=== PATIENT | male | born 1940 | race Caucasian/White ===

== ENCOUNTER 2016-12-14 13:18 | Inpatient (IN) ==
[2016-12-14] MEDS ORDERED: Ipratropium/Albuterol Neb 3 ML ONE (13:30)
[2016-12-14] MEDS ORDERED: Ipratropium/Albuterol Neb 3 ML IH ONE (13:38)
[2016-12-14] MEDS ORDERED: 0.9 % Sodium Chloride 1,000 ML IVC ONE (13:39)
--- NOTE | 2016-12-14 13:48 | Emergency Department Note ---
Disposition Clinical Impression: Hypoxia, Nonspecific ST-T changes, Elevated troponin, REBEKAH (acute kidney injury) CHF exacerbation Qualifiers: Congestive heart failure type: unspecified congestive heart failure type Qualified Code(s): I50.9 - Heart failure, unspecified Anemia Qualifiers: Anemia type: unspecified type Qualified Code(s): D64.9 - Anemia, unspecified UTI (urinary tract infection) Qualifiers: Urinary tract infection type: site unspecified Hematuria presence: without hematuria Qualified Code(s): N39.0 - Urinary tract infection, site not specified Disposition: Admitted As Inpatient Referrals: Molly Cortez CNP [Primary Care Provider] - Forms: ED Satisfaction Letter Time of Disposition: 16:00 SOB HPI - General Chief Complaint: ED Shortness of Breath/Dyspnea Stated Complaint: SOB Time Seen by Provider: 12/14/16 13:38 Source: patient, EMS Mode of arrival: EMS Limitations: no limitations Nursing Notes Reviewed: Yes Vital Signs Reviewed: Yes - History of Present Illness Patient is a 76-year-old male with past medical history pneumonia and receiving Rocephin through midline sinc Nov 24 and PO zithromax 250mg QD, COPD, congestive heart failure on Lasix 40 mg twice a day for CHF, CAD with stents, hypothyroidism, malnutrition, hypertension, hyperlipidemia, peripheral neuropathy, chronic pain syndrome, osteoarthritis. He presents today due to respiratory distress. Patient has [facility] satting upper 70s to low 80s [facility] EMS gave him SoluMedrol [address] Patient is having significant work of breathing, audible rales without using a stethoscope. Patient denies any chest pain, fevers, nausea, vomiting, abdominal pain. He says that this been going on for about a week and then worsening the past few days, prodcutive cough with thick phlegm. - Related Data Home Medications Medication Instructions Recorded Confirmed Albuterol Sulfate [Proair HFA] 90 mcg IH Q4HR PRN 08/20/15 11/14/16 Calcium Carbonate/Vitamin D3 1 each PO DAILY 08/20/15 11/14/16 [Calcium 600 + D Tablet] Cholecalciferol (Vitamin D3) 1,000 unit PO DAILY 08/20/15 11/14/16 [Vitamin D] Dutasteride [Avodart] 0.5 mg PO DAILY 08/20/15 11/14/16 Fenofibrate 48 mg PO DAILY 08/20/15 11/14/16 Gabapentin [Neurontin] 400 mg PO TID 08/20/15 11/14/16 Levothyroxine [Synthroid] 100 mcg PO DAILY 08/20/15 11/14/16 Metoprolol [Lopressor] 50 mg PO BID 08/20/15 11/14/16 Furosemide [Lasix] 80 mg PO DAILY 11/13/16 11/14/16 Guaifenesin [Mucinex] 600 mg PO Q12HR 11/13/16 11/14/16 Ipratropium/Albuterol Sulfate 18 mcg IH QID 11/13/16 11/14/16 [Combivent Respimat Inhal Maben] Sennosides/Docusate Sodium 8.6 mg PO HS 11/13/16 11/14/16 [Senna-Docusate Sodium Tablet] Tamsulosin [Flomax] 0.4 mg PO HS 11/13/16 11/14/16 Previous Rx's Medication Instructions Recorded Oxycodone HCl/Acetaminophen 1 each PO Q4-6H PRN #30 tablet 08/20/15 [Percocet 7.5-325 mg Tablet] Azithromycin [Zithromax] 250 mg IVPB Q24H 30 Days 11/22/16 CefTRIAXone [Rocephin] 1,000 mg IVPB Q12HR 30 Days 11/22/16 Allergies Allergy/AdvReac Type Severity Reaction Status Date / Time No Known Allergies Allergy Verified 11/13/16 20:07 Constitutional: Denies: fever, chills Cardiovascular: Reports: dyspnea on exertion. Denies: chest pain, palpitations Respiratory: Reports: cough, dyspnea, wheezes, sputum production Gastrointestinal: Denies: abdominal pain, nausea, vomiting, diarrhea, constipation Genitourinary: Denies: urgency, dysuria, frequency Musculoskeletal: Denies: back pain, neck pain Integumentary: Denies: rash Neurological: Denies: headache, weakness Psychiatric: Denies: anxiety, depression Past Medical History - Past Medical History Attestation: Yes The following information was validated with the patient. Source: patient Medical history: Reports: cancer, CHF, COPD, hypertension, myocardial infarction , other Surgical history: Reports: cataract, other Psychiatric history: Reports: anxiety - Social History Smoking Status: Current every day smoker Smokeless Tobacco Status: No Alcohol use: Reports: none Drug use: Reports: none Physical Exam - General Limitations: no limitations General appearance: in distress - Head Head exam: atraumatic, normocephalic, normal inspection - Eye Eye exam: Present: normal appearance, PERRL, EOMI - ENT ENT exam: normal exam, normal oropharynx, mucous membranes moist - Neck Neck exam: Present: normal inspection, full ROM, trachea midline - Chest Chest inspection: Present: normal inspection, symmetric chest wall rise - Respiratory Respiratory exam: Present: respiratory distress, accessory muscle use, other ( Patient is an moderate respiratory distress with accessory muscle use, audible rales without the use of a stethoscope. With stethoscope, patient has significant rales in all lung dill and moderate crackles in bilateral lower lobes.) - Cardiovascular Cardiovascular exam: Present: normal rhythm, tachycardia, normal heart sounds - Abdominal Exam Abdominal exam: Present: soft, Non-Tender. Absent: tenderness, distention, guarding, rebound, rigidity - Extremities Exam Extremities exam: Present: full ROM, pedal edema (From thigh to feet bilaterally , pitting). Absent: tenderness - Back Exam Back exam: Present: normal inspection, full ROM. Absent: tenderness - Neurological Exam Neurological exam: Present: alert, oriented X3 - Psychiatric Psychiatric exam: Present: normal affect, normal mood - Skin Skin exam: Present: warm, dry, intact, normal color Course Course Narrative: Patient was having an upper 70s on presentation. He is now in low to mid 90s on nonrebreather. He already received Solu-Medrol by EMS. Duonebs x3 has been ordered. Currently holding off on Lasix due to blood pressure 100/70. Patient is currently being treated for pneumonia and outside facility with Rocephin and Zithromax. Patient was in moderate respiratory distress on presentation, significant Rales in all lung dill, moderate crackles in bilateral lower lobes. Edema from thigh to feet bilaterally, pitting. We will perform full sepsis workup and CHF workup. We will also obtain EKG, chest x-ray , troponin, blood cultures. We will not start fluids at this time due to fear of fluid overload. We will wait for chest x-ray and then reassess. 14:07 According to the patient, he just stopped his Lasix on December 05. RUE midline placed on Nov 29. 14:26 Chest x-ray shows interstitial pulmonary edema and bilateral pleural effusions. Gave patient IV lasix 80mg and will give trial on BIPAP. 15:42 patient is tolerating BiPAP well. Chest x-ray and labs consistent with CHF exacerbation. Troponin mildly elevated at 0.04. There is also nonspecific ST changes on EKG. Likely secondary to CHF. Aspirin given, no chest pain at this time. Labs also show REBEKAH and anemia. Will admit patient for further care. Patient also has UTI but Dr. Patrick believes it may be due to colonization and would like to refrain from antibiotic treatment for now and send for culture. Otherwise, he has accepted for admission. Chest X-Ray 12/14/16 13:39 IMPRESSION: CHF with interstitial pulmonary edema, bilateral pleural effusions and bibasilar atelectasis. Mild progression from the comparison study. D/ / Bunny Jackson MD / Bunny Jackson MD Interpreting Provider: Bunny Jackson MD Vital Signs Temperature 97.8 F 12/14/16 13:22 Pulse Rate 104 12/14/16 13:22 Respiratory Rate 22 12/14/16 13:22 Blood Pressure 100/73 12/14/16 13:22 O2 Sat by Pulse Oximetry 79 L 12/14/16 13:22 Temperature 97.8 F 12/14/16 13:22 Pulse Rate 68 12/14/16 15:08 Respiratory Rate 13 12/14/16 15:08 Blood Pressure 106/62 12/14/16 15:08 O2 Sat by Pulse Oximetry 96 12/14/16 15:08 Oxygen Delivery Oxygen Delivery Bipap Shortness of Breath/Dyspnea - MDM Narrative Medical decision making narrative: patient is tolerating BiPAP well. Chest x-ray, labs, physical exam consistent with CHF exacerbation. Troponin mildly elevated at 0.04. There is also nonspecific ST changes on EKG. Likely secondary to CHF. Aspirin given, no chest pain at this time. Labs also show REBEKAH and anemia. Will admit patient for further care. Patient also has UTI but Dr. Patrick believes it may be due to colonization and would like to refrain from antibiotic treatment for now and send for culture. Otherwise, he has accepted for admission. - Medical Records Medical records reviewed: Yes I reviewed the patient's medical records. - Lab Data Lab results reviewed: Yes I reviewed the patient's lab results. Result diagrams: 12/14/16 14:22 12/14/16 14:22 Lab Results 12/14/16 12/14/16 12/14/16 Range/Units 13:50 14:22 14:22 WBC 6.3 (4.3-11.1) K/mcL RBC 3.88 L (4.19-5.50) M/mcL Hgb 10.8 L (12.9-16.9) g/dL Hct 35.7 L (37.5-50.1) % MCV 92.0 (83.0-100.0) fL MCH 27.8 L (28.0-33.3) pg MCHC 30.3 L (31.6-35.5) g/dL RDW 15.0 H (11.5-14.5) % Plt Count 180 (140-400) K/mcL MPV 11.1 (9.4-12.4) fL Immature Gran % 0.6 (0-4) % Seg Neutrophils % 76.5 % Lymphocytes % 15.4 % Monocytes % 3.8 % Eosinophils % 2.9 % Basophils % 0.8 % Neutrophils # 4.8 (1.6-8.9) K/mcL Lymphocytes # 1.0 (0.6-4.6) K/mcL Monocytes # 0.2 (0.0-1.3) K/mcL Eosinophils # 0.2 (0.0-0.6) K/mcL Basophils # 0.1 (0.0-0.2) K/mcL PT (9.4-12.1) Seconds INR APTT (26.0-36.0) Seconds ABG pH 7.43 (7.32-7.45) pH Units ABG pCO2 52 H (35-45) mmHg ABG pO2 73 L (85-104) mmHg ABG HCO3 34.5 H (21-27) mEQ/L ABG Total CO2 36.1 H (20-26) mEq/L ABG O2 Saturation 95 (95-98) % ABG Base Excess 9.0 H (-2.0 to 3.0) mEq/L Blood Gas Modality MASK Inspired O2 60 % Sodium 141 (136-145) mEq/L Potassium 4.8 H (3.5-4.5) mEq/L Chloride 102 (98-109) mEq/L Carbon Dioxide 31 H (19-29) mEq/L BUN 39 H (8-26) mg/dL Creatinine 2.06 H (0.72-1.25) mg/dL Est GFR ( Amer) 38 L (> 60) Est GFR (Non-Af Amer) 31 L (> 60) BUN/Creatinine Ratio 19 (6-26) Glucose 112 H (70-99) mg/dL Calculated Osmolality 302 H (280-300) Lactic Acid (0.5-2.2) mmol/L Calcium 9.0 (8.6-10.8) mg/dL Phosphorus 5.2 H (2.3-4.7) mg/dL Magnesium 2.3 (1.6-2.6) mg/dL Troponin I (0-0.03) ng/mL B-Natriuretic Peptide (0-100) pg/mL Urine Color (Yellow) Urine Clarity (Clear) Urine pH (5.0-8.0) pH Units Ur Specific [place] (1.010-1.025) Urine Protein (Neg-Trace) mg/dL Urine Glucose (UA) (Normal) mg/dL Urine Ketones (Negative) mg/dL Urine Blood (Negative) Urine Nitrite (Negative) Urine Bilirubin (Negative) Urine Urobilinogen (Normal) mg/dL Ur Leukocyte Esterase (Negative) Urine Microscopic RBC (0-3) per hpf Urine Microscopic WBC (0-3) per hpf Ur Squamous Epith Cells (None-Few) per lpf Urine Bacteria (None-Few) per hpf Hyaline Casts (None-Few) per lpf Urine Yeast (None Seen) per hpf Ur Culture Indicated? (NO) 12/14/16 12/14/16 12/14/16 Range/Units 14:22 14:22 14:22 WBC (4.3-11.1) K/mcL RBC (4.19-5.50) M/mcL Hgb (12.9-16.9) g/dL Hct (37.5-50.1) % MCV (83.0-100.0) fL MCH (28.0-33.3) pg MCHC (31.6-35.5) g/dL RDW (11.5-14.5) % Plt Count (140-400) K/mcL MPV (9.4-12.4) fL Immature Gran % (0-4) % Seg Neutrophils % % Lymphocytes % % Monocytes % % Eosinophils % % Basophils % % Neutrophils # (1.6-8.9) K/mcL Lymphocytes # (0.6-4.6) K/mcL Monocytes # (0.0-1.3) K/mcL Eosinophils # (0.0-0.6) K/mcL Basophils # (0.0-0.2) K/mcL PT 11.0 (9.4-12.1) Seconds INR 1.0 APTT 29.0 (26.0-36.0) Seconds ABG pH (7.32-7.45) pH Units ABG pCO2 (35-45) mmHg ABG pO2 (85-104) mmHg ABG HCO3 (21-27) mEQ/L ABG Total CO2 (20-26) mEq/L ABG O2 Saturation (95-98) % ABG Base Excess (-2.0 to 3.0) mEq/L Blood Gas Modality Inspired O2 % Sodium (136-145) mEq/L Potassium (3.5-4.5) mEq/L Chloride (98-109) mEq/L Carbon Dioxide (19-29) mEq/L BUN (8-26) mg/dL Creatinine (0.72-1.25) mg/dL Est GFR ( Amer) (> 60) Est GFR (Non-Af Amer) (> 60) BUN/Creatinine Ratio (6-26) Glucose (70-99) mg/dL Calculated Osmolality (280-300) Lactic Acid (0.5-2.2) mmol/L Calcium (8.6-10.8) mg/dL Phosphorus (2.3-4.7) mg/dL Magnesium (1.6-2.6) mg/dL Troponin I 0.04 H* (0-0.03) ng/mL B-Natriuretic Peptide 397 H (0-100) pg/mL Urine Color (Yellow) Urine Clarity (Clear) Urine pH (5.0-8.0) pH Units Ur Specific [place] (1.010-1.025) Urine Protein (Neg-Trace) mg/dL Urine Glucose (UA) (Normal) mg/dL Urine Ketones (Negative) mg/dL Urine Blood (Negative) Urine Nitrite (Negative) Urine Bilirubin (Negative) Urine Urobilinogen (Normal) mg/dL Ur Leukocyte Esterase (Negative) Urine Microscopic RBC (0-3) per hpf Urine Microscopic WBC (0-3) per hpf Ur Squamous Epith Cells (None-Few) per lpf Urine Bacteria (None-Few) per hpf Hyaline Casts (None-Few) per lpf Urine Yeast (None Seen) per hpf Ur Culture Indicated? (NO) 12/14/16 12/14/16 Range/Units 14:22 14:43 WBC (4.3-11.1) K/mcL RBC (4.19-5.50) M/mcL Hgb (12.9-16.9) g/dL Hct (37.5-50.1) % MCV (83.0-100.0) fL MCH (28.0-33.3) pg MCHC (31.6-35.5) g/dL RDW (11.5-14.5) % Plt Count (140-400) K/mcL MPV (9.4-12.4) fL Immature Gran % (0-4) % Seg Neutrophils % % Lymphocytes % % Monocytes % % Eosinophils % % Basophils % % Neutrophils # (1.6-8.9) K/mcL Lymphocytes # (0.6-4.6) K/mcL Monocytes # (0.0-1.3) K/mcL Eosinophils # (0.0-0.6) K/mcL Basophils # (0.0-0.2) K/mcL PT (9.4-12.1) Seconds INR APTT (26.0-36.0) Seconds ABG pH (7.32-7.45) pH Units ABG pCO2 (35-45) mmHg ABG pO2 (85-104) mmHg ABG HCO3 (21-27) mEQ/L ABG Total CO2 (20-26) mEq/L ABG O2 Saturation (95-98) % ABG Base Excess (-2.0 to 3.0) mEq/L Blood Gas Modality Inspired O2 % Sodium (136-145) mEq/L Potassium (3.5-4.5) mEq/L Chloride (98-109) mEq/L Carbon Dioxide (19-29) mEq/L BUN (8-26) mg/dL Creatinine (0.72-1.25) mg/dL Est GFR ( Amer) (> 60) Est GFR (Non-Af Amer) (> 60) BUN/Creatinine Ratio (6-26) Glucose (70-99) mg/dL Calculated Osmolality (280-300) Lactic Acid 0.9 (0.5-2.2) mmol/L Calcium (8.6-10.8) mg/dL Phosphorus (2.3-4.7) mg/dL Magnesium (1.6-2.6) mg/dL Troponin I (0-0.03) ng/mL B-Natriuretic Peptide (0-100) pg/mL Urine Color Yellow (Yellow) Urine Clarity Cloudy A (Clear) Urine pH 6.5 (5.0-8.0) pH Units Ur Specific [place] 1.012 (1.010-1.025) Urine Protein 100 H (Neg-Trace) mg/dL Urine Glucose (UA) Normal (Normal) mg/dL Urine Ketones Negative (Negative) mg/dL Urine Blood Moderate H (Negative) Urine Nitrite Negative (Negative) Urine Bilirubin Negative (Negative) Urine Urobilinogen Normal (Normal) mg/dL Ur Leukocyte Esterase Small H (Negative) Urine Microscopic RBC 30-50 H (0-3) per hpf Urine Microscopic WBC 50-100 H (0-3) per hpf Ur Squamous Epith Cells Many H (None-Few) per lpf Urine Bacteria Few (None-Few) per hpf Hyaline Casts Few (None-Few) per lpf Urine Yeast Few H (None Seen) per hpf Ur Culture Indicated? YES A (NO) - Radiology Data Radiology results reviewed: Yes I reviewed the patient's radiology results. Chest X-Ray 12/14/16 13:39 IMPRESSION: CHF with interstitial pulmonary edema, bilateral pleural effusions and bibasilar atelectasis. Mild progression from the comparison study. D/ / Bunny Jackson MD / Bunny Jackson MD Interpreting Provider: Bunny Jackson MD - EKG Data EKG attestation: Yes I reviewed and interpreted this EKG. EKG results narrative: EKG #1. 12/14/2016 at 13:48. Normal sinus rhythm. Rate 64. QTC 398. QRS 101. Normal axis. T-wave inversion in aVR, V1, V2, V3. Also mild ST depression in V2 and V3. T waves in lead V3 and ST depression in V2 and V3 are new compared to previous EKG on 11/24/2016 EKG #2. RIGHT SIDED EKG. 12/14/2016 at 13:58. Normal sinus rhythm. Rate 68. QTC 404. QRS 94. Normal Wol[place] No acute ST elevation seen. Critical Care Time Critical Care Time: Yes Total Critical Care Time: 35 Attestation: Critical care performed: Time is exclusive of separately billable procedures. Time includes: direct patient care, patient reassessment, coordination of patient care, interpretation of data (laboratory data, radiology data, and respiratory data), review of patient's medical records, medical consultation and documentation of patient care. Procedures included in critical care time: Procedures excluded from critical care time: . Faustino - Faustino Situation: Demographics, MOA Background: Presenting Complaint, Relevant PMH, Meds, & Allergies Assessment: Vital Signs, Course and respsone to treatment, Exam Concerns, Patient/Family Expectation, Pertinant Lab Results, Outstanding Labs Recommendation: Barrier(s) to disposition, Recommendation based on pending studies, treatments, or consults SMatilde Report Given to: Dr. Darnell Harmon Repor Time: 16:00 Attestation Statement - Attestation Attestation: I examined this patient and my medical decision-making was reviewed with the FLIGHT ENGINEER INSPECTOR/PA/Advanced Practice Nurse/Resident Physician. I agree with the documented findings, disposition and treatment plan as described except to the extent set forth below. Patient emergency department with shortness of breath. [facility] Came in for shortness of breath and hypoxia. History of CHF. Increased swelling in his legs. On exam he is to get visibly dyspneic. Lungs with rales. Rhonchi. Patient has an indwelling [place] with a soft abdomen. Plan. Patient is a CHF exacerbation. He also has a UTI. Starting IV antibiotics. Tolerating BiPAP at this time. Admitting to medicine.
[2016-12-14 14:00] LABS: ABG HCO3 34.5 mEQ/L (21-27); ABG Oxygen Saturation 95 % (95-98); ABG PCO2 52 mmHg (35-45); ABG PH 7.43 pH Units (7.32-7.45); ABG PO2 73 mmHg (85-104); ABG TCO2 36.1 mEq/L (20-26)
[2016-12-14 14:01] LABS: Blood Gas FiO2 60 %
[2016-12-14] MEDS ORDERED: Aspirin 325 MG TABLET PO ONE (14:04)
[2016-12-14] MEDS ORDERED: Furosemide 40 MG/4 ML VIAL IVP ONE (14:18)
[2016-12-14 14:34] LABS: Basophils # 0.1 K/mcL (0.0-0.2); Basophils % 0.8 %; Eosinophils # 0.2 K/mcL (0.0-0.6); Eosinophils % 2.9 %; Hematocrit 35.7 % (37.5-50.1); Hemoglobin 10.8 g/dL (12.9-16.9); Immature Granulocytes % 0.6 % (0-4); Lymphocytes % 15.4 %; Mean Corpuscular HGB Conc 30.3 g/dL (31.6-35.5); Mean Corpuscular Hemoglobin 27.8 pg (28.0-33.3); Mean Platelet Volume 11.1 fL (9.4-12.4); Monocytes # 0.2 K/mcL (0.0-1.3); Monocytes % 3.8 %; Neutrophils # 4.8 K/mcL (1.6-8.9); Platelet Count 180 K/mcL (140-400); Red Blood Count 3.88 M/mcL (4.19-5.50); Segmented Neutrophils % 76.5 %
[2016-12-14 14:44] LABS: Magnesium 2.3 mg/dL (1.6-2.6); Phosphorous 5.2 mg/dL (2.3-4.7); Potassium 4.8 mEq/L (3.5-4.5)
[2016-12-14 14:50] LABS: Bilirubin,Urine Negative (Negative); Blood,Urine Moderate (Negative); Clarity,Urine Cloudy (Clear); Color,Urine Yellow (Yellow); Glucose,Urine (UA) Normal (Normal); Ketones,Urine Negative (Negative); Leukocyte Esterase,Urine Small (Negative); Nitrite,Urine Negative (Negative); PH,Urine 6.5 pH Units (5.0-8.0); Protein,Urine 100 mg/dL (Neg-Trace); Specific Gravity,Urine 1.012 (1.010-1.025); Urobilinogen,Urine Normal (Normal)
[2016-12-14 14:52] LABS: Hyaline Casts,Urine Few per lpf (None-Few); RBC,Urine 30-50 per hpf (0-3); Squamous Epithelial Cell,Urine Many per lpf (None-Few); WBC,Urine 50-100 per hpf (0-3)
[2016-12-14 15:05] LABS: Bacteria,Urine Few per hpf (None-Few); Yeast,Urine Few per hpf (None Seen)
[2016-12-14] MEDS ORDERED: Naloxone 0.4 MG/ML INJ IVP PRN (17:56)
[2016-12-14] MEDS ORDERED: Ipratropium/Albuterol Neb 3 ML IH PRN (17:58)
[2016-12-14] MEDS ORDERED: *HR* HYDROcodone/Acet 5/325 mg TABLET PO PRN (17:58)
--- NOTE | 2016-12-14 18:38 | Internal Med History&Physical ---
Date of Encounter: 12/15/16 Time of Encounter: 18:30 Assessment and Plan (1) Acute on chronic diastolic (congestive) heart failure Current visit: Yes Status: Acute Patient with history of Congestive heart failure. He is presenting with shortness of breath, BLE edema. CXR shows CHF with interstitial pulmonary edema , bilateral pleural effusions and bibasilar atelectasis. Last echo 11/13/2016 showed mild diastolic dysfunction, EF 60-65%. He is taking 80mg of lasix PO BID at home. He was given 80mg lasix IVP in ED and placed on Bipap. Continue Bipap, maintain O2 saturations > 92% 60mg lasix IVP BID. Will plan consult to cardiology. (2) REBEKAH (acute kidney injury) Current visit: Yes Status: Acute Creatinine 2.06 up from previous of 1.12. Likely cardio-renal with acute exacerbation of CHF, however last echo showed EF of 60-65%. will get UA with reflex to culture and micro. Hold off on fluids now due to CHF exacerbation. Anticipate kidney function will worsen with lasix needed for CHF exacerbation. Avoid NSAIDS, ACEs/ARBS Consult to nephrology (3) Acute and chronic respiratory failure with hypoxia Current visit: No Status: Acute Patient with shortness of breath, satting in the 70s on presentation and 79% on 5L NC on my evaluation. ABG shows pCO2 of 52 and PO2 of 73, O2 saturation of 95 %. On bipap, saturation improves to 90s. Continue Bipap. titrate to maintain O2 saturation > 92%. Duoneb treatments QIDR albuterol nebulizer Q2 PRN (4) Chronic indwelling Atkinson catheter Current visit: No Status: Chronic (5) Hypertension Current visit: No Status: Chronic Qualifiers: Hypertension type: essential hypertension Qualified Code(s): I10 - Essential (primary) hypertension (6) DVT prophylaxis Current visit: Yes Status: Acute Up to chair BID anti-embolic stockings Heparin 5,000u SQ BID Internal Medicine - H&P: HPI Chief complaint: shortness of breath Admitted From: Emergency Dept Plans for Post Hospital Care: Transfer [facility] History of present illness: Mr. Bustos is a 76 year old male with HTN, hyperlipidemia, CAD, Congestive heart failure, and chronic pain, who was brought to the ED today by EMS with worsening shortness of breath. He was reportedly satting in the upper 70s to 80s at the care home earlier today. Patient denies any chest pain, fevers, nausea, vomiting, abdominal pain. He says that this been going on for about a week and then worsening the past few days. He reports a productive cough with thick sputum. Patient denies any chest pain, fevers, nausea, vomiting, abdominal pain. Evaluation in the ED was significant for elevated BNP of 397, up from previous of 51, REBEKAH with Creatinine of 2.06, up from previous of 1.12, CXR which showed interstitial pulmonary edema and bilateral pleural effusions. He was given duoneb treatments, 80mg of lasix IVP and put on bipap with improvement of saturations to low 90s. On exam, patient is satting 79% on 5L NC , initially refusing bipap. I explained purpose of bipap was not only to give him oxygen, but to also help push the fluid from his lungs, and he agreed to wear the bipap mask. Once bipap on, patient was satting 100%. Patient seemed a bit confused, likely due to hypoxia, but was able to answer most questions appropriately. His BLE had +3 edema. Past Med Surg Social Fam HX - Past Medical History Medical history: cancer, CHF, COPD, hypertension, myocardial infarction, other Psychiatric history: anxiety - Past Surgical History Surgical History: cataract, other - Social History Smoking Status: Current every day smoker Smokeless Tobacco Status: No Alcohol use: none Drug use: none - Family History Mother Living Status: Father Living Status: Internal Medicine - H&P: Meds Albuterol Sulfate [Proair HFA] 2 puff IH Q4HR PRN 08/20/15 [History] Calcium Carbonate/Vitamin D3 [Calcium 600 + D Tablet] 1 each PO DAILY 08/20/15 [ History] Cholecalciferol (Vitamin D3) [Vitamin D] 1,000 unit PO DAILY 08/20/15 [History] Dutasteride [Avodart] 0.5 mg PO DAILY 08/20/15 [History] Fenofibrate 48 mg PO DAILY 08/20/15 [History] Gabapentin [Neurontin] 400 mg PO TID 08/20/15 [History] Levothyroxine [Synthroid] 100 mcg PO DAILY 08/20/15 [History] Furosemide [Lasix] 80 mg PO DAILY 11/13/16 [History] Guaifenesin [Mucinex] 600 mg PO Q12HR PRN 11/13/16 [History] Ipratropium/Albuterol Sulfate [Combivent Respimat Inhal [place]] 1 - 2 puff IH QID 11/13/16 [History] Sennosides/Docusate Sodium [Senna-Docusate Sodium Tablet] 8.6 mg PO HS 11/13/16 [History] Tamsulosin [Flomax] 0.4 mg PO HS 11/13/16 [History] HYDROcodone/Acet 5/325 mg [[place] 5-325 mg] 1 tab PO Q8H PRN 12/14/16 [History] Ipratropium/Albuterol Neb [Duoneb] 3 ml IH Q6H PRN 12/14/16 [History] Metoprolol [Lopressor] 25 mg PO BID 12/14/16 [History] Mometasone/Formoterol [Dulera 200 Mcg/5 Mcg Inhaler] 2 puff IH BID 12/14/16 [ History] Allergies No Known Allergies Allergy (Verified 11/13/16 20:07) All Systems PM: A 10-system review of systems was performed and is negative for pertinent findings except as documented above in the HPI. - Constitutional Constitutional: no chills, no fever(s), no night sweats - EENT Eyes: no change in vision, no discharge, no pain, no photophobia Ears: no ear discharge, no ear pain, no tinnitus Nose, mouth and throat: no dysphagia, no nasal discharge, no neck pain, no sore throat - Cardiovascular Cardiovascular ROS IM: dyspnea, dyspnea on exertion, edema, no chest pain, no diaphoresis, no lightheadedness, no palpitations, no syncope - Respiratory Respiratory: cough, dyspnea, dyspnea on exertion, wheezing, excessive phlegm production - Gastrointestinal Gastrointestinal: no abdominal pain, no diarrhea, no hematemesis, no hematochezia, no melena, no nausea, no vomiting - Musculoskeletal Musculoskeletal ROS IM: no numbness, no tingling - Integumentary Integumentary IM: no rash, no unusual bruising - Neurological Neurological ROS: no confusion, no convulsions, no focal weakness, no numbness, no tingling, no tremor(s) - Hematologic/Lymphatic Hematologic/Lymphatic: no easy bruising - Constitutional Vitals: Temp Pulse Resp BP Pulse Ox 97.8 F 85 20 126/66 79 L 12/14/16 13:22 12/14/16 17:18 12/14/16 17:18 12/14/16 17:18 12/14/16 17:18 General appearance: Present: A&O X 3, answers questions appropriately - Head Head exam: Present: atraumatic, normocephalic - Eye Eye exam: Present: PERRL, conjuntiva pink, sclera anicteric Pupils: Present: PERRL - Neck Neck exam general surgery: Present: supple, trachea midline. Absent: lymphadenopathy - Respiratory Respiratory exam: Present: prolonged expiratory phase, rales, rhonchi, wheezes. Absent: accessory muscle use - Cardiovascular Cardiovascular exam: Present: RRR, +S1, +S2. Absent: diastolic murmur, gallop, rubs, systolic murmur - GI/Abdominal GI/Abdominal exam: Present: normal bowel sounds, soft, no peritoneal signs. Absent: distended, tenderness - Extremities Exam Extremities exam: Present: pedal edema (BLE +3 edema), warm, radial pulses palpable and symetrical. Absent: calf tenderness, cyanotic - Neurological Exam Neurological exam: Present: CN II-XII intact, oriented X3, no focal deficits. Absent: facial droop, speech deficit - Skin Skin exam: Present: dry, intact Internal Med - H&P Results - Labs CBC & Chem 7: 12/14/16 14:22 12/14/16 14:22 Labs: All Lab Results (24 Hours) 12/14/16 12/14/16 12/14/16 Range/Units 13:50 14:22 14:22 WBC 6.3 (4.3-11.1) K/mcL RBC 3.88 L (4.19-5.50) M/mcL Hgb 10.8 L (12.9-16.9) g/dL Hct 35.7 L (37.5-50.1) % MCV 92.0 (83.0-100.0) fL MCH 27.8 L (28.0-33.3) pg MCHC 30.3 L (31.6-35.5) g/dL RDW 15.0 H (11.5-14.5) % Plt Count 180 (140-400) K/mcL MPV 11.1 (9.4-12.4) fL Immature Gran % 0.6 (0-4) % Seg Neutrophils % 76.5 % Lymphocytes % 15.4 % Monocytes % 3.8 % Eosinophils % 2.9 % Basophils % 0.8 % Neutrophils # 4.8 (1.6-8.9) K/mcL Lymphocytes # 1.0 (0.6-4.6) K/mcL Monocytes # 0.2 (0.0-1.3) K/mcL Eosinophils # 0.2 (0.0-0.6) K/mcL Basophils # 0.1 (0.0-0.2) K/mcL PT (9.4-12.1) Seconds INR APTT (26.0-36.0) Seconds ABG pH 7.43 (7.32-7.45) pH Units ABG pCO2 52 H (35-45) mmHg ABG pO2 73 L (85-104) mmHg ABG HCO3 34.5 H (21-27) mEQ/L ABG Total CO2 36.1 H (20-26) mEq/L ABG O2 Saturation 95 (95-98) % ABG Base Excess 9.0 H (-2.0 to 3.0) mEq/L Blood Gas Modality MASK Inspired O2 60 % Sodium 141 (136-145) mEq/L Potassium 4.8 H (3.5-4.5) mEq/L Chloride 102 (98-109) mEq/L Carbon Dioxide 31 H (19-29) mEq/L BUN 39 H (8-26) mg/dL Creatinine 2.06 H (0.72-1.25) mg/dL Est GFR ( Amer) 38 L (> 60) Est GFR (Non-Af Amer) 31 L (> 60) BUN/Creatinine Ratio 19 (6-26) Glucose 112 H (70-99) mg/dL Calculated Osmolality 302 H (280-300) Lactic Acid (0.5-2.2) mmol/L Calcium 9.0 (8.6-10.8) mg/dL Phosphorus 5.2 H (2.3-4.7) mg/dL Magnesium 2.3 (1.6-2.6) mg/dL Troponin I (0-0.03) ng/mL B-Natriuretic Peptide (0-100) pg/mL Urine Color (Yellow) Urine Clarity (Clear) Urine pH (5.0-8.0) pH Units Ur Specific [place] (1.010-1.025) Urine Protein (Neg-Trace) mg/dL Urine Glucose (UA) (Normal) mg/dL Urine Ketones (Negative) mg/dL Urine Blood (Negative) Urine Nitrite (Negative) Urine Bilirubin (Negative) Urine Urobilinogen (Normal) mg/dL Ur Leukocyte Esterase (Negative) Urine Microscopic RBC (0-3) per hpf Urine Microscopic WBC (0-3) per hpf Ur Squamous Epith Cells (None-Few) per lpf Urine Bacteria (None-Few) per hpf Hyaline Casts (None-Few) per lpf Urine Yeast (None Seen) per hpf Ur Culture Indicated? (NO) 12/14/16 12/14/16 12/14/16 Range/Units 14:22 14:22 14:22 WBC (4.3-11.1) K/mcL RBC (4.19-5.50) M/mcL Hgb (12.9-16.9) g/dL Hct (37.5-50.1) % MCV (83.0-100.0) fL MCH (28.0-33.3) pg MCHC (31.6-35.5) g/dL RDW (11.5-14.5) % Plt Count (140-400) K/mcL MPV (9.4-12.4) fL Immature Gran % (0-4) % Seg Neutrophils % % Lymphocytes % % Monocytes % % Eosinophils % % Basophils % % Neutrophils # (1.6-8.9) K/mcL Lymphocytes # (0.6-4.6) K/mcL Monocytes # (0.0-1.3) K/mcL Eosinophils # (0.0-0.6) K/mcL Basophils # (0.0-0.2) K/mcL PT 11.0 (9.4-12.1) Seconds INR 1.0 APTT 29.0 (26.0-36.0) Seconds ABG pH (7.32-7.45) pH Units ABG pCO2 (35-45) mmHg ABG pO2 (85-104) mmHg ABG HCO3 (21-27) mEQ/L ABG Total CO2 (20-26) mEq/L ABG O2 Saturation (95-98) % ABG Base Excess (-2.0 to 3.0) mEq/L Blood Gas Modality Inspired O2 % Sodium (136-145) mEq/L Potassium (3.5-4.5) mEq/L Chloride (98-109) mEq/L Carbon Dioxide (19-29) mEq/L BUN (8-26) mg/dL Creatinine (0.72-1.25) mg/dL Est GFR ( Amer) (> 60) Est GFR (Non-Af Amer) (> 60) BUN/Creatinine Ratio (6-26) Glucose (70-99) mg/dL Calculated Osmolality (280-300) Lactic Acid (0.5-2.2) mmol/L Calcium (8.6-10.8) mg/dL Phosphorus (2.3-4.7) mg/dL Magnesium (1.6-2.6) mg/dL Troponin I 0.04 H* (0-0.03) ng/mL B-Natriuretic Peptide 397 H (0-100) pg/mL Urine Color (Yellow) Urine Clarity (Clear) Urine pH (5.0-8.0) pH Units Ur Specific [place] (1.010-1.025) Urine Protein (Neg-Trace) mg/dL Urine Glucose (UA) (Normal) mg/dL Urine Ketones (Negative) mg/dL Urine Blood (Negative) Urine Nitrite (Negative) Urine Bilirubin (Negative) Urine Urobilinogen (Normal) mg/dL Ur Leukocyte Esterase (Negative) Urine Microscopic RBC (0-3) per hpf Urine Microscopic WBC (0-3) per hpf Ur Squamous Epith Cells (None-Few) per lpf Urine Bacteria (None-Few) per hpf Hyaline Casts (None-Few) per lpf Urine Yeast (None Seen) per hpf Ur Culture Indicated? (NO) 12/14/16 12/14/16 12/14/16 Range/Units 14:22 14:43 15:59 WBC (4.3-11.1) K/mcL RBC (4.19-5.50) M/mcL Hgb (12.9-16.9) g/dL Hct (37.5-50.1) % MCV (83.0-100.0) fL MCH (28.0-33.3) pg MCHC (31.6-35.5) g/dL RDW (11.5-14.5) % Plt Count (140-400) K/mcL MPV (9.4-12.4) fL Immature Gran % (0-4) % Seg Neutrophils % % Lymphocytes % % Monocytes % % Eosinophils % % Basophils % % Neutrophils # (1.6-8.9) K/mcL Lymphocytes # (0.6-4.6) K/mcL Monocytes # (0.0-1.3) K/mcL Eosinophils # (0.0-0.6) K/mcL Basophils # (0.0-0.2) K/mcL PT (9.4-12.1) Seconds INR APTT (26.0-36.0) Seconds ABG pH (7.32-7.45) pH Units ABG pCO2 (35-45) mmHg ABG pO2 (85-104) mmHg ABG HCO3 (21-27) mEQ/L ABG Total CO2 (20-26) mEq/L ABG O2 Saturation (95-98) % ABG Base Excess (-2.0 to 3.0) mEq/L Blood Gas Modality Inspired O2 % Sodium (136-145) mEq/L Potassium (3.5-4.5) mEq/L Chloride (98-109) mEq/L Carbon Dioxide (19-29) mEq/L BUN (8-26) mg/dL Creatinine (0.72-1.25) mg/dL Est GFR ( Amer) (> 60) Est GFR (Non-Af Amer) (> 60) BUN/Creatinine Ratio (6-26) Glucose (70-99) mg/dL Calculated Osmolality (280-300) Lactic Acid 0.9 1.2 (0.5-2.2) mmol/L Calcium (8.6-10.8) mg/dL Phosphorus (2.3-4.7) mg/dL Magnesium (1.6-2.6) mg/dL Troponin I (0-0.03) ng/mL B-Natriuretic Peptide (0-100) pg/mL Urine Color Yellow (Yellow) Urine Clarity Cloudy A (Clear) Urine pH 6.5 (5.0-8.0) pH Units Ur Specific [place] 1.012 (1.010-1.025) Urine Protein 100 H (Neg-Trace) mg/dL Urine Glucose (UA) Normal (Normal) mg/dL Urine Ketones Negative (Negative) mg/dL Urine Blood Moderate H (Negative) Urine Nitrite Negative (Negative) Urine Bilirubin Negative (Negative) Urine Urobilinogen Normal (Normal) mg/dL Ur Leukocyte Esterase Small H (Negative) Urine Microscopic RBC 30-50 H (0-3) per hpf Urine Microscopic WBC 50-100 H (0-3) per hpf Ur Squamous Epith Cells Many H (None-Few) per lpf Urine Bacteria Few (None-Few) per hpf Hyaline Casts Few (None-Few) per lpf Urine Yeast Few H (None Seen) per hpf Ur Culture Indicated? YES A (NO) - VTE Documentation of Mechanical Device: Graduated compression elastic hosiery
[2016-12-14] MEDS ORDERED: Ipratropium/Albuterol Neb 3 ML IH SCH (19:15)
--- NOTE | 2016-12-14 19:55 | Electrocardiograph Report ---
[facility] Date: 2016-12-14 Pat Name: Pastor Bustos Department: [id number] Room: 2NE23 Gender: M Hand Rigger: : [id number] Requested By: Jacob Martínez Order Number: [id number] Reading MD: Barry Kimball DO Measurements Intervals [place] Rate: 64 P: 40 SD: 197 QRS: 28 QRSD: 101 T: 33 QT: 388 QTc: 398 Interpretive Statements SINUS RHYTHM ST DEVIATION AND MODERATE T-WAVE ABNORMALITY, CONSIDER ANTERIOR ISCHEMIA [-0.1+ mV T WAVE IN V3/V4] Electronically Signed On 12-14-2016 19:52:56 EST by Barry Kimball DO
[2016-12-14] MEDS ORDERED: Furosemide 40 MG/4 ML VIAL IVP SCH (21:00)
[2016-12-14] MEDS ORDERED: Furosemide 100 MG/10 ML VIAL IVP SCH ×2 (21:00)
[2016-12-14] MEDS: Gabapentin 400 MG CAPSULE PO SCH (21:18)
[2016-12-14] MEDS ORDERED: *HR* LORazepam 2 MG/ML VIAL IVP PRN (21:33)
[2016-12-14] MEDS ORDERED: *HR* LORazepam 2 MG/ML VIAL ONE (21:49)
[2016-12-14] MEDS: Ipratropium/Albuterol Neb 3 ML IH SCH (22:36)
[2016-12-14] MEDS: Budesonide/Formoterol 80/4.5 MDI IH SCH (22:37)
[2016-12-15 04:00] LABS: Basophils % 0.2 %; Hematocrit 31.6 % (37.5-50.1); Hemoglobin 9.7 g/dL (12.9-16.9); Immature Granulocytes % 0.6 % (0-4); Lymphocytes % 21.4 %; Mean Corpuscular HGB Conc 30.7 g/dL (31.6-35.5); Mean Corpuscular Hemoglobin 27.7 pg (28.0-33.3); Mean Corpuscular Volume 90.3 fL (83.0-100.0); Mean Platelet Volume 10.9 fL (9.4-12.4); Monocytes # 0.2 K/mcL (0.0-1.3); Monocytes % 4.7 %; Neutrophils # 3.4 K/mcL (1.6-8.9); Platelet Count 173 K/mcL (140-400); Red Cell Distribution Width 14.7 % (11.5-14.5); Segmented Neutrophils % 73.1 %
[2016-12-15] MEDS: Ipratropium/Albuterol Neb 3 ML IH SCH ×4 (04:11→21:32)
[2016-12-15 04:24] LABS: Calcium 8.8 mg/dL (8.6-10.8); Potassium 5.2 mEq/L (3.5-4.5)
[2016-12-15 04:55] LABS: ABG Base Excess 11.1 mEq/L (-2.0 to 3.0); ABG HCO3 36.7 mEQ/L (21-27); ABG Oxygen Saturation 94 % (95-98); ABG PCO2 54 mmHg (35-45); ABG PH 7.44 pH Units (7.32-7.45); ABG PO2 68 mmHg (85-104); ABG TCO2 38.4 mEq/L (20-26)
[2016-12-15 04:56] LABS: Blood Gas FiO2 60 %; Blood Gas PEEP 6 cm H2O; Blood Gas Respiration Rate 12
[2016-12-15] MEDS: *HR* Heparin 5,000 UNIT/ML VIAL SQ SCH ×2 (05:46→21:22)
--- NOTE | 2016-12-15 08:32 | Nephrology Consult Note ---
Date of Encounter: 12/15/16 Time of Encounter: 08:30 Assessment and Plan (1) REBEKAH (acute kidney injury) Current Visit: Yes Status: Acute Patient has acute kidney injury in association with metabolic alkalosis. I suspect the patient is volume depleted related to the Lasix. I also suspect that the majority of his respiratory complaints are related to COPD. He also has a recent CT scan suggestive of a possible lung mass. My recommendation would be to hold his Lasix. I think he would benefit from another CT scan since it has been a month since his previous one. I also believe he would benefit from aggressive treatment of a COPD exacerbation and possible pulmonary consultation. (2) Abnormal CT scan, chest Current Visit: No Status: Acute (3) Acute exacerbation of chronic obstructive pulmonary disease (COPD) Current Visit: No Status: Acute History of Present Illness - History of Present Illness This is a 76-year-old male who was admitted from the correction with worsening shortness of breath. Patient says he noted over the past several days worsening exertional dyspnea. Apparently was hypoxic at the correction. He subsequently was admitted to the hospital. He is been diagnosed with worsening congestive heart failure. Patient was noted to have acute kidney injury with a creatinine of 2.0. Previous creatinine was 1.12. Chest x-ray suggested congestive heart failure. Patient was admitted in November. He was seen by pulmonary at that time. CT scan showed a possible left upper lobe mass. Patient was recommended to have a repeat CT scan and possible bronchoscopy. Patient has a long history of smoking. He has been smoking since he was 12 years old. Other than the elevated creatinine the patient presented with metabolic alkalosis likely related to chronic Lasix administration. Past Med Surg Social Fam HX - Past Medical History Medical history: cancer, CHF, COPD, hypertension, myocardial infarction, other Psychiatric history: anxiety - Past Surgical History Surgical History: cataract, other - Social History Smoking Status: Current every day smoker Smokeless Tobacco Status: No Alcohol use: none Drug use: none - Family History Mother Living Status: Father Living Status: Medications and Allergies Albuterol Sulfate [Proair HFA] 2 puff IH Q4HR PRN 08/20/15 [History] Calcium Carbonate/Vitamin D3 [Calcium 600 + D Tablet] 1 each PO DAILY 08/20/15 [ History] Cholecalciferol (Vitamin D3) [Vitamin D] 1,000 unit PO DAILY 08/20/15 [History] Dutasteride [Avodart] 0.5 mg PO DAILY 08/20/15 [History] Fenofibrate 48 mg PO DAILY 08/20/15 [History] Gabapentin [Neurontin] 400 mg PO TID 08/20/15 [History] Levothyroxine [Synthroid] 100 mcg PO DAILY 08/20/15 [History] Furosemide [Lasix] 80 mg PO DAILY 11/13/16 [History] Guaifenesin [Mucinex] 600 mg PO Q12HR PRN 11/13/16 [History] Ipratropium/Albuterol Sulfate [Combivent Respimat Inhal [place]] 1 - 2 puff IH QID 11/13/16 [History] Sennosides/Docusate Sodium [Senna-Docusate Sodium Tablet] 8.6 mg PO HS 11/13/16 [History] Tamsulosin [Flomax] 0.4 mg PO HS 11/13/16 [History] HYDROcodone/Acet 5/325 mg [[place] 5-325 mg] 1 tab PO Q8H PRN 12/14/16 [History] Ipratropium/Albuterol Neb [Duoneb] 3 ml IH Q6H PRN 12/14/16 [History] Metoprolol [Lopressor] 25 mg PO BID 12/14/16 [History] Mometasone/Formoterol [Dulera 200 Mcg/5 Mcg Inhaler] 2 puff IH BID 12/14/16 [ History] Allergies No Known Allergies Allergy (Verified 11/13/16 20:07) Review of Systems Constitutional: as per HPI, weakness Eyes: bilateral: blurred vision (patient denies), diplopia (patient denies) Nose, mouth and throat: no dizziness, no headache(s) Cardiovascular: as per HPI, dyspnea, dyspnea on exertion, edema Respiratory: as per HPI, dyspnea, dyspnea on exertion Gastrointestinal: no abdominal pain, no change in bowel habits Musculoskeletal: no muscle weakness, no numbness Integumentary: no hirsutism, no striae Neurological: weakness Psychiatric: no depression, no difficulty concentrating Endocrine: as per HPI Hematologic/Lymphatic: no easy bruising, no lymphadenopathy Exam - Vital Signs Vital signs: Initial Vital Signs Temp Pulse Resp BP Pulse Ox 97.8 F 104 22 100/73 79 L 12/14/16 13:22 12/14/16 13:22 12/14/16 13:22 12/14/16 13:22 12/14/16 13:22 Vital Signs - Last 8 Hours Temp Pulse Resp BP Pulse Ox 12/15/16 06:54 97.5 F L 55 15 110/67 99 12/15/16 04:24 98.9 F 65 12 111/65 98 12/15/16 04:11 9 100 Intake and Output 12/14/16 12/15/16 12/15/16 23:59 07:59 15:59 Intake Total 120 / 120 Output Total 1700 / 1700 Balance -1580 / -1580 Intake: Oral 120 / 120 Output: Catheter 1700 / 1700 Other: Weight 91.2 kg 89.3 kg Patient Weight 12/15/16 23:59 Weight 89.3 kg - General Appearance Exam: Patient is sitting up in the chair eating breakfast. He is alert and oriented. He is in no acute distress. Neck is supple. Lungs bilateral rhonchi and expiratory wheezing. Heart regular rate and rhythm with a 2/6 soft ejection murmur. Abdomen is benign. Lower extremities show trace lower extremity swelling. Compression stockings are in place. A Atkinson catheter is in place draining nii colored urine. Results - Lab Results 12/15/16 03:27 12/15/16 03:27 Most recent lab results ABG pH 7.44 pH Units (7.32-7.45) 12/15/16 04:43 ABG pCO2 54 mmHg (35-45) H 12/15/16 04:43 ABG pO2 68 mmHg (85-104) L 12/15/16 04:43 ABG HCO3 36.7 mEQ/L (21-27) H 12/15/16 04:43 ABG O2 Saturation 94 % (95-98) L 12/15/16 04:43 Calcium 8.8 mg/dL (8.6-10.8) 12/15/16 03:27 Phosphorus 5.2 mg/dL (2.3-4.7) H 12/14/16 14:22 Magnesium 2.3 mg/dL (1.6-2.6) 12/14/16 14:22 Consult Discharge Plan - Plan Referrals: Molly Cortez, RIAZ [Primary Care Provider] -
[2016-12-15] MEDS: Gabapentin 400 MG CAPSULE PO SCH ×3 (09:08→21:22)
--- NOTE | 2016-12-15 10:29 | Internal Med Progress Note ---
<Barry Leavitt - Last Filed: 12/15/16 11:28> Date of Encounter: 12/15/16 Time of Encounter: 08:30 - Assessment and plan (1) Acute on chronic congestive heart failure Current Visit: Yes Status: Acute Assessment and plan: Mr. Menjivar has a history of CAD and CHF. His last echocardiogram (11/14/2016) demonstrated EF 60%, Mild diastolic dysfunction. His CXR demonstrates pulmonary edema and bilateral pleural effusions. He presented with acute worsening of respiratory status but this may be mixed with COPD exacerbation. He also presents with bilateral LE edema 1+ pitting. BNP 397, He is taking Lasix at home but has been held since he was admitted with REBEKAH. Plan: - Hold lasix per nephrology - Continue 2L fluid restrictions - Monitor volume status - Cardiac diet - Daily standing weights and strict I&O monitoring Qualifiers: Congestive heart failure type: systolic Qualified Code(s): I50.23 - Acute on chronic systolic (congestive) heart failure (2) REBEKAH (acute kidney injury) Current Visit: Yes Status: Acute Assessment and plan: Mr. Menjivar presents with creatinine 2.12 and now 2.00. Baseline around 1.12 with GFR >60. He was on Lasix 80mg daily at the shelter. He received 80mg IV once. He has been seen by Dr Saleem and Lasix was discontinued at this time do to volume depletion. He is planned for a renal US today. Plan: - Continue to avoid nephrotoxic medications and renally dose antibiotics. - Nephrology is following. (3) Decompensated COPD with exacerbation (chronic obstructive pulmonary disease) Current Visit: No Status: Acute Assessment and plan: Diffuse wheezing, increased shortness of breath with sputum production. Diminished inspiratory and expiratory breath sounds. Recent hospitalization one month ago with COPD exacerbation, newly diagnosed lung mass and bilateral pleural effusions. PCO2 54, PaO2 68 in the setting of acute respiratory failure and metabolic alkalosis. Plan: - Continue to wean oxygen as tolerated. - Continue scheduled Duoneb - Continue Symbacort - Continue Albuterol inhaler - Start Prednisone 40mg PO daily - Start Levaquin 750 Q48hrs (4) Lung mass Current Visit: No Status: Acute Assessment and plan: Recent diagnosed Left upper lobe mass one month ago measuring 3.4cm with adenopathy. Pulmonology was involved with his last visit and recommended follow up CT of the chest 4-6 weeks for reevaluation and possible broncoscopy with ultrasound guided biopsy. He had a thorocentesis performed at that time with the fluid demonstrating reactive mesothelial cells and inflammatory cells. Pleural fluid cultures were negative for acid fast and anaerobes. Lights criteria: Plan: (5) Pleural effusion Current Visit: No Status: Acute Assessment and plan: Bilateral Pleural effusions appreciated on CXR, compared to last CXR demonstrates re-accumulation since thorocentesis. (6) Hyperkalemia Current Visit: Yes Status: Acute Assessment and plan: Potassium 5.2 in the setting of REBEKAH. Likely elevation secondary to poor renal output. Plan: - Lasix has been held, current medications reviewed. - Continue to monitor potassium with am labs. (7) DVT prophylaxis Current Visit: Yes Status: Acute Assessment and plan: subcutaneous Heparin 5000 units Q12hrs. - Subjective Interval history: Mr. Bustos has been seen and evaluated at patient bedside. He is sitting up in the chair with 7L nasal cannula oxygen. He said he did not like the BiPAP and it was uncomfortable. He feels his breathing is better compared to admission yesterday but says this all started when the oxygen at the shelter was not working. He denies any trouble with his kidneys and said he is urinating fine. He feels the fluid restrictions at the shelter were to much and they would remove his fluids. He denies any chest pain, palpitations, abdominal pain. He does feel like he has increased difficulty breathing compared to his baseline. His baseline oxygen is 3-4 Liters. - Constitutional Vitals: Temp Pulse Resp BP Pulse Ox 97.5 F L 55 15 110/67 99 12/15/16 06:54 12/15/16 06:54 12/15/16 06:54 12/15/16 06:54 12/15/16 06:54 General appearance: Present: A&O X 3, answers questions appropriately - Head Head exam: Present: atraumatic, normocephalic - Eye Eye exam: Present: PERRL, conjuntiva pink, sclera anicteric Pupils: Present: PERRL - Neck Neck exam general surgery: Present: supple, trachea midline. Absent: lymphadenopathy - Respiratory Additional comments: Diminished bronchial and vesicular breath sounds with diffuse inspiratory and expiratory wheezing. Chest symmetric correlating with respiratory effort. - Cardiovascular Cardiovascular exam: Present: RRR, +S1, +S2. Absent: diastolic murmur, gallop, rubs, systolic murmur - GI/Abdominal GI/Abdominal exam: Present: normal bowel sounds, soft, no peritoneal signs. Absent: distended, tenderness - Extremities Exam Additional comments: Bilateral 1+ pitting edema, patient has pankaj stocking on. moving all 4 extremities spontaneously. - Back Exam Back exam: Present: normal inspection - Neurological Exam Neurological exam: Present: alert, no focal deficits. Absent: facial droop, speech deficit - Psychiatric Psychiatric exam: Present: normal affect, normal mood Internal Medicine: Result - Labs CBC & Chem 7: 12/15/16 03:27 12/15/16 03:27 Labs: Short CBC 12/15/16 Range/Units 03:27 WBC 4.7 (4.3-11.1) K/mcL Hgb 9.7 L (12.9-16.9) g/dL Hct 31.6 L (37.5-50.1) % Plt Count 173 (140-400) K/mcL Neutrophils # 3.4 (1.6-8.9) K/mcL BMP 12/15/16 03:27 Sodium 143 Potassium 5.2 H Chloride 102 Carbon Dioxide 30 H BUN 41 H Creatinine 2.00 H Glucose 151 H Calcium 8.8 Cardiac Enzymes 12/14/16 Range/Units 20:30 Troponin I 0.03 (0-0.03) ng/mL - ABG Interpretation ABG results: ABG ABG pH 7.44 pH Units (7.32-7.45) 12/15/16 04:43 ABG pCO2 54 mmHg (35-45) H 12/15/16 04:43 ABG pO2 68 mmHg (85-104) L 12/15/16 04:43 ABG O2 Saturation 94 % (95-98) L 12/15/16 04:43 PT/INR, D-dimer PT 11.0 Seconds (9.4-12.1) 12/14/16 14:22 - VTE Documentation of Mechanical Device: Graduated compression elastic hosiery Consult Discharge Plan - Plan Referrals: Molly Cortez, HEAVY EQUIPMENT OPERATOR APPRENTICE [Primary Care Provider] - <Wily Henning P - Last Filed: 12/15/16 14:02> Date of Encounter: 12/15/16 - Constitutional Vitals: Temp Pulse Resp BP Pulse Ox 97.5 F L 72 22 96/72 98 12/15/16 11:37 12/15/16 11:37 12/15/16 11:37 12/15/16 11:37 12/15/16 11:37 Internal Medicine: Result - Labs CBC & Chem 7: 12/15/16 03:27 12/15/16 03:27 Labs: Short CBC 12/15/16 Range/Units 03:27 WBC 4.7 (4.3-11.1) K/mcL Hgb 9.7 L (12.9-16.9) g/dL Hct 31.6 L (37.5-50.1) % Plt Count 173 (140-400) K/mcL Neutrophils # 3.4 (1.6-8.9) K/mcL BMP 12/15/16 03:27 Sodium 143 Potassium 5.2 H Chloride 102 Carbon Dioxide 30 H BUN 41 H Creatinine 2.00 H Glucose 151 H Calcium 8.8 Cardiac Enzymes 12/14/16 Range/Units 20:30 Troponin I 0.03 (0-0.03) ng/mL - ABG Interpretation ABG results: ABG ABG pH 7.44 pH Units (7.32-7.45) 12/15/16 04:43 ABG pCO2 54 mmHg (35-45) H 12/15/16 04:43 ABG pO2 68 mmHg (85-104) L 12/15/16 04:43 ABG O2 Saturation 94 % (95-98) L 12/15/16 04:43 PT/INR, D-dimer PT 11.0 Seconds (9.4-12.1) 12/14/16 14:22 - Impressions Impressions Retroperitoneum Ultrasound 12/15/16 10:00 IMPRESSION: Areas of renal parenchymal thinning are noted bilaterally. Findings are compatible with medical renal disease. No hydronephrosis. D/ /15/2016 11:11:49 Javier Mclean MD / annika Interpreting Provider: Javier Mclean MD - Attending Attestation I examined this patient and my medical decision-making was reviewed with the TENNIS PLAYER/PA/Advanced Practice Nurse/Resident Physician. I agree with the documented findings, disposition and treatment plan as described except to the extent set forth below. complex mutiple issues. clinically dry will start on IVF possible CT chest tomorrow with IR consult Hypoalbumenic and that may be etiology for pleural effusion/leg oedema
--- NOTE | 2016-12-15 10:36 | Cardiology Consult Note ---
Date of Encounter: 12/15/16 Time of Encounter: 10:35 Assessment and Plan (1) Acute on chronic diastolic (congestive) heart failure Current Visit: Yes Status: Acute - patient appears fluid overloaded but this appears to be a multifactorial and not necessarily diastolic heart failure - bilateral +3 pitting edema, bilateral wheezing/rales - CXR reveals with interstitial pulmonary edema, bilateral pleural effusions and bibasilar atelectasis - normally takes 80mg lasix at home - TONE 11/14/16 - EF 60-65%, normal systolic function, mild diastolic dysfunction, normal RV, no valvular dysfunction, estimated RVSP 32 mmHg without pulm hypertension - UOP 2L, would recommend continued IV diuresis however per nephrology consultation should hold lasix - refer to nephrology recommendations regarding fluid status - if not improving may consider echocardiogram - strict I&Os and salt restriction (2) Coronary artery disease Current Visit: Yes Status: Acute - reports CAD s/p 3 stents placed at [place] >10 years - patient reports he occasionally takes his baby aspirin - reports no recent stress test or heart catheterization - consider outpatient ischemic evaluation in the future - denies any chest pain, palpitations, lightheadedness Qualifiers: Coronary Disease-Associated Artery/Lesion type: [place] artery [place] vs. transplanted heart: [place] heart Associated angina: angina presence unspecified Qualified Code(s): I25.10 - Atherosclerotic heart disease of [place] coronary artery without angina pectoris (3) REBEKAH (acute kidney injury) Current Visit: Yes Status: Acute - Cr 2, baseline 1.12 - nephrology consulted Discussion w patient/family: The assessment and plan as outlined above was discussed with the patient and/or family members who expressed understanding and agreement. All questions were answered. Thank you for involving us in the care of your patient. Please call with any questions. History of Present Illness Consult date: 12/15/16 Requesting physician: Cindy Rebolledo Consult reason: CHF exacerbation, CXR pulm edema History of present illness: Mr. Bustos is a 76 year old male with past medical history CAD s/p 3 stents, diastolic CHF (EF 60-65%), HTN, HLD, COPD 4L, and lung mass presents to the ED from care home for worsening shortness of breath. Reportedly he was satting in the 70-80s on 4L NC. Denies any chest pain, fever, nausea, vomiting. Reports this has been progressing over the past few weeks. He has an indwelling catheter secondary to urinary retention. Known lung mass on right side with scheduled outpatient bronchoscopy. Resident at [facility] for IV antibiotics for gram negative bacteremia secondary to E. coli diagnosed on prior admission 11/13/16. Admits to smoking cessation 1 month, prior 1 ppd. Elevated BNP 397 from previous 51. CXR reviewed and showed interstitial pulmonary edma and bilateral pleural effusions. Important CV studies: - TONE 11/14/16 - EF 60-65%, normal systolic function, mild diastolic dysfunction, normal RV, no valvular dysfunction, estimated RVSP 32 mmHg without pulm hypertension Past Med Surg Social Fam HX - Past Medical History Medical history: cancer, CHF, COPD, hypertension, myocardial infarction, other Psychiatric history: anxiety - Past Surgical History Surgical History: cataract, other - Social History Smoking Status: Current every day smoker Smokeless Tobacco Status: No Alcohol use: none Drug use: none - Family History Mother Living Status: Father Living Status: Medications and Allergies Albuterol Sulfate [Proair HFA] 2 puff IH Q4HR PRN 08/20/15 [History] Calcium Carbonate/Vitamin D3 [Calcium 600 + D Tablet] 1 each PO DAILY 08/20/15 [ History] Cholecalciferol (Vitamin D3) [Vitamin D] 1,000 unit PO DAILY 08/20/15 [History] Dutasteride [Avodart] 0.5 mg PO DAILY 08/20/15 [History] Fenofibrate 48 mg PO DAILY 08/20/15 [History] Gabapentin [Neurontin] 400 mg PO TID 08/20/15 [History] Levothyroxine [Synthroid] 100 mcg PO DAILY 08/20/15 [History] Furosemide [Lasix] 80 mg PO DAILY 11/13/16 [History] Guaifenesin [Mucinex] 600 mg PO Q12HR PRN 11/13/16 [History] Ipratropium/Albuterol Sulfate [Combivent Respimat Inhal [place]] 1 - 2 puff IH QID 11/13/16 [History] Sennosides/Docusate Sodium [Senna-Docusate Sodium Tablet] 8.6 mg PO HS 11/13/16 [History] Tamsulosin [Flomax] 0.4 mg PO HS 11/13/16 [History] HYDROcodone/Acet 5/325 mg [[place] 5-325 mg] 1 tab PO Q8H PRN 12/14/16 [History] Ipratropium/Albuterol Neb [Duoneb] 3 ml IH Q6H PRN 12/14/16 [History] Metoprolol [Lopressor] 25 mg PO BID 12/14/16 [History] Mometasone/Formoterol [Dulera 200 Mcg/5 Mcg Inhaler] 2 puff IH BID 12/14/16 [ History] Allergies No Known Allergies Allergy (Verified 11/13/16 20:07) All Systems Review: A 10-system review of systems was performed and is negative for pertinent findings except as documented above in the HPI. Physical Examination Vital Signs, Last 4 Hours Temp Pulse Resp BP Pulse Ox 12/15/16 06:54 97.5 F L 55 15 110/67 99 General: Conversant, No Apparent Distress HEENT: Atraumatic, Normocephaly, Mucus Membranes Moist Neck: Normal carotid pulses, Other (JVD 6 cm) Cardiac: Reg Rate and Rhythm, Normal S1 and S2, No Murmur Lungs: Normal Breath Sounds, Other (bilateral diffuse wheezing, bibasilar rales) Neuro: Alert and responsive, No focal deficits noted Abdomen: Soft, Non-Tender Skin: No rashes noted on visualized skin Musculoskeletal: No Chest Wall Tenderness Extremities: No Cyanosis, Other (bilateral pitting edema +3 mid thigh, stockings in place) Results 12/15/16 03:27 12/15/16 03:27 Lab Results 12/14/16 12/15/16 12/15/16 20:30 03:27 03:27 WBC 4.7 Hgb 9.7 L Hct 31.6 L Plt Count 173 Sodium 143 Potassium 5.2 H Chloride 102 Carbon Dioxide 30 H BUN 41 H Creatinine 2.00 H Glucose 151 H Calcium 8.8 Troponin I 0.03 - Imaging and Cardiology Chest Xray: report reviewed, image reviewed Echo: report reviewed - EKG Interpretation EKG results cardiology: personally reviewed, normal ECG, sinus rhythm, no diagnostic ischemia Consult Discharge Plan - Plan Referrals: Molly Cortez, HOUSE SUPERINTENDENT [Primary Care Provider] -
[2016-12-15] MEDS: Budesonide/Formoterol 80/4.5 MDI IH SCH (11:11)
[2016-12-15] MEDS: predniSONE 20 MG TABLET PO SCH (12:49)
[2016-12-15] MEDS: Levofloxacin 750 MG/150 ML 750 MG/150 ML BAG IVPB SCH (12:49)
--- NOTE | 2016-12-15 15:04 | Electrocardiograph Report ---
[place] [id number] Test Date: 2016-12-14 Pat Name: Pastor Bustos Department: 105 Room: 2NE23 Gender: M Sole Layer: : 1940 Requested By: Wily Henning Order Number: [id number] Reading MD: Molly Fay Measurements Intervals [place] Rate: 68 P: 53 MS: 200 QRS: 65 QRSD: 94 T: 62 QT: 386 QTc: 404 Interpretive Statements SINUS RHYTHM LOW QRS VOLTAGE IN PRECORDIAL LEADS [QRS DEFLECTION < 1.0 mV IN CHEST LEADS] Electronically Signed On 12-15-2016 15:02:46 EST by Molly Fay
[2016-12-15] MEDS: 0.9 % Sodium Chloride 1,000 ML IVC SCH (16:02)
[2016-12-16] MEDS: Ipratropium/Albuterol Neb 3 ML IH SCH ×4 (03:57→21:19)
[2016-12-16] MEDS: 0.9 % Sodium Chloride 1,000 ML IVC SCH ×2 (04:20→20:04)
[2016-12-16] MEDS: *HR* Heparin 5,000 UNIT/ML VIAL SQ SCH ×2 (05:40→20:09)
[2016-12-16 05:53] LABS: Hematocrit 32.1 % (37.5-50.1); Hemoglobin 9.9 g/dL (12.9-16.9); Immature Granulocytes % 0.9 % (0-4); Immature Platelets 3.4 % (1.1-6.1); Lymphocytes # 1.2 K/mcL (0.6-4.6); Mean Corpuscular HGB Conc 30.8 g/dL (31.6-35.5); Mean Corpuscular Hemoglobin 28.2 pg (28.0-33.3); Mean Corpuscular Volume 91.5 fL (83.0-100.0); Mean Platelet Volume 10.9 fL (9.4-12.4); Monocytes # 0.5 K/mcL (0.0-1.3); Monocytes % 7.1 %; Neutrophils # 5.8 K/mcL (1.6-8.9); Platelet Count 194 K/mcL (140-400); Red Blood Count 3.51 M/mcL (4.19-5.50); Red Cell Distribution Width 14.7 % (11.5-14.5)
[2016-12-16 06:13] LABS: Albumin/Globulin Ratio 0.4 (1.1-2.2); Bilirubin,Total 0.1 mg/dL (0.2-1.2); Calcium 8.5 mg/dL (8.6-10.8); Globulin 3.9 g/dL (2.4-3.5); Potassium 4.8 mEq/L (3.5-4.5); Total Protein 5.6 g/dL (6.0-8.3)
[2016-12-16 06:14] LABS: Albumin 1.7 g/dL (3.5-5.0)
[2016-12-16] MEDS: predniSONE 20 MG TABLET PO SCH (08:56)
[2016-12-16] MEDS: Gabapentin 400 MG CAPSULE PO SCH ×2 (08:56→20:05)
--- NOTE | 2016-12-16 09:17 | Nephrology Progress Note ---
Date of Encounter: 12/16/16 Time of Encounter: 09:15 - Assessment and Plan (1) REBEKAH (acute kidney injury) Current Visit: Yes Status: Acute Patient has acute kidney injury which seems related to intravascular volume depletion. Lasix is been placed on hold and he has been started on some IV fluids. I believe his pulmonary issues are primarily related to COPD as well as a recently discovered lung mass. His lower extremity edema is likely related to severe hypoalbuminemia. Urinalysis shows 100 mg/dL of protein. We will do a 24-hour urine collection to see if he has nephrotic range proteinuria. (2) Abnormal CT scan, chest Current Visit: No Status: Acute (3) Acute exacerbation of chronic obstructive pulmonary disease (COPD) Current Visit: No Status: Acute Subjective Interval history: The patient states he wants to go home today. He continues to have audible wheezing and use of accessory muscles of respiration. Renal function is slightly improved. He was placed on some IV fluids. Objective - Vital Signs Vital signs: Vital Signs Temp Pulse Resp BP Pulse Ox 12/16/16 07:18 97.3 F L 87 16 147/87 100 12/16/16 03:59 20 100 12/15/16 21:36 28 93 L 12/15/16 21:20 98.3 F 12/15/16 21:19 20 127/68 98 12/15/16 17:37 16 100 12/15/16 16:00 97.5 F L 61 15 107/64 100 Intake and Output 12/15/16 12/16/16 12/16/16 23:59 07:59 15:59 Intake Total 300 / 300 1000 / 1000 Output Total 250 / 250 900 / 900 Balance 50 / 50 100 / 100 Intake: IV Fluids 1000 / 1000 0.9 % Sodium Chloride 1, 1000 / 1000 000 ML @ 75 mls/hr IVC . [id number] CASE Rx#: [id number] Oral 300 / 300 Output: Catheter 250 / 250 900 / 900 - General Appearance Exam: Patient is alert. He is in moderate respiratory distress. Lungs bilateral wheezing and rhonchi. Heart regular rate and rhythm. Abdomen is benign. There is some mild lower extremity swelling. Compression stockings are in place. - Lab 12/16/16 05:26 12/16/16 05:26 Most recent lab results ABG pH 7.44 pH Units (7.32-7.45) 12/15/16 04:43 ABG pCO2 54 mmHg (35-45) H 12/15/16 04:43 ABG pO2 68 mmHg (85-104) L 12/15/16 04:43 ABG HCO3 36.7 mEQ/L (21-27) H 12/15/16 04:43 ABG O2 Saturation 94 % (95-98) L 12/15/16 04:43 Calcium 8.5 mg/dL (8.6-10.8) L 12/16/16 05:26 Phosphorus 5.2 mg/dL (2.3-4.7) H 12/14/16 14:22 Magnesium 2.3 mg/dL (1.6-2.6) 12/14/16 14:22 - VTE Documentation of Mechanical Device: Graduated compression elastic hosiery Consult Discharge Plan - Plan Referrals: Molly Cortez, COLLEGE SPORTS ASSISTANT [Primary Care Provider] -
--- NOTE | 2016-12-16 09:30 | Cardiology Progress Note ---
Date of Encounter: 12/16/16 Time of Encounter: 09:30 Assessment and Plan (1) Acute on chronic diastolic (congestive) heart failure Current Visit: Yes Status: Acute - peripheral edema improving, likely mutlifactorial including hypoalbuminemia - his SOB is likely more COPD than CHF given BNP is mildly elevated in 300s - TONE 11/14/16 - EF 60-65%, normal systolic function, mild diastolic dysfunction, normal RV, no valvular dysfunction, estimated RVSP 32 mmHg without pulm hypertension - refer to nephrology recommendations regarding fluid status Cardiology will sign off at this time. Thank you for involving us in his care. Please call for further questions. (2) REBEKAH (acute kidney injury) Current Visit: Yes Status: Acute - improving, Cr 1.86 (2.00) - likely due to intravascaulr volume depletion, nephrology on board - IVF given (3) Coronary artery disease Current Visit: Yes Status: Acute - reports CAD s/p 3 stents placed at [place] >10 years - patient reports he occasionally takes his baby aspirin - reports no recent stress test or heart catheterization - consider outpatient ischemic evaluation in the future - denies any chest pain, palpitations, lightheadedness Qualifiers: Coronary Disease-Associated Artery/Lesion type: [place] artery [place] vs. transplanted heart: [place] heart Associated angina: angina presence unspecified Qualified Code(s): I25.10 - Atherosclerotic heart disease of [place] coronary artery without angina pectoris Discussion w patient/family: The assessment and plan as outlined above was discussed with the patient and/or family members who expressed understanding and agreement. All questions were answered. Thank you for involving us in the care of your patient. Please call with any questions. Subjective Principal diagnosis: SOB, peripheral edema Interval history: Patient seen and examined at bedside. He is finishing his breakfast. He is adamant on going home today, as he "has all the equipment at home that we have here." Reports improvement in breathing as well as peripheral edema. Down from 7L to 4L NC. He continues to refuse BiPAP. Denies any chest pain, lightheadedness, or syncope. Urine is clear with good output. Objective Vital Signs, Last 4 Hours Temp Pulse Resp BP Pulse Ox 12/16/16 07:18 97.3 F L 87 16 147/87 100 General: Conversant, No Apparent Distress HEENT: Atraumatic, Normocephaly, Mucus Membranes Moist Neck: No JVD, Normal carotid pulses Cardiac: Reg Rate and Rhythm, Normal S1 and S2, No Murmur Lungs: Normal Breath Sounds, Other (bilateral diffuse wheezing) Neuro: Alert and responsive, No focal deficits noted Abdomen: Soft, Non-Tender Skin: No rashes noted on visualized skin Musculoskeletal: No Chest Wall Tenderness Extremities: Other (+1 edema in the lower legs, +3 pitting in thighs) Results 12/16/16 05:26 12/16/16 05:26 Lab Results 12/16/16 12/16/16 05:26 05:26 WBC 7.6 D Hgb 9.9 L Hct 32.1 L Plt Count 194 Sodium 142 Potassium 4.8 H Chloride 103 Carbon Dioxide 32 H BUN 45 H Creatinine 1.86 H Glucose 114 H Calcium 8.5 L Total Bilirubin 0.1 L AST 23 ALT 17 Alkaline Phosphatase 131 H - VTE Documentation of Mechanical Device: Graduated compression elastic hosiery Consult Discharge Plan - Plan Referrals: Molly Cortez, DIGITAL TRAFFIC COORDINATOR [Primary Care Provider] -
--- NOTE | 2016-12-16 12:03 | Palliative - Consult Note ---
Date of Encounter: 12/16/16 Time of Encounter: 12:03 - Assessment and Plan (1) Goals of care, counseling/discussion Current Visit: No Status: Acute Assessment and plan: Goals of care discussion today with Mr. Bustos and his medical POA and another family friend. His medical POA, Deyanira Meyer was in the room during the discussion today. One month ago he was seen by our service and wanted to remain a full code, but did not want to have any further medical interventions for his suspected lung malignancy. The medical POA is not a family member, but a friend of the patient. She was asking the patient to remain in the hospital for another day as she is willing to take him into her home to help him, but she does not have things set up for him yet and we could help provide home health or possibly hospice for him. She said her husbands daughter was a nurses aide and could help her at home, however she was unsure if she could support all his healthcare needs in her home. She fears he will leave her home and return to his own home and be alone most of the day. She was very fearful that should something happen to Mr. Bustos, she would be liable. We explained that as medical POA she would not been help liable in any way. As his medical POA her only duty is to make healthcare decisions for the patient when the patient cannot make them for himself. She asked the patient to stay one more day so she could figure out what is best for her and her family, and what is best for Mr. Bustos. However the patient is adamant that is leaving. He also stated that he is done with hospitals and does not want to come back. Hospice was explained to Mr. Bustos and his MPOA. She felt like hospice would be appropriate for him, but he did not seem to agree with her, or he did not fully understand. He reiterated that he wants his heart to be restarted if it stopped, including chest compressions, cardiac defibrillation, medications, and short term intubation. When asked about his CODE STATUS, he insisted that he wanted to remain a FULL CODE, but not be on long-term intubation, only short term. He would be a good candidate for hospice, as he does not appear to want anymore invasive medical therapy, but will be unable to be hospice for as long as he wants to remain a FULL CODE. Medical POA was going to discuss options with the patient and get back to us. (2) Dyspnea Current Visit: No Status: Acute Assessment and plan: on 6L NC o2 to maintain oxygenation Hx of COPD. On home O2. appears air hungry pt. wants to go home and not receive any further workup at this time. may leave AMA today. Qualifiers: Dyspnea type: dyspnea on exertion Qualified Code(s): R06.09 - Other forms of dyspnea (3) REBEKAH (acute kidney injury) Current Visit: Yes Status: Acute Assessment and plan: creatinine improving with hydration. Down to 1.86 today, 12/16/16 (4) Acute on chronic diastolic (congestive) heart failure Current Visit: Yes Status: Acute (5) COPD (chronic obstructive pulmonary disease) Current Visit: Yes Status: Acute Assessment and plan: still smoking on home O2 Qualifiers: COPD type: unspecified COPD Qualified Code(s): J44.9 - Chronic obstructive pulmonary disease, unspecified Palliative-CN HPI - Data of Consult Patient: known to practice within the last 3 years Requesting Physician: Wily Henning MD Primary Care Provider: Molly Cortez CNP - Consult Narrative History of present illness: Mr. Bustos is a 76 year old male with HTN, hyperlipidemia, CAD, Congestive heart failure, and chronic pain, and recently discovered lung mass who was brought to the ED by EMS with worsening shortness of breath. He was being treated for CHF vs COPD exacerbation. There was a recent discovery of a 3.4 cm left upper lung mass highly suspicious for malignancy. Mr. Bustos currently wants to leave the hospital AMA and is declining further interventions at this time. CC: Wily Henning MD Past Med Surg Social Fam HX - Past Medical History Medical history: cancer, CHF, COPD, hypertension, myocardial infarction, other Psychiatric history: anxiety - Past Surgical History Surgical History: cataract, other - Social History Smoking Status: Current every day smoker Smokeless Tobacco Status: No Alcohol use: none Drug use: none - Family History Mother Living Status: Father Living Status: Medications and Allergies Albuterol Sulfate [Proair HFA] 2 puff IH Q4HR PRN 08/20/15 [History] Calcium Carbonate/Vitamin D3 [Calcium 600 + D Tablet] 1 each PO DAILY 08/20/15 [ History] Cholecalciferol (Vitamin D3) [Vitamin D] 1,000 unit PO DAILY 08/20/15 [History] Dutasteride [Avodart] 0.5 mg PO DAILY 08/20/15 [History] Fenofibrate 48 mg PO DAILY 08/20/15 [History] Gabapentin [Neurontin] 400 mg PO TID 08/20/15 [History] Levothyroxine [Synthroid] 100 mcg PO DAILY 08/20/15 [History] Furosemide [Lasix] 80 mg PO DAILY 11/13/16 [History] Guaifenesin [Mucinex] 600 mg PO Q12HR PRN 11/13/16 [History] Ipratropium/Albuterol Sulfate [Combivent Respimat Inhal [place]] 1 - 2 puff IH QID 11/13/16 [History] Sennosides/Docusate Sodium [Senna-Docusate Sodium Tablet] 8.6 mg PO HS 11/13/16 [History] Tamsulosin [Flomax] 0.4 mg PO HS 11/13/16 [History] HYDROcodone/Acet 5/325 mg [[place] 5-325 mg] 1 tab PO Q8H PRN 12/14/16 [History] Ipratropium/Albuterol Neb [Duoneb] 3 ml IH Q6H PRN 12/14/16 [History] Metoprolol [Lopressor] 25 mg PO BID 12/14/16 [History] Mometasone/Formoterol [Dulera 200 Mcg/5 Mcg Inhaler] 2 puff IH BID 12/14/16 [ History] Allergies No Known Allergies Allergy (Verified 11/13/16 20:07) - Constitutional Constitutional ROS PAL: lethargy, malaise - Cardiovascular Cardiovascular ROS: edema - Respiratory Respiratory: cough, dyspnea, dyspnea on exertion, wheezing, chest congestion, no hemoptysis - Gastrointestinal Gastrointestinal: no constipation, no diarrhea - Neurological Neurological ROS: no focal weakness Palliative Care-Exam - Constitutional Vitals: Temp Pulse Resp BP Pulse Ox 97.6 F 70 21 105/64 95 12/16/16 10:56 12/16/16 10:56 12/16/16 11:10 12/16/16 10:56 12/16/16 11:10 General appearance: Present: mild distress - Head Head Exam: Present: atraumatic - Respiratory Respiratory exam: Present: decreased breath sounds, rhonchi, wheezes. Absent: CTAB - Cardiovascular Cardiovascular exam: Present: RRR - GI/Abdominal Exam GI/Abdominal exam: Present: normal bowel sounds - Catheter Type: Urethral ([place]) - Neurological Exam Neurological exam: Present: alert - Psychiatric Psychiatric exam: Present: agitated Internal Medicine - CN: Reslt - Labs CBC & Chem 7: 12/16/16 05:26 12/16/16 05:26 Labs: Short CBC 12/16/16 Range/Units 05:26 WBC 7.6 D (4.3-11.1) K/mcL Hgb 9.9 L (12.9-16.9) g/dL Hct 32.1 L (37.5-50.1) % Plt Count 194 (140-400) K/mcL Neutrophils # 5.8 (1.6-8.9) K/mcL BMP 12/16/16 05:26 Sodium 142 Potassium 4.8 H Chloride 103 Carbon Dioxide 32 H BUN 45 H Creatinine 1.86 H Glucose 114 H Calcium 8.5 L Liver Function 12/16/16 Range/Units 05:26 Total Bilirubin 0.1 L (0.2-1.2) mg/dL AST 23 (5-34) Units/L ALT 17 (0-55) Units/L Alkaline Phosphatase 131 H (38-126) Units/L Albumin 1.7 L (3.5-5.0) g/dL - ABG Interpretation ABG results: ABG ABG pH 7.44 pH Units (7.32-7.45) 12/15/16 04:43 ABG pCO2 54 mmHg (35-45) H 12/15/16 04:43 ABG pO2 68 mmHg (85-104) L 12/15/16 04:43 ABG O2 Saturation 94 % (95-98) L 12/15/16 04:43 PT/INR, D-dimer PT 11.0 Seconds (9.4-12.1) 12/14/16 14:22 Consult Discharge Plan - Plan Referrals: Molly Cortez CNP [Primary Care Provider] - Palliative Quality Palliative Quality: Screen for Code Status: Yes, Screen for Goals of Care: Yes, Screen for Pain: Yes, If Pain Regimen Started, Initiate Bowel Regimen: No, Screen for Nausea/Vomitting: Yes
--- NOTE | 2016-12-16 14:04 | Physician Discharge Referral ---
Home Health/Hosp Referral Info Transfer to: Home Health Provider in Charge Post Discharge: PCP - Diagnosis (1) Acute on chronic congestive heart failure Status: Acute (2) REBEKAH (acute kidney injury) Priority: Primary Status: Acute (3) Decompensated COPD with exacerbation (chronic obstructive pulmonary disease) Priority: Primary Status: Acute (4) Lung mass Priority: Primary Status: Acute (5) Pleural effusion Priority: Primary Status: Acute (6) Hyperkalemia Priority: Secondary Status: Acute (7) DVT prophylaxis Status: Acute - Respiratory Orders Oxygen / L per min (Patients baseline is 4L NC) Smoking Cessation: Smoking cessation has been advised. For more information, call the [place] Tobacco Quit Line at 5-085-SWTH-NOW. - Diet/Nutrition Diet/Nutrition Orders: No Added Salt (ARLEEN), Cardiac - Activity Activity Orders: Ambulate - Services Needed Following services are medically necessary services: Nursing, Home Health Aide, Physical Therapy, Occupational Therapy Other Treatments: Lasix 80mg daily held at time of discharge as patient is leaving Against Medical Advice with Acute kidney injury. He is to follow up with a primary care physician upon discharge for evaluation and continued care. Lasix to be restarted by PCP. - Transfer Medications Prescriptions: Levofloxacin [Levaquin] 750 mg PO Q48H #4 tablet PredniSONE 40 mg PO DAILY 7 Days Home Medications: Albuterol Sulfate [Albuterol Inhaler] 2 puff IH Q4HR PRN 08/20/15 [History] Calcium Carbonate/Vitamin D3 [Calcium 600 + D Tablet] 1 each PO DAILY 08/20/15 [ History] Cholecalciferol (Vitamin D3) [Vitamin D] 1,000 unit PO DAILY 08/20/15 [History] Dutasteride [Avodart] 0.5 mg PO DAILY 08/20/15 [History] Fenofibrate 48 mg PO DAILY 08/20/15 [History] Gabapentin [Neurontin] 400 mg PO TID 08/20/15 [History] Levothyroxine [Synthroid] 100 mcg PO DAILY 08/20/15 [History] Guaifenesin [Mucinex] 600 mg PO Q12HR PRN 11/13/16 [History] Ipratropium/Albuterol Sulfate [Combivent Respimat Inhal [place]] 1 - 2 puff IH QID 11/13/16 [History] Sennosides/Docusate Sodium [Senna-Docusate Sodium Tablet] 8.6 mg PO HS 11/13/16 [History] Tamsulosin [Flomax] 0.4 mg PO HS 11/13/16 [History] HYDROcodone/Acet 5/325 mg [[place] 5-325 mg] 1 tab PO Q8H PRN 12/14/16 [History] Ipratropium/Albuterol Neb [Duoneb] 3 ml IH Q6H PRN 12/14/16 [History] Metoprolol [Lopressor] 25 mg PO BID 12/14/16 [History] Mometasone/Formoterol [Dulera 200 Mcg/5 Mcg Inhaler] 2 puff IH BID 12/14/16 [ History] Levofloxacin [Levaquin] 750 mg PO Q48H #4 tablet 12/16/16 [Rx] PredniSONE 40 mg PO DAILY 7 Days 12/16/16 [Rx] Allergies/Adverse Reactions: Allergies No Known Allergies Allergy (Verified 11/13/16 20:07) Certification: Further, I certify that my clinical findings support that this patient is homebound (i.e. absences from home require considerable and taxing effort and are for medical reasons or restorationism services or infrequently or short duration when for other reasons) because: Attestation: My signature below is to certify that this patient is under my care and that I, or nurse practitioner, or a physician's evaluation assistant working with me, has a face-to -face encounter with this patient.
--- NOTE | 2016-12-16 15:19 | Internal Med Progress Note ---
<LalotimjeremyBarry Flores - Last Filed: 12/16/16 15:57> Date of Encounter: 12/16/16 Time of Encounter: 09:20 - Assessment and plan (1) Pulmonary edema Current Visit: Yes Status: Acute Assessment and plan: Suspect pulmonary edema from hypoalbuminemia with associated lung mass. Mr. Menjivar has a history of CAD and CHF. His last echocardiogram (11/14/2016) demonstrated EF 60%, Mild diastolic dysfunction. His CXR demonstrates pulmonary edema and bilateral pleural effusions. He presented with acute worsening of respiratory status but this may be mixed with COPD exacerbation. He also presents with bilateral LE edema 1+ pitting. BNP 397, He is taking Lasix at home but has been held since he was admitted with REBEKAH. Plan: - Hold lasix per nephrology - Continue 2L fluid restrictions - Monitor volume status - Cardiac diet - Daily standing weights and strict I&O monitoring Qualifiers: Qualified Code(s): J81.0 - Acute pulmonary edema (2) REBEKAH (acute kidney injury) Current Visit: Yes Status: Acute Assessment and plan: Improving with IV rehydration and holding Lasix. Mr. Menjivar presents with creatinine 2.12, Baseline around 1.12 with GFR >60. He was on Lasix 80mg daily at the residential. He received 80mg IV once. He has been seen by Dr Saleem and Lasix was discontinued do to volume depletion. Contributing factors: Lasix and hypoalbuminemia Retroperitoneal US demonstrated bilateral areas of renal parenchymal thinning compatible with medical renal disease. No hydronephrosis. Plan: - Continue to avoid nephrotoxic medications and renally dose antibiotics. - Nephrology is following. - Continue gentle rehydration. (3) Decompensated COPD with exacerbation (chronic obstructive pulmonary disease) Current Visit: No Status: Acute Assessment and plan: Diffuse wheezing, increased shortness of breath with sputum production. Diminished inspiratory and expiratory breath sounds. Recent hospitalization one month ago with COPD exacerbation, newly diagnosed lung mass and bilateral pleural effusions. PCO2 54, PaO2 68 in the setting of acute respiratory failure and metabolic alkalosis. Plan: - Continue to wean oxygen as tolerated. - Continue scheduled Duoneb - Continue Symbacort - Continue Albuterol inhaler - Continue Prednisone 40mg PO daily - Continue Levaquin 750 Q48hrs (4) Lung mass Current Visit: No Status: Acute Assessment and plan: Recent diagnosed Left upper lobe mass one month ago measuring 3.4cm with adenopathy. Pulmonology was involved with his last visit and recommended follow up CT of the chest 4-6 weeks for reevaluation and possible broncoscopy with ultrasound guided biopsy. He had a thorocentesis performed at that time with the fluid demonstrating reactive mesothelial cells and inflammatory cells. Pleural fluid cultures were negative for acid fast and anaerobes. Concerns and recommendations regrading recent lung masses were discussed with Mr. Bustos. He declined any intervention or diagnostics regarding these lung masses because he said he would not do anything about it any ways and he does not want to know. Risk of not intervening have been discussed with Mr. Bustos who demonstrated understanding. Chest X-Ray 12/14/16 13:39 IMPRESSION: CHF with interstitial pulmonary edema, bilateral pleural effusions and bibasilar atelectasis. Mild progression from the comparison study. Chest CT 12/16/16 08:31 IMPRESSION: 1. Increased large bilateral pleural effusions. There is increased aeration of the bilateral lower lobes with persistent passive atelectasis bilaterally. 2. New patchy consolidative and groundglass opacities in the posterior segment of the right upper lobe, suspicious for pneumonia. 3. Increased size of subpleural nodular opacity in the anterior segment of the right upper lobe and new slightly more inferior nodular opacity also in the anterior segment. The increased size favors an infectious or inflammatory process given the interval between studies, although the larger previously seen opacity could represent neoplasia. 4. Unchanged 4.3 cm x 3.9 cm mass left upper lobe remains suspicious for primary bronchogenic carcinoma. Infection is an additional consideration. Recommend follow-up per the Fleischner Society recommendations for solid nodules as below. 5. At least moderate centrilobular and mild paraseptal emphysema. 6. Unchanged right paratracheal and subcarinal lymphadenopathy, potentially reactive or metastatic. 7. Severe coronary atherosclerotic calcifications. 8. Mildly to moderately dilated pulmonary arteries, a finding that can be seen with pulmonary hypertension. Plan: - Recommend Biopsy for evaluation of lung mass by IR, Patient has declined intervention - Recommend Theraputic thorocentesis and patient has decided to consider it. (5) Pleural effusion Current Visit: No Status: Acute Assessment and plan: Large Bilateral Pleural effusions appreciated on CXR and CT of the chest 12/16 as mentioned above, compared to last CXR demonstrates re-accumulation since thorocentesis. Likely secondary to hypoalbuminemia and lung masses. This has been discussed with Mr. Bustos who refused intervention. Plan: - Mr. Bustos may benefit from therapeutic thorocentesis to reduce pulmonary restriction. (6) Hyperkalemia Current Visit: Yes Status: Acute Assessment and plan: Resolved with improving renal function. (7) DVT prophylaxis Current Visit: Yes Status: Acute Assessment and plan: subcutaneous Heparin 5000 units Q12hrs. - Subjective Interval history: Mr. Bustos has been seen and evaluated at patient bedside. He is sitting up in bed this morning says he feels great and is going home. He is tolerating PO intake and voiding. He says that he called friends and they will take him home when the arrive. He does not wish to have further treatment. I discussed that he still requires increased oxygen to maintain acceptable oxygenation, he has acute kidney injury and demonstrates fluid on his lungs that needs to be evaluated and treated further. He also has a lung mass that should be biopsied as this is likely contributing to his symptoms. He says he is aware of his lung mass and does not want to know if it is cancer or anything else because he does not want to have it treated. He also feels that he is well enough to go home despite my recommendations. - Constitutional Vitals: Temp Pulse Resp BP Pulse Ox 97.6 F 70 21 105/64 95 12/16/16 10:56 12/16/16 10:56 12/16/16 11:10 12/16/16 10:56 12/16/16 11:10 General appearance: Present: A&O X 3, answers questions appropriately - Head Head exam: Present: atraumatic, normocephalic - Eye Eye exam: Present: PERRL, conjuntiva pink, sclera anicteric Pupils: Present: PERRL - ENT ENT exam: Present: mucous membranes moist Additional comments: Poor dentition. - Neck Neck exam general surgery: Present: supple, trachea midline. Absent: lymphadenopathy - Respiratory Additional comments: Diffuse diminished inspiratory and expiratory breath sounds with diffuse wheezing and crackles. - Cardiovascular Cardiovascular exam: Present: RRR, +S1, +S2. Absent: diastolic murmur, gallop, rubs, systolic murmur - GI/Abdominal GI/Abdominal exam: Present: normal bowel sounds, soft, no peritoneal signs. Absent: distended, tenderness - Extremities Exam Extremities exam: Present: pedal edema, warm, radial pulses palpable and symetrical. Absent: calf tenderness, cyanotic Additional comments: Bilateral 1+ pitting edema, patient has pankaj stocking on. moving all 4 extremities spontaneously. - Neurological Exam Neurological exam: Present: alert, oriented X3, no focal deficits. Absent: pronater drift, facial droop, speech deficit - Psychiatric Psychiatric exam: Present: normal affect, normal mood - Skin Skin exam: Present: warm Internal Medicine: Result - Labs CBC & Chem 7: 12/16/16 05:26 12/16/16 05:26 Labs: Short CBC 12/16/16 Range/Units 05:26 WBC 7.6 D (4.3-11.1) K/mcL Hgb 9.9 L (12.9-16.9) g/dL Hct 32.1 L (37.5-50.1) % Plt Count 194 (140-400) K/mcL Neutrophils # 5.8 (1.6-8.9) K/mcL BMP 12/16/16 05:26 Sodium 142 Potassium 4.8 H Chloride 103 Carbon Dioxide 32 H BUN 45 H Creatinine 1.86 H Glucose 114 H Calcium 8.5 L Liver Function 12/16/16 Range/Units 05:26 Total Bilirubin 0.1 L (0.2-1.2) mg/dL AST 23 (5-34) Units/L ALT 17 (0-55) Units/L Alkaline Phosphatase 131 H (38-126) Units/L Albumin 1.7 L (3.5-5.0) g/dL - ABG Interpretation ABG results: ABG ABG pH 7.44 pH Units (7.32-7.45) 12/15/16 04:43 ABG pCO2 54 mmHg (35-45) H 12/15/16 04:43 ABG pO2 68 mmHg (85-104) L 12/15/16 04:43 ABG O2 Saturation 94 % (95-98) L 12/15/16 04:43 PT/INR, D-dimer PT 11.0 Seconds (9.4-12.1) 12/14/16 14:22 - Impressions Impressions Chest CT 12/16/16 08:31 IMPRESSION: 1. Increased large bilateral pleural effusions. There is increased aeration of the bilateral lower lobes with persistent passive atelectasis bilaterally. 2. New patchy consolidative and groundglass opacities in the posterior segment of the right upper lobe, suspicious for pneumonia. 3. Increased size of subpleural nodular opacity in the anterior segment of the right upper lobe and new slightly more inferior nodular opacity also in the anterior segment. The increased size favors an infectious or inflammatory process given the interval between studies, although the larger previously seen opacity could represent neoplasia. 4. Unchanged 4.3 cm x 3.9 cm mass left upper lobe remains suspicious for primary bronchogenic carcinoma. Infection is an additional consideration. Recommend follow-up per the Fleischner Society recommendations for solid nodules as below. 5. At least moderate centrilobular and mild paraseptal emphysema. 6. Unchanged right paratracheal and subcarinal lymphadenopathy, potentially reactive or metastatic. 7. Severe coronary atherosclerotic calcifications. 8. Mildly to moderately dilated pulmonary arteries, a finding that can be seen with pulmonary hypertension. RECOMMENDATIONS: Fleischner Society guidelines for follow-up and management of pulmonary nodules: Nodule size greater than 8 mm In low-risk and high-risk patients follow-up CT at around 3, 9, and 24 months, contrast-enhanced CT, PET, and/or biopsy. Low risk patients include individuals with minimal or absent history of smoking and other known risk factors. High risk patients include individuals with a history of smoking or other known risk factors. Radiology 2005; [id number]:[id number] D/ / Ramin Hoff MD / Ramin Hoff MD Interpreting Provider: Ramin Hoff MD - VTE Documentation of Mechanical Device: Graduated compression elastic hosiery Consult Discharge Plan - Plan Referrals: Molly Cortez, RIAZ [Primary Care Provider] - Prescriptions: Levofloxacin [Levaquin] 750 mg PO Q48H #4 tablet PredniSONE 40 mg PO DAILY 7 Days <Wily Henning - Last Filed: 12/16/16 16:42> Date of Encounter: 12/16/16 - Constitutional Vitals: Temp Pulse Resp BP Pulse Ox 97.3 F L 53 16 120/66 94 L 12/16/16 16:22 12/16/16 16:22 12/16/16 16:22 12/16/16 16:22 12/16/16 16:22 Internal Medicine: Result - Labs CBC & Chem 7: 12/16/16 05:26 12/16/16 05:26 Labs: Short CBC 12/16/16 Range/Units 05:26 WBC 7.6 D (4.3-11.1) K/mcL Hgb 9.9 L (12.9-16.9) g/dL Hct 32.1 L (37.5-50.1) % Plt Count 194 (140-400) K/mcL Neutrophils # 5.8 (1.6-8.9) K/mcL BMP 12/16/16 05:26 Sodium 142 Potassium 4.8 H Chloride 103 Carbon Dioxide 32 H BUN 45 H Creatinine 1.86 H Glucose 114 H Calcium 8.5 L Liver Function 12/16/16 Range/Units 05:26 Total Bilirubin 0.1 L (0.2-1.2) mg/dL AST 23 (5-34) Units/L ALT 17 (0-55) Units/L Alkaline Phosphatase 131 H (38-126) Units/L Albumin 1.7 L (3.5-5.0) g/dL - ABG Interpretation ABG results: ABG ABG pH 7.44 pH Units (7.32-7.45) 12/15/16 04:43 ABG pCO2 54 mmHg (35-45) H 12/15/16 04:43 ABG pO2 68 mmHg (85-104) L 12/15/16 04:43 ABG O2 Saturation 94 % (95-98) L 12/15/16 04:43 PT/INR, D-dimer PT 11.0 Seconds (9.4-12.1) 12/14/16 14:22 - Impressions Impressions Chest CT 12/16/16 08:31 IMPRESSION: 1. Increased large bilateral pleural effusions. There is increased aeration of the bilateral lower lobes with persistent passive atelectasis bilaterally. 2. New patchy consolidative and groundglass opacities in the posterior segment of the right upper lobe, suspicious for pneumonia. 3. Increased size of subpleural nodular opacity in the anterior segment of the right upper lobe and new slightly more inferior nodular opacity also in the anterior segment. The increased size favors an infectious or inflammatory process given the interval between studies, although the larger previously seen opacity could represent neoplasia. 4. Unchanged 4.3 cm x 3.9 cm mass left upper lobe remains suspicious for primary bronchogenic carcinoma. Infection is an additional consideration. Recommend follow-up per the Fleischner Society recommendations for solid nodules as below. 5. At least moderate centrilobular and mild paraseptal emphysema. 6. Unchanged right paratracheal and subcarinal lymphadenopathy, potentially reactive or metastatic. 7. Severe coronary atherosclerotic calcifications. 8. Mildly to moderately dilated pulmonary arteries, a finding that can be seen with pulmonary hypertension. RECOMMENDATIONS: Fleischner Society guidelines for follow-up and management of pulmonary nodules: Nodule size greater than 8 mm In low-risk and high-risk patients follow-up CT at around 3, 9, and 24 months, contrast-enhanced CT, PET, and/or biopsy. Low risk patients include individuals with minimal or absent history of smoking and other known risk factors. High risk patients include individuals with a history of smoking or other known risk factors. Radiology 2005; [id number]:[id number] D/ / Ramin Hoff MD / Ramin Hoff MD Interpreting Provider: Ramin Hoff MD - Attending Attestation I examined this patient and my medical decision-making was reviewed with the HARVEST SUPERVISOR/PA/Advanced Practice Nurse/Resident Physician. I agree with the documented findings, disposition and treatment plan as described except to the extent set forth below.
[2016-12-17] MEDS: Gabapentin 400 MG CAPSULE PO SCH ×4 (00:17→20:37)
[2016-12-17 03:51] LABS: Basophils % 0.1 %; Eosinophils % 0.1 %; Hemoglobin 10.2 g/dL (12.9-16.9); Immature Granulocytes % 0.6 % (0-4); Immature Platelets 3.4 % (1.1-6.1); Lymphocytes # 1.9 K/mcL (0.6-4.6); Lymphocytes % 21.5 %; Mean Corpuscular HGB Conc 31.9 g/dL (31.6-35.5); Mean Corpuscular Hemoglobin 28.3 pg (28.0-33.3); Mean Corpuscular Volume 88.9 fL (83.0-100.0); Mean Platelet Volume 10.7 fL (9.4-12.4); Monocytes # 0.9 K/mcL (0.0-1.3); Monocytes % 10.5 %; Neutrophils # 5.8 K/mcL (1.6-8.9); Platelet Count 185 K/mcL (140-400); Red Cell Distribution Width 14.6 % (11.5-14.5); Segmented Neutrophils % 67.2 %
[2016-12-17] MEDS: Ipratropium/Albuterol Neb 3 ML IH SCH ×4 (03:51→22:40)
[2016-12-17 04:03] LABS: Albumin/Globulin Ratio 0.4 (1.1-2.2); Bilirubin,Total 0.1 mg/dL (0.2-1.2); Calcium 8.2 mg/dL (8.6-10.8); Globulin 3.7 g/dL (2.4-3.5); Potassium 4.1 mEq/L (3.5-4.5); Total Protein 5.2 g/dL (6.0-8.3)
[2016-12-17 04:04] LABS: Albumin 1.5 g/dL (3.5-5.0)
[2016-12-17] MEDS: *HR* Heparin 5,000 UNIT/ML VIAL SQ SCH ×2 (06:09→20:38)
--- NOTE | 2016-12-17 09:33 | Nephrology Progress Note ---
Date of Encounter: 12/17/16 Time of Encounter: 08:45 - Assessment and Plan (1) REBEKAH (acute kidney injury) Current Visit: Yes Status: Acute REBEKAH most likely related to intravascular volume depletion, renal fct improving with IV fluids. No 24 hour urine available as yet to determine if proteinuria in nephrotic range. Will follow in office if discharged if patient in agreement. Subjective Principal diagnosis: SOB, peripheral edema Interval history: Increased respiratory effort with little exertion, audible harsh breath sounds and wheeze. States this is his normal. States wants to go home. Objective - Vital Signs Vital signs: Vital Signs Temp Pulse Resp BP Pulse Ox 12/17/16 06:50 97.7 F 82 18 120/84 88 L 12/17/16 05:04 97.9 F 81 18 126/79 92 L 12/17/16 03:51 18 94 L 12/17/16 00:01 97.6 F 60 12 115/59 100 12/16/16 21:19 18 90 L 12/16/16 19:31 97.8 F 80 24 129/48 90 L 12/16/16 16:22 97.3 F L 53 16 120/66 94 L 12/16/16 16:01 18 97 12/16/16 11:10 21 95 12/16/16 10:56 97.6 F 70 18 105/64 97 Intake and Output 12/16/16 12/17/16 12/17/16 23:59 07:59 15:59 Intake Total 1480 / 1480 0 / 0 Output Total 0 / 0 425 / 425 Balance 1480 / 1480 -425 / -425 Intake: IV Fluids 1000 / 1000 0.9 % Sodium Chloride 1, 1000 / 1000 000 ML @ 75 mls/hr IVC . [id number] [facility] Rx#: [id number] Oral 480 / 480 0 / 0 Output: Catheter 0 / 0 425 / 425 Other: Meal Dinner Percent of Meal Consumed 100% - General Appearance General appearance: Present: well-developed, well-nourished, appears started age EENT: Present: mucous membranes moist Neck: Present: no JVD Additional Comments: harsh breath sounds, wheezes throughout Cardiology: Present: regular rate, regular rhythm Additional Comments: mild LE edema Gastrointestinal: Present: normoactive bowel sounds, no tenderness Integumentary: Present: warm and dry Neurologic: Present: alert and oriented x3 Psychiatric: Present: mood/affect appropriate, cooperative - Lab 12/17/16 03:45 12/17/16 03:45 Most recent lab results ABG pH 7.44 pH Units (7.32-7.45) 12/15/16 04:43 ABG pCO2 54 mmHg (35-45) H 12/15/16 04:43 ABG pO2 68 mmHg (85-104) L 12/15/16 04:43 ABG HCO3 36.7 mEQ/L (21-27) H 12/15/16 04:43 ABG O2 Saturation 94 % (95-98) L 12/15/16 04:43 Calcium 8.2 mg/dL (8.6-10.8) L 12/17/16 03:45 Phosphorus 5.2 mg/dL (2.3-4.7) H 12/14/16 14:22 Magnesium 2.3 mg/dL (1.6-2.6) 12/14/16 14:22 - VTE Documentation of Mechanical Device: Graduated compression elastic hosiery Consult Discharge Plan - Plan Referrals: Molly Cortez, MUSSEL FARMER [Primary Care Provider] - Prescriptions: Levofloxacin [Levaquin] 750 mg PO Q48H #4 tablet PredniSONE 40 mg PO DAILY 7 Days
[2016-12-17] MEDS: predniSONE 20 MG TABLET PO SCH (09:37)
[2016-12-17] MEDS: 0.9 % Sodium Chloride 1,000 ML IVC SCH (09:37)
--- NOTE | 2016-12-17 10:07 | Palliative Progress Note ---
<AnandaElia Giuliano - Last Filed: 12/17/16 10:52> Date of Encounter: 12/17/16 Time of Encounter: 10:05 - Assessment and plan (1) Goals of care, counseling/discussion Current Visit: No Status: Acute Assessment and plan: Mr. Bustos stayed one more night. He states he still wants to leave today. His O2 saturations are upper 80's on 6L O2. Yesterday there was a discussion with his medical POA, Mr. Bustos, Dr. Chen and myself. We spoke at length about the options Mr. Bustos had including his CODE STATUS, hospice, ECF, home health. This a.m. I asked him if he understood everything we spoke about yesterday and he said "not really". So I reiterated all of his options. He then reiterated that he would like to go home, or to his Medical POA's home and receive home health only and return to the hospital if/when his condition worsens. He definitively declined wanting to return to an ECF. He definitively declined hospice at this time. He reiterated that he wants to maintain his FULL CODE status. (2) Dyspnea Current Visit: No Status: Acute Assessment and plan: continued dyspnea while on 6L O2 Qualifiers: Dyspnea type: dyspnea on exertion Qualified Code(s): R06.09 - Other forms of dyspnea (3) REBEKAH (acute kidney injury) Current Visit: Yes Status: Acute Assessment and plan: Improving. Scr trending down. 1.46 today. GFR trending up. 47 today (4) Acute on chronic diastolic (congestive) heart failure Current Visit: Yes Status: Acute Assessment and plan: treatment per primary team. (5) COPD (chronic obstructive pulmonary disease) Current Visit: Yes Status: Acute Assessment and plan: Severe COPD treatment per primary team Qualifiers: COPD type: unspecified COPD Qualified Code(s): J44.9 - Chronic obstructive pulmonary disease, unspecified - Time Spent With Patient Total time spent is greater than 50% in coordination of care (as documented) at patient's floor/unit and/or counseling patient: - Subjective Interval history: Patient seen and examined. Sitting up in bed with continued difficulty breathing. States he "feels pretty good". Hospitalist team not ready to discharge patient at this time d/t disease status. Patient states he will sign himself out AMA today. Denies any pain/nausea/diarrhea/constipation at this time. - Constitutional Vitals: Abnormal lab results RBC 3.60 M/mcL (4.19-5.50) L 12/17/16 03:45 Hgb 10.2 g/dL (12.9-16.9) L 12/17/16 03:45 Hct 32.0 % (37.5-50.1) L 12/17/16 03:45 RDW 14.6 % (11.5-14.5) H 12/17/16 03:45 ABG pCO2 54 mmHg (35-45) H 12/15/16 04:43 ABG pO2 68 mmHg (85-104) L 12/15/16 04:43 ABG HCO3 36.7 mEQ/L (21-27) H 12/15/16 04:43 ABG Total CO2 38.4 mEq/L (20-26) H 12/15/16 04:43 ABG O2 Saturation 94 % (95-98) L 12/15/16 04:43 ABG Base Excess 11.1 mEq/L (-2.0 to 3.0) H 12/15/16 04:43 BUN 39 mg/dL (8-26) H 12/17/16 03:45 Creatinine 1.46 mg/dL (0.72-1.25) H 12/17/16 03:45 Est GFR ( Amer) 57 (> 60) L 12/17/16 03:45 Est GFR (Non-Af Amer) 47 (> 60) L 12/17/16 03:45 BUN/Creatinine Ratio 27 (6-26) H 12/17/16 03:45 Glucose 105 mg/dL (70-99) H 12/17/16 03:45 Calculated Osmolality 302 (280-300) H 12/17/16 03:45 Calcium 8.2 mg/dL (8.6-10.8) L 12/17/16 03:45 Phosphorus 5.2 mg/dL (2.3-4.7) H 12/14/16 14:22 Total Bilirubin 0.1 mg/dL (0.2-1.2) L 12/17/16 03:45 B-Natriuretic Peptide 397 pg/mL (0-100) H 12/14/16 14:22 Serum Total Protein 5.2 g/dL (6.0-8.3) L 12/17/16 03:45 Albumin 1.5 g/dL (3.5-5.0) L 12/17/16 03:45 Globulin 3.7 g/dL (2.4-3.5) H 12/17/16 03:45 Albumin/Globulin Ratio 0.4 (1.1-2.2) L 12/17/16 03:45 Urine Clarity Cloudy (Clear) A 12/14/16 14:43 Urine Protein 100 mg/dL (Neg-Trace) H 12/14/16 14:43 Urine Blood Moderate (Negative) H 12/14/16 14:43 Ur Leukocyte Esterase Small (Negative) H 12/14/16 14:43 Urine Microscopic RBC 30-50 per hpf (0-3) H 12/14/16 14:43 Urine Microscopic WBC 50-100 per hpf (0-3) H 12/14/16 14:43 Ur Squamous Epith Cells Many per lpf (None-Few) H 12/14/16 14:43 Urine Yeast Few per hpf (None Seen) H 12/14/16 14:43 Ur Culture Indicated? YES (NO) A 12/14/16 14:43 General appearance: Present: disheveled, mild distress, thin - Respiratory Respiratory exam: Present: decreased breath sounds, respiratory distress, rhonchi, wheezes - Cardiovascular Cardiovascular exam: Present: RRR - GI/Abdominal GI/Abdominal exam: Present: normal bowel sounds - Neurological Exam Neurological exam: Present: alert, oriented X3 - Skin Skin exam: Present: dry, warm Palliative Quality Palliative Quality: Screen for Code Status: Yes, Screen for Goals of Care: Yes, Screen for Pain: Yes, If Pain Regimen Started, Initiate Bowel Regimen: No, Screen for Nausea/Vomitting: Yes - Labs CBC & Chem 7: 12/17/16 03:45 12/17/16 03:45 Labs: Laboratory Results - last 24 hr 12/17/16 12/17/16 03:45 03:45 WBC 8.7 RBC 3.60 L Hgb 10.2 L Hct 32.0 L MCV 88.9 MCH 28.3 MCHC 31.9 RDW 14.6 H Plt Count 185 MPV 10.7 Immature Gran % 0.6 Seg Neutrophils % 67.2 Lymphocytes % 21.5 Monocytes % 10.5 Eosinophils % 0.1 Basophils % 0.1 Neutrophils # 5.8 Lymphocytes # 1.9 Monocytes # 0.9 Eosinophils # 0.0 Basophils # 0.0 Immature Plt Fraction 3.4 Sodium 141 Potassium 4.1 Chloride 107 Carbon Dioxide 28 BUN 39 H Creatinine 1.46 H Est GFR ( Amer) 57 L Est GFR (Non-Af Amer) 47 L BUN/Creatinine Ratio 27 H Glucose 105 H Calculated Osmolality 302 H Calcium 8.2 L Total Bilirubin 0.1 L AST 15 ALT 12 Alkaline Phosphatase 118 Serum Total Protein 5.2 L Albumin 1.5 L Globulin 3.7 H Albumin/Globulin Ratio 0.4 L - Impressions Impressions Chest CT 12/16/16 08:31 IMPRESSION: 1. Increased large bilateral pleural effusions. There is increased aeration of the bilateral lower lobes with persistent passive atelectasis bilaterally. 2. New patchy consolidative and groundglass opacities in the posterior segment of the right upper lobe, suspicious for pneumonia. 3. Increased size of subpleural nodular opacity in the anterior segment of the right upper lobe and new slightly more inferior nodular opacity also in the anterior segment. The increased size favors an infectious or inflammatory process given the interval between studies, although the larger previously seen opacity could represent neoplasia. 4. Unchanged 4.3 cm x 3.9 cm mass left upper lobe remains suspicious for primary bronchogenic carcinoma. Infection is an additional consideration. Recommend follow-up per the Fleischner Society recommendations for solid nodules as below. 5. At least moderate centrilobular and mild paraseptal emphysema. 6. Unchanged right paratracheal and subcarinal lymphadenopathy, potentially reactive or metastatic. 7. Severe coronary atherosclerotic calcifications. 8. Mildly to moderately dilated pulmonary arteries, a finding that can be seen with pulmonary hypertension. RECOMMENDATIONS: Fleischner Society guidelines for follow-up and management of pulmonary nodules: Nodule size greater than 8 mm In low-risk and high-risk patients follow-up CT at around 3, 9, and 24 months, contrast-enhanced CT, PET, and/or biopsy. Low risk patients include individuals with minimal or absent history of smoking and other known risk factors. High risk patients include individuals with a history of smoking or other known risk factors. Radiology 2005; [id number] D/ / Ramin Hoff MD / Ramin Hoff MD Interpreting Provider: Ramin Hoff MD - ABG Interpretation ABG results: ABG ABG pH 7.44 pH Units (7.32-7.45) 12/15/16 04:43 ABG pCO2 54 mmHg (35-45) H 12/15/16 04:43 ABG pO2 68 mmHg (85-104) L 12/15/16 04:43 ABG O2 Saturation 94 % (95-98) L 12/15/16 04:43 PT/INR, D-dimer PT 11.0 Seconds (9.4-12.1) 12/14/16 14:22 Consult Discharge Plan - Plan Referrals: Molly Cortez, RIAZ [Primary Care Provider] - Prescriptions: Levofloxacin [Levaquin] 750 mg PO Q48H #4 tablet PredniSONE 40 mg PO DAILY 7 Days <Jonh Chen - Last Filed: 12/17/16 11:17> Date of Encounter: 12/17/16 - Time Spent With Patient Total time spent is greater than 50% in coordination of care (as documented) at patient's floor/unit and/or counseling patient: - Constitutional Vitals: Abnormal lab results RBC 3.60 M/mcL (4.19-5.50) L 12/17/16 03:45 Hgb 10.2 g/dL (12.9-16.9) L 12/17/16 03:45 Hct 32.0 % (37.5-50.1) L 12/17/16 03:45 RDW 14.6 % (11.5-14.5) H 12/17/16 03:45 ABG pCO2 54 mmHg (35-45) H 12/15/16 04:43 ABG pO2 68 mmHg (85-104) L 12/15/16 04:43 ABG HCO3 36.7 mEQ/L (21-27) H 12/15/16 04:43 ABG Total CO2 38.4 mEq/L (20-26) H 12/15/16 04:43 ABG O2 Saturation 94 % (95-98) L 12/15/16 04:43 ABG Base Excess 11.1 mEq/L (-2.0 to 3.0) H 12/15/16 04:43 BUN 39 mg/dL (8-26) H 12/17/16 03:45 Creatinine 1.46 mg/dL (0.72-1.25) H 12/17/16 03:45 Est GFR ( Amer) 57 (> 60) L 12/17/16 03:45 Est GFR (Non-Af Amer) 47 (> 60) L 12/17/16 03:45 BUN/Creatinine Ratio 27 (6-26) H 12/17/16 03:45 Glucose 105 mg/dL (70-99) H 12/17/16 03:45 Calculated Osmolality 302 (280-300) H 12/17/16 03:45 Calcium 8.2 mg/dL (8.6-10.8) L 12/17/16 03:45 Phosphorus 5.2 mg/dL (2.3-4.7) H 12/14/16 14:22 Total Bilirubin 0.1 mg/dL (0.2-1.2) L 12/17/16 03:45 B-Natriuretic Peptide 397 pg/mL (0-100) H 12/14/16 14:22 Serum Total Protein 5.2 g/dL (6.0-8.3) L 12/17/16 03:45 Albumin 1.5 g/dL (3.5-5.0) L 12/17/16 03:45 Globulin 3.7 g/dL (2.4-3.5) H 12/17/16 03:45 Albumin/Globulin Ratio 0.4 (1.1-2.2) L 12/17/16 03:45 Urine Clarity Cloudy (Clear) A 12/14/16 14:43 Urine Protein 100 mg/dL (Neg-Trace) H 12/14/16 14:43 Urine Blood Moderate (Negative) H 12/14/16 14:43 Ur Leukocyte Esterase Small (Negative) H 12/14/16 14:43 Urine Microscopic RBC 30-50 per hpf (0-3) H 12/14/16 14:43 Urine Microscopic WBC 50-100 per hpf (0-3) H 12/14/16 14:43 Ur Squamous Epith Cells Many per lpf (None-Few) H 12/14/16 14:43 Urine Yeast Few per hpf (None Seen) H 12/14/16 14:43 Ur Culture Indicated? YES (NO) A 12/14/16 14:43 - Attending Attestation I examined this patient and my medical decision-making was reviewed with the YARD BRAKEMAN/PA/Advanced Practice Nurse/Resident Physician. I agree with the documented findings, disposition and treatment plan as described except to the extent set forth below. - Labs CBC & Chem 7: 12/17/16 03:45 12/17/16 03:45 Labs: Laboratory Results - last 24 hr 12/17/16 12/17/16 03:45 03:45 WBC 8.7 RBC 3.60 L Hgb 10.2 L Hct 32.0 L MCV 88.9 MCH 28.3 MCHC 31.9 RDW 14.6 H Plt Count 185 MPV 10.7 Immature Gran % 0.6 Seg Neutrophils % 67.2 Lymphocytes % 21.5 Monocytes % 10.5 Eosinophils % 0.1 Basophils % 0.1 Neutrophils # 5.8 Lymphocytes # 1.9 Monocytes # 0.9 Eosinophils # 0.0 Basophils # 0.0 Immature Plt Fraction 3.4 Sodium 141 Potassium 4.1 Chloride 107 Carbon Dioxide 28 BUN 39 H Creatinine 1.46 H Est GFR ( Amer) 57 L Est GFR (Non-Af Amer) 47 L BUN/Creatinine Ratio 27 H Glucose 105 H Calculated Osmolality 302 H Calcium 8.2 L Total Bilirubin 0.1 L AST 15 ALT 12 Alkaline Phosphatase 118 Serum Total Protein 5.2 L Albumin 1.5 L Globulin 3.7 H Albumin/Globulin Ratio 0.4 L - Impressions Impressions Chest CT 12/16/16 08:31
[2016-12-17] MEDS: Levofloxacin 750 MG/150 ML 750 MG/150 ML BAG IVPB SCH (12:13)
[2016-12-17 13:40] LABS: Protein/Creatinine Ratio,Urine 13.95 mg/mg (0-0.20)
--- NOTE | 2016-12-17 14:19 | Internal Med Progress Note ---
Date of Encounter: 12/17/16 Time of Encounter: 14:17 - Assessment and plan (1) Pleural effusion Current Visit: No Status: Acute Assessment and plan: Large Bilateral Pleural effusions appreciated on CXR and CT of the chest 12/16 as mentioned above, compared to last CXR demonstrates re-accumulation since thorocentesis. Likely secondary to hypoalbuminemia and lung masses. This has been discussed with Mr. Bustos who refused intervention. Plan: - Mr. Bustos may benefit from therapeutic thorocentesis to reduce pulmonary restriction. 12/17/2016 Persistent SOB. Unable to breathe. Discussed with patient and he agreed for aspiration. Pleural fluid aspiration was done Resident and was supervised by me. ( please see note ) post aspiration patient feels better. (2) Lung mass Current Visit: No Status: Acute Assessment and plan: Recent diagnosed Left upper lobe mass one month ago measuring 3.4cm with adenopathy. Pulmonology was involved with his last visit and recommended follow up CT of the chest 4-6 weeks for reevaluation and possible broncoscopy with ultrasound guided biopsy. He had a thorocentesis performed at that time with the fluid demonstrating reactive mesothelial cells and inflammatory cells. Pleural fluid cultures were negative for acid fast and anaerobes. Concerns and recommendations regrading recent lung masses were discussed with Mr. Bustos. He declined any intervention or diagnostics regarding these lung masses because he said he would not do anything about it any ways and he does not want to know. Risk of not intervening have been discussed with Mr. Bustos who demonstrated understanding. Chest X-Ray 12/14/16 13:39 IMPRESSION: CHF with interstitial pulmonary edema, bilateral pleural effusions and bibasilar atelectasis. Mild progression from the comparison study. Chest CT 12/16/16 08:31 IMPRESSION: 1. Increased large bilateral pleural effusions. There is increased aeration of the bilateral lower lobes with persistent passive atelectasis bilaterally. 2. New patchy consolidative and groundglass opacities in the posterior segment of the right upper lobe, suspicious for pneumonia. 3. Increased size of subpleural nodular opacity in the anterior segment of the right upper lobe and new slightly more inferior nodular opacity also in the anterior segment. The increased size favors an infectious or inflammatory process given the interval between studies, although the larger previously seen opacity could represent neoplasia. 4. Unchanged 4.3 cm x 3.9 cm mass left upper lobe remains suspicious for primary bronchogenic carcinoma. Infection is an additional consideration. Recommend follow-up per the Fleischner Society recommendations for solid nodules as below. 5. At least moderate centrilobular and mild paraseptal emphysema. 6. Unchanged right paratracheal and subcarinal lymphadenopathy, potentially reactive or metastatic. 7. Severe coronary atherosclerotic calcifications. 8. Mildly to moderately dilated pulmonary arteries, a finding that can be seen with pulmonary hypertension. Plan: - Recommend Biopsy for evaluation of lung mass by IR, Patient has declined intervention - Recommend Theraputic thorocentesis and patient has decided to consider it. 12/17/2016 spoken to patietn and he agreed for biopsy of the mass now. will speak to IR and will get it done on tuesday. (3) REBEKAH (acute kidney injury) Current Visit: Yes Status: Acute Assessment and plan: Improving with IV rehydration and holding Lasix. Mr. Menjivar presents with creatinine 2.12, Baseline around 1.12 with GFR >60. He was on Lasix 80mg daily at the retirement. He received 80mg IV once. He has been seen by Dr Saleem and Lasix was discontinued do to volume depletion. Contributing factors: Lasix and hypoalbuminemia Retroperitoneal US demonstrated bilateral areas of renal parenchymal thinning compatible with medical renal disease. No hydronephrosis. Plan: - Continue to avoid nephrotoxic medications and renally dose antibiotics. - Nephrology is following. - Continue gentle rehydration. 12/17/2016 improving creat. in view of worsening effusion and SOB : will stop IV fluids. (4) Hypertension Current Visit: No Status: Chronic Assessment and plan: stable and will continue to monitor. Qualifiers: Hypertension type: essential hypertension Qualified Code(s): I10 - Essential (primary) hypertension - Subjective Interval history: seen and examined. not keen for any further treatment. was keen to go home initially but now prefers to stay here. has worsening SOB - Constitutional Vitals: Temp Pulse Resp BP Pulse Ox 97.6 F 85 20 114/67 95 12/17/16 11:11 12/17/16 11:11 12/17/16 11:11 12/17/16 11:11 12/17/16 11:11 General appearance: Present: A&O X 3, answers questions appropriately - Head Head exam: Present: atraumatic, normocephalic - Eye Eye exam: Present: PERRL, conjuntiva pink, sclera anicteric Pupils: Present: PERRL - Neck Neck exam general surgery: Present: supple, trachea midline. Absent: lymphadenopathy - Respiratory Respiratory exam: Present: CTAB. Absent: accessory muscle use, rales, rhonchi, wheezes - Cardiovascular Cardiovascular exam: Present: RRR, +S1, +S2. Absent: diastolic murmur, gallop, rubs, systolic murmur - GI/Abdominal GI/Abdominal exam: Present: normal bowel sounds, soft, no peritoneal signs. Absent: distended, tenderness - Extremities Exam Extremities exam: Present: warm, radial pulses palpable and symetrical. Absent : calf tenderness, cyanotic, pedal edema - Neurological Exam Neurological exam: Present: CN II-XII intact, oriented X3, no focal deficits. Absent: pronater drift, facial droop, speech deficit - Skin Skin exam: Present: dry, intact Internal Medicine: Result - Labs CBC & Chem 7: 12/17/16 03:45 12/17/16 03:45 Labs: Short CBC 12/17/16 Range/Units 03:45 WBC 8.7 (4.3-11.1) K/mcL Hgb 10.2 L (12.9-16.9) g/dL Hct 32.0 L (37.5-50.1) % Plt Count 185 (140-400) K/mcL Neutrophils # 5.8 (1.6-8.9) K/mcL BMP 12/17/16 03:45 Sodium 141 Potassium 4.1 Chloride 107 Carbon Dioxide 28 BUN 39 H Creatinine 1.46 H Glucose 105 H Calcium 8.2 L Liver Function 12/17/16 Range/Units 03:45 Total Bilirubin 0.1 L (0.2-1.2) mg/dL AST 15 (5-34) Units/L ALT 12 (0-55) Units/L Alkaline Phosphatase 118 (38-126) Units/L Albumin 1.5 L (3.5-5.0) g/dL - ABG Interpretation ABG results: ABG ABG pH 7.44 pH Units (7.32-7.45) 12/15/16 04:43 ABG pCO2 54 mmHg (35-45) H 12/15/16 04:43 ABG pO2 68 mmHg (85-104) L 12/15/16 04:43 ABG O2 Saturation 94 % (95-98) L 12/15/16 04:43 PT/INR, D-dimer PT 11.0 Seconds (9.4-12.1) 12/14/16 14:22 - VTE Documentation of Mechanical Device: Graduated compression elastic hosiery Consult Discharge Plan - Plan Instructions: Prednisone (By mouth), Levofloxacin (By mouth), Heart Failure (DC ), Urinary Tract Infection in Men (DC), Atkinson Catheter Placement and Care (DC), Atkinson Catheter Placement and Care (GEN), Chronic Obstructive Pulmonary Disease ( DC), Chronic Hypertension (DC), Anemia (GEN), Pneumonia (DC), Cigarette Smoking and Your Health, 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 If you have congestive heart failure and your symptoms return, make an appointment with your physician. Symptoms: If your condition changes or you experience any of the following symptoms, notify your physician immediately: Unusual or worsening pain, fever, persistent nausea and vomiting, bleeding, increase in swelling (especially in your legs), sudden weight gain, extreme dizziness, chest pain, increased drainage or redness from a wound or incision. Go to the emergency department if you experience a problem with breathing. Weights: If you have a history of swelling or shortness of breath, weigh yourself daily and notify your physician if you have a weight gain of two or more pounds in one day or 5 or more pounds in a week. If you experience any of the warning signs for stroke: Sudden numbness or weakness of the face, arm or leg; especially on one side of the body, sudden confusion, trouble speaking or understanding, sudden trouble seeing in one or both eyes, sudden trouble walking, dizziness, loss of balance or coordination, sudden sever headache with no cause; Call 911 or go to the emergency room. Stroke is a medical emergency. Some risk factors for stroke: Age, cigarette smoking, diabetes, excessive alcohol consumption, family history , high blood pressure, overweight, physical inactivity, prior stroke, heart attack, diagnosis of carotid artery stenosis or other artery disease. If you smoke, STOP: Smoking or tobacco use significantly increases your risk of heart and lung disease. Your chance of disease greatly increases if you continue to smoke. For more information, call the [place] tobacco quit line for smoking cessation QUIT-NOW ( ) Referrals: Molly Cortez CNP [Primary Care Provider] - Prescriptions: Levofloxacin [Levaquin] 750 mg PO Q48H #4 tablet PredniSONE 40 mg PO DAILY 7 Days
[2016-12-17] MEDS ORDERED: *HR* LORazepam 2 MG/ML VIAL IVP ONE (16:04)
[2016-12-17] MEDS ORDERED: Water for inj. (sterile) 10 ML IV ONE (16:14)
--- NOTE | 2016-12-17 16:59 | Procedure Note ---
<Ramin Bhardwaj - Last Filed: 12/17/16 16:56> Date of procedure: 12/17/16 Pre-op diagnosis: Pleural effusion Post-op diagnosis: same Procedure: Written consent was obtained from the patient. The right posterior chest wall was surveyed using ultrasound and large pleural effusion was identified. The patient was cleaned and draped in the usual sterile fashion. The skin and subcutaneous tissues were anesthetized using 1% lidocaine. A pk in the skin using a scalpel was made. The catheter over needle apparatus was advanced to the skin and into the pleural space. Straw-colored pleural fluid was aspirated and the catheter was advanced the needle was withdrawn. The catheter was attached to pump suction and approximately 1000 mL of fluid was withdrawn. The catheter was then removed intact and pressure was applied. Band-Aid was applied over the site. The patient tolerated the procedure well and there are no immediate complications. Pleural fluid will be sent to lab for analysis. Postprocedure chest x-ray has been ordered and is pending. Anesthesia: local Surgeon: Ramin Bhardwaj Estimated blood loss (cc): 0 Pathology: other (Pleural fluid sent to lab for analysis) Condition: stable Disposition: floor <Wily Henning - Last Filed: 12/17/16 17:26> Procedure: I examined this patient and my medical decision-making was reviewed with the INFECTION CONTROL COORDINATOR/PA/Advanced Practice Nurse/Resident Physician. I agree with the documented findings, disposition and treatment plan as described except to the extent set forth below. i was personally present during this procedure.
[2016-12-17 17:34] LABS: Lactate Dehydrogenase 182 Units/L (159-327); Total Protein 5.4 g/dL (6.0-8.3)
[2016-12-17 17:47] LABS: Glucose,Pleural Fluid 117 mg/dL (No Ref Range); LDH,Pleural Fluid 97 Units/L (No Ref Range)
[2016-12-17 17:48] LABS: Total Protein,Pleural Fluid 1.6 g/dL (No Ref Range)
[2016-12-17 17:54] LABS: RBC,Pleural Fluid < 0.002 M/mcL
[2016-12-17 18:25] LABS: Appearance of Pleural Fl Clear (Clear)
[2016-12-18] MEDS: Ipratropium/Albuterol Neb 3 ML IH SCH ×4 (04:33→20:43)
[2016-12-18] MEDS: *HR* Heparin 5,000 UNIT/ML VIAL SQ SCH ×2 (06:16→20:27)
--- NOTE | 2016-12-18 09:17 | Internal Med Progress Note ---
Date of Encounter: 12/18/16 Time of Encounter: 09:15 - Assessment and plan (1) Pleural effusion Current Visit: No Status: Acute Assessment and plan: Large Bilateral Pleural effusions appreciated on CXR and CT of the chest 12/16 as mentioned above, compared to last CXR demonstrates re-accumulation since thorocentesis. Likely secondary to hypoalbuminemia and lung masses. This has been discussed with Mr. Bustos who refused intervention. Plan: - Mr. Bustos may benefit from therapeutic thorocentesis to reduce pulmonary restriction. 12/17/2016 Persistent SOB. Unable to breathe. Discussed with patient and he agreed for aspiration. Pleural fluid aspiration was done Resident and was supervised by me. ( please see note ) post aspiration patient feels better. 12/18/2016 Transudative pleural effusion. likely secondary to severe hypoalbuminemia. denies chest pain or SOB. will continue present management. (2) Lung mass Current Visit: No Status: Acute Assessment and plan: Recent diagnosed Left upper lobe mass one month ago measuring 3.4cm with adenopathy. Pulmonology was involved with his last visit and recommended follow up CT of the chest 4-6 weeks for reevaluation and possible broncoscopy with ultrasound guided biopsy. He had a thorocentesis performed at that time with the fluid demonstrating reactive mesothelial cells and inflammatory cells. Pleural fluid cultures were negative for acid fast and anaerobes. Concerns and recommendations regrading recent lung masses were discussed with Mr. Bustos. He declined any intervention or diagnostics regarding these lung masses because he said he would not do anything about it any ways and he does not want to know. Risk of not intervening have been discussed with Mr. Bustos who demonstrated understanding. Chest X-Ray 12/14/16 13:39 IMPRESSION: CHF with interstitial pulmonary edema, bilateral pleural effusions and bibasilar atelectasis. Mild progression from the comparison study. Chest CT 12/16/16 08:31 IMPRESSION: 1. Increased large bilateral pleural effusions. There is increased aeration of the bilateral lower lobes with persistent passive atelectasis bilaterally. 2. New patchy consolidative and groundglass opacities in the posterior segment of the right upper lobe, suspicious for pneumonia. 3. Increased size of subpleural nodular opacity in the anterior segment of the right upper lobe and new slightly more inferior nodular opacity also in the anterior segment. The increased size favors an infectious or inflammatory process given the interval between studies, although the larger previously seen opacity could represent neoplasia. 4. Unchanged 4.3 cm x 3.9 cm mass left upper lobe remains suspicious for primary bronchogenic carcinoma. Infection is an additional consideration. Recommend follow-up per the Fleischner Society recommendations for solid nodules as below. 5. At least moderate centrilobular and mild paraseptal emphysema. 6. Unchanged right paratracheal and subcarinal lymphadenopathy, potentially reactive or metastatic. 7. Severe coronary atherosclerotic calcifications. 8. Mildly to moderately dilated pulmonary arteries, a finding that can be seen with pulmonary hypertension. Plan: - Recommend Biopsy for evaluation of lung mass by IR, Patient has declined intervention - Recommend Theraputic thorocentesis and patient has decided to consider it. 12/17/2016 spoken to evert and he agreed for biopsy of the mass now. will speak to IR and will get it done on tuesday. 12/18/2016 still agree for FNA of lung mass on Tuesday. (3) REBEKAH (acute kidney injury) Current Visit: Yes Status: Acute Assessment and plan: Improving with IV rehydration and holding Lasix. Mr. Menjivar presents with creatinine 2.12, Baseline around 1.12 with GFR >60. [facility] He received 80mg IV once. He has been seen by Dr Saleem and Lasix was discontinued do to volume depletion. Contributing factors: Lasix and hypoalbuminemia Retroperitoneal US demonstrated bilateral areas of renal parenchymal thinning compatible with medical renal disease. No hydronephrosis. Plan: - Continue to avoid nephrotoxic medications and renally dose antibiotics. - Nephrology is following. - Continue gentle rehydration. 12/17/2016 improving creat. in view of worsening effusion and SOB : will stop IV fluids. 12/18/2016 no labs this AM will check tomorrow (4) Hypertension Current Visit: No Status: Chronic Assessment and plan: stable and will continue to monitor. Qualifiers: Hypertension type: essential hypertension Qualified Code(s): I10 - Essential (primary) hypertension - Subjective Interval history: seen and examined. not keen for any further treatment. was keen to go home initially but now prefers to stay here. has worsening SOB 12/18/2016 laying flat in bed and does not have any complaints. has occasional wheezes but doing better as compare to yesterday. denies chest pain. still agreeable for left sided thoracentesis and FNA of the mass. - Constitutional Vitals: Temp Pulse Resp BP Pulse Ox 97.7 F 77 18 120/75 90 L 12/18/16 07:00 12/18/16 07:00 12/18/16 07:00 12/18/16 07:00 12/18/16 07:00 General appearance: Present: A&O X 3, answers questions appropriately - Head Head exam: Present: atraumatic, normocephalic - Eye Eye exam: Present: PERRL, conjuntiva pink, sclera anicteric Pupils: Present: PERRL - Neck Neck exam general surgery: Present: supple, trachea midline. Absent: lymphadenopathy - Respiratory Respiratory exam: Present: CTAB. Absent: accessory muscle use, rales, rhonchi, wheezes - Cardiovascular Cardiovascular exam: Present: RRR, +S1, +S2. Absent: diastolic murmur, gallop, rubs, systolic murmur - GI/Abdominal GI/Abdominal exam: Present: normal bowel sounds, soft, no peritoneal signs. Absent: distended, tenderness - Extremities Exam Extremities exam: Present: warm, radial pulses palpable and symetrical. Absent : calf tenderness, cyanotic, pedal edema - Neurological Exam Neurological exam: Present: CN II-XII intact, oriented X3, no focal deficits. Absent: pronater drift, facial droop, speech deficit - Skin Skin exam: Present: dry, intact Internal Medicine: Result - Labs CBC & Chem 7: 12/17/16 03:45 12/17/16 03:45 - ABG Interpretation ABG results: ABG ABG pH 7.44 pH Units (7.32-7.45) 12/15/16 04:43 ABG pCO2 54 mmHg (35-45) H 12/15/16 04:43 ABG pO2 68 mmHg (85-104) L 12/15/16 04:43 ABG O2 Saturation 94 % (95-98) L 12/15/16 04:43 PT/INR, D-dimer PT 11.0 Seconds (9.4-12.1) 12/14/16 14:22 - Impressions Impressions Chest X-Ray 12/17/16 16:45 IMPRESSION: 1. Decrease in size in right-sided pleural effusion without evidence of pneumothorax. 2. Unchanged left pleural effusion. 3. Unchanged subarticular opacification of the mid and lower lungs bilaterally. D/ / Julian Salter MD / Julian Salter MD Interpreting Provider: Julian Salter MD - VTE Documentation of Mechanical Device: Graduated compression elastic hosiery Consult Discharge Plan - Plan Instructions: Prednisone (By mouth), Levofloxacin (By mouth), Heart Failure (DC ), Urinary Tract Infection in Men (DC), Atkinson Catheter Placement and Care (DC), Atkinson Catheter Placement and Care (GEN), Chronic Obstructive Pulmonary Disease ( DC), Chronic Hypertension (DC), Anemia (GEN), Pneumonia (DC), Cigarette Smoking and Your Health, Reclamation Supervisor (GEN) Additional Instructions: Follow-up appointments: If there is not an appointment listed below, please call your physician and schedule a follow-up appointment. If you have congestive heart failure and your symptoms return, make an appointment with your physician. Symptoms: If your condition changes or you experience any of the following symptoms, notify your physician immediately: Unusual or worsening pain, fever, persistent nausea and vomiting, bleeding, increase in swelling (especially in your legs), sudden weight gain, extreme dizziness, chest pain, increased drainage or redness from a wound or incision. Go to the emergency department if you experience a problem with breathing. Weights: If you have a history of swelling or shortness of breath, weigh yourself daily and notify your physician if you have a weight gain of two or more pounds in one day or 5 or more pounds in a week. If you experience any of the warning signs for stroke: Sudden numbness or weakness of the face, arm or leg; especially on one side of the body, sudden confusion, trouble speaking or understanding, sudden trouble seeing in one or both eyes, sudden trouble walking, dizziness, loss of balance or coordination, sudden sever headache with no cause; Call 911 or go to the emergency room. Stroke is a medical emergency. Some risk factors for stroke: Age, cigarette smoking, diabetes, excessive alcohol consumption, family history , high blood pressure, overweight, physical inactivity, prior stroke, heart attack, diagnosis of carotid artery stenosis or other artery disease. If you smoke, STOP: Smoking or tobacco use significantly increases your risk of heart and lung disease. Your chance of disease greatly increases if you continue to smoke. For more information, call the [place] tobacco quit line for smoking cessation 4668 QUIT-NOW ( ) Referrals: Molly Cortez CNP [Primary Care Provider] - Prescriptions: Levofloxacin [Levaquin] 750 mg PO Q48H #4 tablet PredniSONE 40 mg PO DAILY 7 Days
[2016-12-18 09:43] LABS: Calcium 8.2 mg/dL (8.6-10.8)
--- NOTE | 2016-12-18 09:58 | Nephrology Progress Note ---
Date of Encounter: 12/18/16 Time of Encounter: 09:36 - Assessment and Plan (1) REBEKAH (acute kidney injury) Current Visit: Yes Status: Acute Secondary to decreased effective intravascular volume in the setting of severe hypoalbuminemia Serum creatinine is trending down. F/U renal panel in a.m. Has nephrotic range proteinuria with nephrotic syndrome. urine PC ratio of 13. 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 Will need ABILIO inhibitor/ARB as an outpatient depending on BP and renal panel Subjective Principal diagnosis: SOB, peripheral edema Interval history: Had rt thoracentesis yesterday, 1 L of fluid was removed. on 10 lts o2, sat in high 80's-90. denies SOB with nasal o2, does not like Bipap. rather frustrated about the medical problems, upset that fluid has re accumulated in rt lung scheduled for lung biopsy on Tuesday Objective - Vital Signs Vital signs: Vital Signs Temp Pulse Resp BP Pulse Ox 12/18/16 07:00 97.7 F 77 18 120/75 90 L 12/18/16 04:33 12 100 12/18/16 03:00 97.6 F 76 20 131/69 100 12/17/16 22:42 18 99 12/17/16 21:00 97.7 F 69 19 122/81 96 12/17/16 16:10 20 96 12/17/16 15:26 97.6 F 73 22 102/87 92 L 12/17/16 11:11 97.6 F 85 20 114/67 95 12/17/16 10:11 18 95 Intake and Output 12/17/16 12/18/16 12/18/16 23:59 07:59 15:59 Intake Total 100 / 100 200 / 200 Output Total 425 / 425 325 / 325 Balance -325 / -325 -125 / -125 Intake: Oral 100 / 100 200 / 200 Output: Catheter 425 / 425 325 / 325 Other: Meal Dinner Percent of Meal Consumed 100% Weight 91.8 kg Patient Weight 12/18/16 23:59 Weight 91.8 kg - General Appearance Exam: CVS; s1s2 present, regular, no murmurs RESP; decreased air entry, no wheezing ABD; soft, NT, BS present, no organomegaly, no bruits EXT; 2+ edema, 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; alert oriented -3, CN grossly intact - Lab 12/17/16 03:45 12/17/16 03:45 Most recent lab results ABG pH 7.44 pH Units (7.32-7.45) 12/15/16 04:43 ABG pCO2 54 mmHg (35-45) H 12/15/16 04:43 ABG pO2 68 mmHg (85-104) L 12/15/16 04:43 ABG HCO3 36.7 mEQ/L (21-27) H 12/15/16 04:43 ABG O2 Saturation 94 % (95-98) L 12/15/16 04:43 Calcium 8.2 mg/dL (8.6-10.8) L 12/17/16 03:45 Phosphorus 5.2 mg/dL (2.3-4.7) H 12/14/16 14:22 Magnesium 2.3 mg/dL (1.6-2.6) 12/14/16 14:22 Urine Creatinine 99 mg/dL 12/17/16 09:26 Urine Total Protein 1381 mg/dL (1-14) H 12/17/16 09:26 - VTE Documentation of Mechanical Device: Graduated compression elastic hosiery Consult Discharge Plan - Plan Instructions: Prednisone (By mouth), Levofloxacin (By mouth), Heart Failure (DC ), Urinary Tract Infection in Men (DC), Atkinson Catheter Placement and Care (DC), Atkinson Catheter Placement and Care (GEN), Chronic Obstructive Pulmonary Disease ( DC), Chronic Hypertension (DC), Anemia (GEN), Pneumonia (DC), Cigarette Smoking and Your Health, Precision Instrument Maker And Repairer (GEN) Additional Instructions: Follow-up appointments: If there is not an appointment listed below, please call your physician and schedule a follow-up appointment. If you have congestive heart failure and your symptoms return, make an appointment with your physician. Symptoms: If your condition changes or you experience any of the following symptoms, notify your physician immediately: Unusual or worsening pain, fever, persistent nausea and vomiting, bleeding, increase in swelling (especially in your legs), sudden weight gain, extreme dizziness, chest pain, increased drainage or redness from a wound or incision. Go to the emergency department if you experience a problem with breathing. Weights: If you have a history of swelling or shortness of breath, weigh yourself daily and notify your physician if you have a weight gain of two or more pounds in one day or 5 or more pounds in a week. If you experience any of the warning signs for stroke: Sudden numbness or weakness of the face, arm or leg; especially on one side of the body, sudden confusion, trouble speaking or understanding, sudden trouble seeing in one or both eyes, sudden trouble walking, dizziness, loss of balance or coordination, sudden sever headache with no cause; Call 911 or go to the emergency room. Stroke is a medical emergency. Some risk factors for stroke: Age, cigarette smoking, diabetes, excessive alcohol consumption, family history , high blood pressure, overweight, physical inactivity, prior stroke, heart attack, diagnosis of carotid artery stenosis or other artery disease. If you smoke, STOP: Smoking or tobacco use significantly increases your risk of heart and lung disease. Your chance of disease greatly increases if you continue to smoke. For more information, call the [place] tobacco quit line for smoking cessation -NOW ( ) Referrals: Molly Cortez AFTER SCHOOL COORDINATOR [Primary Care Provider] - Prescriptions: Levofloxacin [Levaquin] 750 mg PO Q48H #4 tablet PredniSONE 40 mg PO DAILY 7 Days
[2016-12-18 10:09] LABS: Basophils % 0.2 %; Eosinophils % 0.3 %; Hematocrit 33.6 % (37.5-50.1); Hemoglobin 10.5 g/dL (12.9-16.9); Immature Granulocytes % 1.1 % (0-4); Lymphocytes # 2.2 K/mcL (0.6-4.6); Lymphocytes % 24.9 %; Mean Corpuscular HGB Conc 31.3 g/dL (31.6-35.5); Mean Corpuscular Hemoglobin 27.9 pg (28.0-33.3); Mean Corpuscular Volume 89.4 fL (83.0-100.0); Mean Platelet Volume 10.8 fL (9.4-12.4); Monocytes # 0.8 K/mcL (0.0-1.3); Monocytes % 8.6 %; Neutrophils # 5.7 K/mcL (1.6-8.9); Platelet Count 185 K/mcL (140-400); Red Blood Count 3.76 M/mcL (4.19-5.50); Red Cell Distribution Width 14.8 % (11.5-14.5); Segmented Neutrophils % 64.9 %
[2016-12-18] MEDS: Gabapentin 400 MG CAPSULE PO SCH ×3 (11:06→20:26)
[2016-12-18] MEDS: predniSONE 20 MG TABLET PO SCH (11:06)
--- NOTE | 2016-12-18 16:34 | Venous Imaging Report ---
UE Venous Duplex Patient Name:Pastor Bustos Order Number:[id number] Procedure Date:12/18/2016 Date:8Age:76 yrs Gender:Male Location:[facility] Room #: 2NE23 Process Tank Tender:Peggy Sidhu CHANO Referring MD:Wily Henning MD linen sorter:Molly Cortez, YARD ASSOCIATE Reading MD:Celestino Rashid MD , FACS Primary Indications:Left arm pain Secondary Indications: Risk Factors Yes/No Hx of DVT No Anticoagulants No Impressions: Left upper extremity: normal superficial and deep exam. Findings Venous Duplex Results: Left: Venous imaging of the upper extremity reveals full patency and normal vessel compressibility of the left jugular, left subclavian, left axillary, left brachial, left cephalic, left basilic, left basilic forearm, left radial and left ulnar. Doppler signals in the evaluated veins were normal. PT WOULD NOT LET THIS TECH TAKE CONTRALATERAL SUBCLAVIAN IMAGE. PT REFUSED. Prior Study: No prior study available for comparison. Upper Extremity Venous Duplex Side Vein Compress Spontaneous Flow Augment Left Basilic Forearm Normal Yes Phasic Yes Left Radial Normal Yes Phasic Yes Left Ulnar Normal Yes Phasic Yes Left Jugular Normal Yes Phasic Yes Left Subclavian Normal Yes Phasic Yes Left Axillary Normal Yes Phasic Yes Left Brachial Normal Yes Phasic Yes Left Cephalic Normal Yes Phasic Yes Left Basilic Normal Yes Phasic Yes Updated by Celestnio Rashid MD, FACS on 12/18/2016 4:27:11 PM Celestino Rashid MD electronically signed on 12/18/2016 4:28:11 PM with status of Final
[2016-12-19] MEDS: Ipratropium/Albuterol Neb 3 ML IH SCH ×4 (04:25→23:03)
[2016-12-19 05:19] LABS: Basophils % 0.1 %; Hematocrit 32.6 % (37.5-50.1); Hemoglobin 10.6 g/dL (12.9-16.9); Immature Granulocytes % 1.2 % (0-4); Lymphocytes # 1.7 K/mcL (0.6-4.6); Lymphocytes % 19.2 %; Mean Corpuscular HGB Conc 32.5 g/dL (31.6-35.5); Mean Corpuscular Hemoglobin 28.6 pg (28.0-33.3); Mean Corpuscular Volume 88.1 fL (83.0-100.0); Monocytes # 0.6 K/mcL (0.0-1.3); Monocytes % 6.7 %; Neutrophils # 6.3 K/mcL (1.6-8.9); Platelet Count 157 K/mcL (140-400); Red Cell Distribution Width 14.6 % (11.5-14.5); Segmented Neutrophils % 72.8 %
[2016-12-19 05:46] LABS: Alanine Aminotransferase 28 Units/L (0-55); Albumin/Globulin Ratio 0.4 (1.1-2.2); Alkaline Phosphatase 146 Units/L (38-126); Aspartate Amino Transferase 38 Units/L (5-34); BUN/Creatinine Ratio 30 (6-26); Bilirubin,Total 0.3 mg/dL (0.2-1.2); Blood Urea Nitrogen 42 mg/dL (8-26); Calcium 8.2 mg/dL (8.6-10.8); Carbon Dioxide 27 mEq/L (19-29); Chloride 108 mEq/L (98-109); Globulin 3.6 g/dL (2.4-3.5); Glucose 123 mg/dL (70-99); Osmolality,Calculated 304 (280-300); Phosphorous 3.7 mg/dL (2.3-4.7); Potassium 4.2 mEq/L (3.5-4.5); Sodium 141 mEq/L (136-145); eGFR For African Americans > 60 (> 60); eGFR For Non-African Americans 50 (> 60)
[2016-12-19 05:47] LABS: Albumin 1.4 g/dL (3.5-5.0)
[2016-12-19] MEDS: *HR* Heparin 5,000 UNIT/ML VIAL SQ SCH ×2 (06:38→18:32)
--- NOTE | 2016-12-19 09:07 | Nephrology Progress Note ---
Date of Encounter: 12/19/16 Time of Encounter: 09:06 - Assessment and Plan (1) REBEKAH (acute kidney injury) Current Visit: Yes Status: Acute Secondary to decreased effective intravascular volume in the setting of severe hypoalbuminemia Has nephrotic range proteinuria. urine PC ratio of 13. Serum cr improved from 2-1.3. 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 Suggest to start ABILIO inhibitor/ARB as an outpatient Subjective Principal diagnosis: SOB, peripheral edema Interval history: stable over night. o2 decreased from 10 lts to 7 lts. Urine output 1.2 L. denies SOB. Was on Bipap for few hrs last night Objective - Vital Signs Vital signs: Vital Signs Temp Pulse Resp BP Pulse Ox 12/19/16 07:19 97.5 F L 63 11 111/67 99 12/19/16 04:25 17 96 12/19/16 04:19 97.9 F 74 11 120/63 98 12/19/16 00:46 97.7 F 56 11 133/65 96 12/18/16 20:45 24 86 L 12/18/16 20:30 92 L 12/18/16 19:46 98.4 F 22 124/79 90 L 12/18/16 18:12 100 12/18/16 18:11 100 12/18/16 16:10 97.6 F 81 14 113/69 100 12/18/16 15:35 16 88 L 12/18/16 11:00 97.7 F 73 16 104/55 88 L 12/18/16 10:25 18 120/75 90 L Intake and Output 12/18/16 12/19/16 12/19/16 23:59 07:59 15:59 Intake Total 150 / 150 0 / 0 Output Total 250 / 250 650 / 650 Balance -100 / -100 -650 / -650 Intake: Oral 150 / 150 0 / 0 Output: Catheter 250 / 250 650 / 650 Other: Meal Dinner Percent of Meal Consumed 25% Weight 92.8 kg Patient Weight 12/19/16 23:59 Weight 92.8 kg - General Appearance Exam: CVS; s1s2 present, regular, no murmurs RESP; good air entry, diffuse exp wheezing ABD; soft, NT, BS present EXT; 3 # edema TEXTBOOK ASSOCIATE; alert oriented x 3 - Lab 12/19/16 05:06 12/19/16 05:06 Most recent lab results ABG pH 7.44 pH Units (7.32-7.45) 12/15/16 04:43 ABG pCO2 54 mmHg (35-45) H 12/15/16 04:43 ABG pO2 68 mmHg (85-104) L 12/15/16 04:43 ABG HCO3 36.7 mEQ/L (21-27) H 12/15/16 04:43 ABG O2 Saturation 94 % (95-98) L 12/15/16 04:43 Calcium 8.2 mg/dL (8.6-10.8) L 12/19/16 05:06 Phosphorus 3.7 mg/dL (2.3-4.7) 12/19/16 05:06 Magnesium 2.0 mg/dL (1.6-2.6) 12/19/16 05:06 Urine Creatinine 99 mg/dL 12/17/16 09:26 Urine Total Protein 1381 mg/dL (1-14) H 12/17/16 09:26 - VTE Documentation of Mechanical Device: Graduated compression elastic hosiery Consult Discharge Plan - Plan Instructions: Prednisone (By mouth), Levofloxacin (By mouth), Heart Failure (DC ), Urinary Tract Infection in Men (DC), Atkinson Catheter Placement and Care (DC), Atkinson Catheter Placement and Care (GEN), Chronic Obstructive Pulmonary Disease ( DC), Chronic Hypertension (DC), Anemia (GEN), Pneumonia (DC), Cigarette Smoking and Your Health, Steel Sash Erector (GEN) Additional Instructions: Follow-up appointments: If there is not an appointment listed below, please call your physician and schedule a follow-up appointment. If you have congestive heart failure and your symptoms return, make an appointment with your physician. Symptoms: If your condition changes or you experience any of the following symptoms, notify your physician immediately: Unusual or worsening pain, fever, persistent nausea and vomiting, bleeding, increase in swelling (especially in your legs), sudden weight gain, extreme dizziness, chest pain, increased drainage or redness from a wound or incision. Go to the emergency department if you experience a problem with breathing. Weights: If you have a history of swelling or shortness of breath, weigh yourself daily and notify your physician if you have a weight gain of two or more pounds in one day or 5 or more pounds in a week. If you experience any of the warning signs for stroke: Sudden numbness or weakness of the face, arm or leg; especially on one side of the body, sudden confusion, trouble speaking or understanding, sudden trouble seeing in one or both eyes, sudden trouble walking, dizziness, loss of balance or coordination, sudden sever headache with no cause; Call 911 or go to the emergency room. Stroke is a medical emergency. Some risk factors for stroke: Age, cigarette smoking, diabetes, excessive alcohol consumption, family history , high blood pressure, overweight, physical inactivity, prior stroke, heart attack, diagnosis of carotid artery stenosis or other artery disease. If you smoke, STOP: Smoking or tobacco use significantly increases your risk of heart and lung disease. Your chance of disease greatly increases if you continue to smoke. For more information, call the [place] [employer] quit line for smoking cessation QUIT-NOW ( ) Referrals: Molly Cortez SUGAR CHIPPER MACHINE OPERATOR [Primary Care Provider] - Prescriptions: Levofloxacin [Levaquin] 750 mg PO Q48H #4 tablet PredniSONE 40 mg PO DAILY 7 Days
[2016-12-19] MEDS: predniSONE 20 MG TABLET PO SCH (09:47)
[2016-12-19] MEDS: Gabapentin 400 MG CAPSULE PO SCH ×3 (09:47→22:09)
[2016-12-19] MEDS: Furosemide 40 MG/4 ML VIAL IVP SCH (09:48)
[2016-12-19] MEDS: levoFLOXacin 750 MG TABLET PO SCH (12:23)
--- NOTE | 2016-12-19 13:42 | Internal Med Progress Note ---
Date of Encounter: 12/19/16 Time of Encounter: 13:37 - Assessment and plan (1) Pleural effusion Current Visit: No Status: Acute Assessment and plan: Large Bilateral Pleural effusions appreciated on CXR and CT of the chest 12/16 as mentioned above, compared to last CXR demonstrates re-accumulation since thorocentesis. Likely secondary to hypoalbuminemia and lung masses. This has been discussed with Mr. Bustos who refused intervention. Plan: - Mr. Bustos may benefit from therapeutic thorocentesis to reduce pulmonary restriction. 12/17/2016 Persistent SOB. Unable to breathe. Discussed with patient and he agreed for aspiration. Pleural fluid aspiration was done Resident and was supervised by me. ( please see note ) post aspiration patient feels better. 12/18/2016 Transudative pleural effusion. likely secondary to severe hypoalbuminemia. denies chest pain or SOB. will continue present management. 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 (2) Lung mass Current Visit: No Status: Acute Assessment and plan: Recent diagnosed Left upper lobe mass one month ago measuring 3.4cm with adenopathy. Pulmonology was involved with his last visit and recommended follow up CT of the chest 4-6 weeks for reevaluation and possible broncoscopy with ultrasound guided biopsy. He had a thorocentesis performed at that time with the fluid demonstrating reactive mesothelial cells and inflammatory cells. Pleural fluid cultures were negative for acid fast and anaerobes. Concerns and recommendations regrading recent lung masses were discussed with Mr. Bustos. He declined any intervention or diagnostics regarding these lung masses because he said he would not do anything about it any ways and he does not want to know. Risk of not intervening have been discussed with Mr. Bustos who demonstrated understanding. Chest X-Ray 12/14/16 13:39 IMPRESSION: CHF with interstitial pulmonary edema, bilateral pleural effusions and bibasilar atelectasis. Mild progression from the comparison study. Chest CT 12/16/16 08:31 IMPRESSION: 1. Increased large bilateral pleural effusions. There is increased aeration of the bilateral lower lobes with persistent passive atelectasis bilaterally. 2. New patchy consolidative and groundglass opacities in the posterior segment of the right upper lobe, suspicious for pneumonia. 3. Increased size of subpleural nodular opacity in the anterior segment of the right upper lobe and new slightly more inferior nodular opacity also in the anterior segment. The increased size favors an infectious or inflammatory process given the interval between studies, although the larger previously seen opacity could represent neoplasia. 4. Unchanged 4.3 cm x 3.9 cm mass left upper lobe remains suspicious for primary bronchogenic carcinoma. Infection is an additional consideration. Recommend follow-up per the Fleischner Society recommendations for solid nodules as below. 5. At least moderate centrilobular and mild paraseptal emphysema. 6. Unchanged right paratracheal and subcarinal lymphadenopathy, potentially reactive or metastatic. 7. Severe coronary atherosclerotic calcifications. 8. Mildly to moderately dilated pulmonary arteries, a finding that can be seen with pulmonary hypertension. Plan: - Recommend Biopsy for evaluation of lung mass by IR, Patient has declined intervention - Recommend Theraputic thorocentesis and patient has decided to consider it. 12/17/2016 spoken to evert and he agreed for biopsy of the mass now. will speak to IR and will get it done on tuesday. 12/18/2016 still agree for FNA of lung mass on Tuesday. (3) REBEKAH (acute kidney injury) Current Visit: Yes Status: Acute Assessment and plan: Improving with IV rehydration and holding Lasix. Mr. Menjivar presents with creatinine 2.12, Baseline around 1.12 with GFR >60. He was on Lasix 80mg daily at the group home. He received 80mg IV once. He has been seen by Dr Saleem and Lasix was discontinued do to volume depletion. Contributing factors: Lasix and hypoalbuminemia Retroperitoneal US demonstrated bilateral areas of renal parenchymal thinning compatible with medical renal disease. No hydronephrosis. Plan: - Continue to avoid nephrotoxic medications and renally dose antibiotics. - Nephrology is following. - Continue gentle rehydration. 12/17/2016 improving creat. in view of worsening effusion and SOB : will stop IV fluids. 12/18/2016 no labs this AM will check tomorrow (4) Hypertension Current Visit: No Status: Chronic Assessment and plan: stable and will continue to monitor. Qualifiers: Hypertension type: essential hypertension Qualified Code(s): I10 - Essential (primary) hypertension - Subjective Interval history: seen and examined. not keen for any further treatment. was keen to go home initially but now prefers to stay here. has worsening SOB 12/18/2016 laying flat in bed and does not have any complaints. has occasional wheezes but doing better as compare to yesterday. denies chest pain. still agreeable for left sided thoracentesis and FNA of the mass. 12/19/2016 Pleural fluid reports updated. informed that some reports are still pending. will get IR guided FNA and aspiration tomorrow. - Constitutional Vitals: Temp Pulse Resp BP Pulse Ox 97.5 F L 63 12 116/58 95 12/19/16 11:13 12/19/16 11:13 12/19/16 11:13 12/19/16 11:13 12/19/16 11:13 General appearance: Present: A&O X 3, answers questions appropriately - Head Head exam: Present: atraumatic, normocephalic - Eye Eye exam: Present: PERRL, conjuntiva pink, sclera anicteric Pupils: Present: PERRL - Neck Neck exam general surgery: Present: supple, trachea midline. Absent: lymphadenopathy - Respiratory Respiratory exam: Present: CTAB. Absent: accessory muscle use, rales, rhonchi, wheezes - Cardiovascular Cardiovascular exam: Present: RRR, +S1, +S2. Absent: diastolic murmur, gallop, rubs, systolic murmur - GI/Abdominal GI/Abdominal exam: Present: normal bowel sounds, soft, no peritoneal signs. Absent: distended, tenderness - Extremities Exam Extremities exam: Present: warm, radial pulses palpable and symetrical. Absent : calf tenderness, cyanotic, pedal edema - Neurological Exam Neurological exam: Present: CN II-XII intact, oriented X3, no focal deficits. Absent: pronater drift, facial droop, speech deficit - Skin Skin exam: Present: dry, intact Internal Medicine: Result - Labs CBC & Chem 7: 12/19/16 05:06 12/19/16 05:06 Labs: Short CBC 12/19/16 Range/Units 05:06 WBC 8.7 (4.3-11.1) K/mcL Hgb 10.6 L (12.9-16.9) g/dL Hct 32.6 L (37.5-50.1) % Plt Count 157 (140-400) K/mcL Neutrophils # 6.3 (1.6-8.9) K/mcL BMP 12/19/16 05:06 Sodium 141 Potassium 4.2 Chloride 108 Carbon Dioxide 27 BUN 42 H Creatinine 1.38 H Glucose 123 H Calcium 8.2 L Liver Function 12/19/16 Range/Units 05:06 Total Bilirubin 0.3 (0.2-1.2) mg/dL AST 38 H (5-34) Units/L ALT 28 (0-55) Units/L Alkaline Phosphatase 146 H (38-126) Units/L Albumin 1.4 L (3.5-5.0) g/dL - ABG Interpretation ABG results: ABG ABG pH 7.44 pH Units (7.32-7.45) 12/15/16 04:43 ABG pCO2 54 mmHg (35-45) H 12/15/16 04:43 ABG pO2 68 mmHg (85-104) L 12/15/16 04:43 ABG O2 Saturation 94 % (95-98) L 12/15/16 04:43 PT/INR, D-dimer PT 11.0 Seconds (9.4-12.1) 12/14/16 14:22 - VTE Documentation of Mechanical Device: Graduated compression elastic hosiery Consult Discharge Plan - Plan Instructions: Prednisone (By mouth), Levofloxacin (By mouth), Heart Failure (DC ), Urinary Tract Infection in Men (DC), Atkinson Catheter Placement and Care (DC), Atkinson Catheter Placement and Care (GEN), Chronic Obstructive Pulmonary Disease ( DC), Chronic Hypertension (DC), Anemia (GEN), Pneumonia (DC), Cigarette Smoking and Your Health, Correctional Classification Counselor (GEN) Additional Instructions: Follow-up appointments: If there is not an appointment listed below, please call your physician and schedule a follow-up appointment. If you have congestive heart failure and your symptoms return, make an appointment with your physician. Symptoms: If your condition changes or you experience any of the following symptoms, notify your physician immediately: Unusual or worsening pain, fever, persistent nausea and vomiting, bleeding, increase in swelling (especially in your legs), sudden weight gain, extreme dizziness, chest pain, increased drainage or redness from a wound or incision. Go to the emergency department if you experience a problem with breathing. Weights: If you have a history of swelling or shortness of breath, weigh yourself daily and notify your physician if you have a weight gain of two or more pounds in one day or 5 or more pounds in a week. If you experience any of the warning signs for stroke: Sudden numbness or weakness of the face, arm or leg; especially on one side of the body, sudden confusion, trouble speaking or understanding, sudden trouble seeing in one or both eyes, sudden trouble walking, dizziness, loss of balance or coordination, sudden sever headache with no cause; Call 911 or go to the emergency room. Stroke is a medical emergency. Some risk factors for stroke: Age, cigarette smoking, diabetes, excessive alcohol consumption, family history , high blood pressure, overweight, physical inactivity, prior stroke, heart attack, diagnosis of carotid artery stenosis or other artery disease. If you smoke, STOP: Smoking or tobacco use significantly increases your risk of heart and lung disease. Your chance of disease greatly increases if you continue to smoke. For more information, call the [place] tobacco quit line for smoking cessation QUIT-NOW ( ) Referrals: Molly Cortez CNP [Primary Care Provider] - Prescriptions: Levofloxacin [Levaquin] 750 mg PO Q48H #4 tablet PredniSONE 40 mg PO DAILY 7 Days
[2016-12-19] MEDS: Nicotine 14 MG PATCH.TD24 TD SCH (15:16)
[2016-12-19] MEDS ORDERED: Sennosides 8.6 MG TABLET PO PRN (18:17)
[2016-12-20] MEDS: Ipratropium/Albuterol Neb 3 ML IH SCH ×4 (04:48→23:05)
[2016-12-20 06:23] LABS: Basophils % 0.2 %; Eosinophils % 0.2 %; Hematocrit 34.4 % (37.5-50.1); Hemoglobin 10.9 g/dL (12.9-16.9); Immature Granulocytes % 1.3 % (0-4); Lymphocytes # 2.1 K/mcL (0.6-4.6); Lymphocytes % 22.6 %; Mean Corpuscular HGB Conc 31.7 g/dL (31.6-35.5); Mean Corpuscular Hemoglobin 28.2 pg (28.0-33.3); Mean Corpuscular Volume 89.1 fL (83.0-100.0); Mean Platelet Volume 10.5 fL (9.4-12.4); Monocytes # 0.8 K/mcL (0.0-1.3); Monocytes % 8.1 %; Neutrophils # 6.3 K/mcL (1.6-8.9); Platelet Count 150 K/mcL (140-400); Red Blood Count 3.86 M/mcL (4.19-5.50); Red Cell Distribution Width 14.7 % (11.5-14.5); Segmented Neutrophils % 67.6 %
[2016-12-20] MEDS: *HR* Heparin 5,000 UNIT/ML VIAL SQ SCH ×2 (06:27→17:39)
[2016-12-20 06:38] LABS: Alanine Aminotransferase 79 Units/L (0-55); Albumin/Globulin Ratio 0.4 (1.1-2.2); Alkaline Phosphatase 183 Units/L (38-126); Aspartate Amino Transferase 91 Units/L (5-34); BUN/Creatinine Ratio 31 (6-26); Bilirubin,Total 0.2 mg/dL (0.2-1.2); Blood Urea Nitrogen 42 mg/dL (8-26); Calcium 8.3 mg/dL (8.6-10.8); Carbon Dioxide 28 mEq/L (19-29); Chloride 106 mEq/L (98-109); Globulin 3.5 g/dL (2.4-3.5); Glucose 100 mg/dL (70-99); Osmolality,Calculated 301 (280-300); Potassium 4.1 mEq/L (3.5-4.5); Sodium 140 mEq/L (136-145); Total Protein 4.9 g/dL (6.0-8.3); eGFR For African Americans > 60 (> 60); eGFR For Non-African Americans 52 (> 60)
[2016-12-20 06:42] LABS: Albumin 1.4 g/dL (3.5-5.0)
[2016-12-20] MEDS: Furosemide 40 MG/4 ML VIAL IVP SCH (09:03)
[2016-12-20] MEDS: Gabapentin 400 MG CAPSULE PO SCH ×3 (09:03→21:51)
[2016-12-20] MEDS: predniSONE 20 MG TABLET PO SCH (09:03)
[2016-12-20] MEDS: Nicotine 14 MG PATCH.TD24 TD SCH (09:03)
--- NOTE | 2016-12-20 09:05 | Event Note ---
Date of Encounter: 12/20/16 Time of Encounter: 09:05 The patient's renal function continues to improve. Nephrology will sign off. Please call again if needed.
--- NOTE | 2016-12-20 09:51 | Internal Med Progress Note ---
<Ramin Bhardwaj - Last Filed: 12/20/16 09:56> Date of Encounter: 12/20/16 Time of Encounter: 09:49 - Assessment and plan (1) Lung mass Current Visit: No Status: Acute Assessment and plan: Concern for malignancy. Patient had been initially hesitant to undergo biopsy but this was discussed at length with the patient and he is agreeable today. IR has been consulted. will follow up on path report. (2) Pleural effusion Current Visit: No Status: Acute Assessment and plan: Bilateral. s/p right side thoracentesis on Tuesday. Lymphocytic predominate transudative effusion. Cytology pending. Micro negative at 24h. Plan for left side thoracentesis today by IR for symptomatic relief (3) REBEKAH (acute kidney injury) Current Visit: Yes Status: Acute Assessment and plan: Cr Improving and good UOP. 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 Continue diureses. Continue to monitor renal function (4) Hypertension Current Visit: No Status: Chronic Assessment and plan: Stable. Continue to monitor Qualifiers: Hypertension type: essential hypertension Qualified Code(s): I10 - Essential (primary) hypertension - Subjective Interval history: Patient seen and examined at bedside. Patient has no complaints at this time. He states his breathing is pretty good. He denies fevers, chills, hemoptysis - Constitutional Vitals: Temp Pulse Resp BP Pulse Ox 97.3 F L 68 12 134/65 98 12/20/16 06:00 12/20/16 06:00 12/20/16 06:00 12/20/16 06:00 12/20/16 06:00 General appearance: Present: A&O X 3, answers questions appropriately - Respiratory Respiratory exam: Present: decreased breath sounds. Absent: rales, respiratory distress, rhonchi, wheezes, tachypnea - Cardiovascular Cardiovascular exam: Present: RRR. Absent: gallop, rubs, systolic murmur - GI/Abdominal GI/Abdominal exam: Present: normal bowel sounds, soft. Absent: distended, tenderness - Extremities Exam Extremities exam: Absent: cyanotic, warm Additional comments: 3+ pitting edema to LE and UE bilaterally - Neurological Exam Neurological exam: Present: alert, CN II-XII intact, oriented X3, no focal deficits - Psychiatric Psychiatric exam: Present: anxious Internal Medicine: Result - Labs CBC & Chem 7: 12/20/16 05:52 12/20/16 05:52 Labs: Short CBC 12/20/16 Range/Units 05:52 WBC 9.3 (4.3-11.1) K/mcL Hgb 10.9 L (12.9-16.9) g/dL Hct 34.4 L (37.5-50.1) % Plt Count 150 (140-400) K/mcL Neutrophils # 6.3 (1.6-8.9) K/mcL BMP 12/20/16 05:52 Sodium 140 Potassium 4.1 Chloride 106 Carbon Dioxide 28 BUN 42 H Creatinine 1.34 H Glucose 100 H Calcium 8.3 L Liver Function 12/20/16 Range/Units 05:52 Total Bilirubin 0.2 (0.2-1.2) mg/dL AST 91 H (5-34) Units/L ALT 79 H (0-55) Units/L Alkaline Phosphatase 183 H (38-126) Units/L Albumin 1.4 L (3.5-5.0) g/dL - ABG Interpretation ABG results: ABG ABG pH 7.44 pH Units (7.32-7.45) 12/15/16 04:43 ABG pCO2 54 mmHg (35-45) H 12/15/16 04:43 ABG pO2 68 mmHg (85-104) L 12/15/16 04:43 ABG O2 Saturation 94 % (95-98) L 12/15/16 04:43 PT/INR, D-dimer PT 11.0 Seconds (9.4-12.1) 12/14/16 14:22 - VTE Documentation of Mechanical Device: Graduated compression elastic hosiery Consult Discharge Plan - Plan Instructions: Prednisone (By mouth), Levofloxacin (By mouth), Heart Failure (DC ), Urinary Tract Infection in Men (DC), Atkinson Catheter Placement and Care (DC), Atkinson Catheter Placement and Care (GEN), Chronic Obstructive Pulmonary Disease ( DC), Chronic Hypertension (DC), Anemia (GEN), Pneumonia (DC), Cigarette Smoking and Your Health, [employer] Pump Tender (GEN) Additional Instructions: Follow-up appointments: If there is not an appointment listed below, please call your physician and schedule a follow-up appointment. If you have congestive heart failure and your symptoms return, make an appointment with your physician. Symptoms: If your condition changes or you experience any of the following symptoms, notify your physician immediately: Unusual or worsening pain, fever, persistent nausea and vomiting, bleeding, increase in swelling (especially in your legs), sudden weight gain, extreme dizziness, chest pain, increased drainage or redness from a wound or incision. Go to the emergency department if you experience a problem with breathing. Weights: If you have a history of swelling or shortness of breath, weigh yourself daily and notify your physician if you have a weight gain of two or more pounds in one day or 5 or more pounds in a week. If you experience any of the warning signs for stroke: Sudden numbness or weakness of the face, arm or leg; especially on one side of the body, sudden confusion, trouble speaking or understanding, sudden trouble seeing in one or both eyes, sudden trouble walking, dizziness, loss of balance or coordination, sudden sever headache with no cause; Call 911 or go to the emergency room. Stroke is a medical emergency. Some risk factors for stroke: Age, cigarette smoking, diabetes, excessive alcohol consumption, family history , high blood pressure, overweight, physical inactivity, prior stroke, heart attack, diagnosis of carotid artery stenosis or other artery disease. If you smoke, STOP: Smoking or tobacco use significantly increases your risk of heart and lung disease. Your chance of disease greatly increases if you continue to smoke. For more information, call the [place] [employer] quit line for smoking cessation 6- QUIT-NOW ( ) Referrals: Molly Cortez CNP [Primary Care Provider] - Prescriptions: Levofloxacin [Levaquin] 750 mg PO Q48H #4 tablet PredniSONE 40 mg PO DAILY 7 Days <Wily Henning - Last Filed: 12/20/16 17:52> - Assessment and plan (1) Pleural effusion Current Visit: No Status: Acute (2) Lung mass Current Visit: No Status: Acute (3) REBEKAH (acute kidney injury) Current Visit: Yes Status: Acute (4) Hypertension Current Visit: No Status: Chronic Qualifiers: Hypertension type: essential hypertension Qualified Code(s): I10 - Essential (primary) hypertension - Constitutional Vitals: Temp Pulse Resp BP Pulse Ox 97.5 F L 70 17 111/71 95 12/20/16 16:19 12/20/16 16:19 12/20/16 16:19 12/20/16 16:19 12/20/16 16:19 Internal Medicine: Result - Labs CBC & Chem 7: 12/20/16 05:52 12/20/16 05:52 Labs: Short CBC 12/20/16 Range/Units 05:52 WBC 9.3 (4.3-11.1) K/mcL Hgb 10.9 L (12.9-16.9) g/dL Hct 34.4 L (37.5-50.1) % Plt Count 150 (140-400) K/mcL Neutrophils # 6.3 (1.6-8.9) K/mcL BMP 12/20/16 05:52 Sodium 140 Potassium 4.1 Chloride 106 Carbon Dioxide 28 BUN 42 H Creatinine 1.34 H Glucose 100 H Calcium 8.3 L Liver Function 12/20/16 Range/Units 05:52 Total Bilirubin 0.2 (0.2-1.2) mg/dL AST 91 H (5-34) Units/L ALT 79 H (0-55) Units/L Alkaline Phosphatase 183 H (38-126) Units/L Albumin 1.4 L (3.5-5.0) g/dL - ABG Interpretation ABG results: ABG ABG pH 7.44 pH Units (7.32-7.45) 12/15/16 04:43 ABG pCO2 54 mmHg (35-45) H 12/15/16 04:43 ABG pO2 68 mmHg (85-104) L 12/15/16 04:43 ABG O2 Saturation 94 % (95-98) L 12/15/16 04:43 PT/INR, D-dimer PT 11.0 Seconds (9.4-12.1) 12/14/16 14:22 - Impressions Impressions Lung Biopsy CT 12/20/16 00:00 IMPRESSION: Successful CT guided core biopsy of a left upper lobe mass. Successful CT-guided left-sided thoracentesis. D/ / Daryn Mckeon MD / Daryn Mckeon MD Interpreting Provider: Daryn Mckeon MD Thoracentesis 12/20/16 00:00 IMPRESSION: Successful CT guided core biopsy of a left upper lobe mass. Successful CT-guided left-sided thoracentesis. D/ / Daryn Mckeon MD / Daryn Mckeon MD Interpreting Provider: Daryn Mckeon MD - Attending Attestation I examined this patient and my medical decision-making was reviewed with the BLOOD DONOR RECRUITER SUPERVISOR/PA/Advanced Practice Nurse/Resident Physician. I agree with the documented findings, disposition and treatment plan as described except to the extent set forth below. 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
[2016-12-20 12:44] LABS: Hepatitis B Surface Antigen Nonreactive (Nonreactive); Hepatitis C Virus Antibody Nonreactive (Nonreactive)
--- NOTE | 2016-12-20 13:26 | Palliative Progress Note ---
Date of Encounter: 12/20/16 Time of Encounter: 09:30 - Assessment and plan (1) REBEKAH (acute kidney injury) Current Visit: Yes Status: Acute Assessment and plan: This is improving, continue to watch. And avoid nephrotoxic medications. (2) COPD (chronic obstructive pulmonary disease) Current Visit: Yes Status: Acute Assessment and plan: Her weight back down to 4 L by nasal cannula and still satting reasonably well. Patient states that his breathing is still not back to what is normal for him. Qualifiers: COPD type: unspecified COPD Qualified Code(s): J44.9 - Chronic obstructive pulmonary disease, unspecified (3) Dyspnea Current Visit: No Status: Acute Assessment and plan: This has improved, however the patient still becomes short of breath even sometimes with talking. Qualifiers: Dyspnea type: dyspnea on exertion Qualified Code(s): R06.09 - Other forms of dyspnea (4) Goals of care, counseling/discussion Current Visit: No Status: Acute Assessment and plan: Full code, also care for the patient returned home. He is at least at this time , okay with having biopsy done and workup of the lung mass. (5) Lung mass Current Visit: No Status: Acute Assessment and plan: At this time the patient is interested in having the lung mass - Time Spent With Patient Total time spent is greater than 50% in coordination of care (as documented) at patient's floor/unit and/or counseling patient: - Subjective Interval history: He has no complaint of abscess this time. Expecting to have a thoracentesis on the left hand side this afternoon and states that he is already given consent for biopsy of the mass. He is concerned that this mass is cancerous, is willing to have it done and find out what his options are. - Constitutional Vitals: Abnormal lab results RBC 3.86 M/mcL (4.19-5.50) L 12/20/16 05:52 Hgb 10.9 g/dL (12.9-16.9) L 12/20/16 05:52 Hct 34.4 % (37.5-50.1) L 12/20/16 05:52 RDW 14.7 % (11.5-14.5) H 12/20/16 05:52 ABG pCO2 54 mmHg (35-45) H 12/15/16 04:43 ABG pO2 68 mmHg (85-104) L 12/15/16 04:43 ABG HCO3 36.7 mEQ/L (21-27) H 12/15/16 04:43 ABG Total CO2 38.4 mEq/L (20-26) H 12/15/16 04:43 ABG O2 Saturation 94 % (95-98) L 12/15/16 04:43 ABG Base Excess 11.1 mEq/L (-2.0 to 3.0) H 12/15/16 04:43 BUN 42 mg/dL (8-26) H 12/20/16 05:52 Creatinine 1.34 mg/dL (0.72-1.25) H 12/20/16 05:52 Est GFR (Non-Af Amer) 52 (> 60) L 12/20/16 05:52 BUN/Creatinine Ratio 31 (6-26) H 12/20/16 05:52 Glucose 100 mg/dL (70-99) H 12/20/16 05:52 Calculated Osmolality 301 (280-300) H 12/20/16 05:52 Calcium 8.3 mg/dL (8.6-10.8) L 12/20/16 05:52 AST 91 Units/L (5-34) H 12/20/16 05:52 ALT 79 Units/L (0-55) H 12/20/16 05:52 Alkaline Phosphatase 183 Units/L (38-126) H 12/20/16 05:52 B-Natriuretic Peptide 397 pg/mL (0-100) H 12/14/16 14:22 Serum Total Protein 4.9 g/dL (6.0-8.3) L 12/20/16 05:52 Albumin 1.4 g/dL (3.5-5.0) L 12/20/16 05:52 Albumin/Globulin Ratio 0.4 (1.1-2.2) L 12/20/16 05:52 Urine Clarity Cloudy (Clear) A 12/14/16 14:43 Urine Protein 100 mg/dL (Neg-Trace) H 12/14/16 14:43 Urine Blood Moderate (Negative) H 12/14/16 14:43 Ur Leukocyte Esterase Small (Negative) H 12/14/16 14:43 Urine Microscopic RBC 30-50 per hpf (0-3) H 12/14/16 14:43 Urine Microscopic WBC 50-100 per hpf (0-3) H 12/14/16 14:43 Ur Squamous Epith Cells Many per lpf (None-Few) H 12/14/16 14:43 Urine Yeast Few per hpf (None Seen) H 12/14/16 14:43 Ur Culture Indicated? YES (NO) A 12/14/16 14:43 Protein/Creatinin Ratio 13.95 mg/mg (0-0.20) H 12/17/16 09:26 Urine Total Protein 1381 mg/dL (1-14) H 12/17/16 09:26 General appearance: Present: no acute distress - Head Head exam: Present: atraumatic, normal inspection - Eye Eye exam: Present: normal appearance - ENT ENT exam: Present: mucous membranes moist - Respiratory Respiratory exam: Present: decreased breath sounds, wheezes - Cardiovascular Cardiovascular exam: Present: RRR - GI/Abdominal GI/Abdominal exam: Present: normal bowel sounds, soft. Absent: tenderness - Extremities Exam Extremities exam: Present: normal inspection. Absent: pedal edema, tenderness - Neurological Exam Neurological exam: Present: alert - Psychiatric Psychiatric exam: Present: normal affect, normal mood. Absent: agitated, anxious - Skin Skin exam: Present: dry, warm Palliative Quality Palliative Quality: Screen for Code Status: Yes, Screen for Goals of Care: Yes, Screen for Pain: Yes, If Pain Regimen Started, Initiate Bowel Regimen: No, Screen for Nausea/Vomitting: Yes - Labs CBC & Chem 7: 12/20/16 05:52 12/20/16 05:52 Labs: Laboratory Results - last 24 hr 12/19/16 12/20/16 12/20/16 05:06 05:52 05:52 WBC 9.3 RBC 3.86 L Hgb 10.9 L Hct 34.4 L MCV 89.1 MCH 28.2 MCHC 31.7 RDW 14.7 H Plt Count 150 MPV 10.5 Immature Gran % 1.3 Seg Neutrophils % 67.6 Lymphocytes % 22.6 Monocytes % 8.1 Eosinophils % 0.2 Basophils % 0.2 Neutrophils # 6.3 Lymphocytes # 2.1 Monocytes # 0.8 Eosinophils # 0.0 Basophils # 0.0 Sodium 140 Potassium 4.1 Chloride 106 Carbon Dioxide 28 BUN 42 H Creatinine 1.34 H Est GFR ( Amer) > 60 Est GFR (Non-Af Amer) 52 L BUN/Creatinine Ratio 31 H Glucose 100 H Calculated Osmolality 301 H Calcium 8.3 L Total Bilirubin 0.2 AST 91 H ALT 79 H Alkaline Phosphatase 183 H Serum Total Protein 4.9 L Albumin 1.4 L Globulin 3.5 Albumin/Globulin Ratio 0.4 L Hep Bs Antigen Nonreactive Hep Bs Antibody 0.00 Hepatitis C Ab Screen Nonreactive - ABG Interpretation ABG results: ABG ABG pH 7.44 pH Units (7.32-7.45) 12/15/16 04:43 ABG pCO2 54 mmHg (35-45) H 12/15/16 04:43 ABG pO2 68 mmHg (85-104) L 12/15/16 04:43 ABG O2 Saturation 94 % (95-98) L 12/15/16 04:43 PT/INR, D-dimer PT 11.0 Seconds (9.4-12.1) 12/14/16 14:22 Consult Discharge Plan - Plan Instructions: Prednisone (By mouth), Levofloxacin (By mouth), Heart Failure (DC ), Urinary Tract Infection in Men (DC), Atkinson Catheter Placement and Care (DC), Atkinson Catheter Placement and Care (GEN), Chronic Obstructive Pulmonary Disease ( DC), Chronic Hypertension (DC), Anemia (GEN), Pneumonia (DC), Cigarette Smoking and Your Health, Cardiac Rn (GEN) Additional Instructions: Follow-up appointments: If there is not an appointment listed below, please call your physician and schedule a follow-up appointment. If you have congestive heart failure and your symptoms return, make an appointment with your physician. Symptoms: If your condition changes or you experience any of the following symptoms, notify your physician immediately: Unusual or worsening pain, fever, persistent nausea and vomiting, bleeding, increase in swelling (especially in your legs), sudden weight gain, extreme dizziness, chest pain, increased drainage or redness from a wound or incision. Go to the emergency department if you experience a problem with breathing. Weights: If you have a history of swelling or shortness of breath, weigh yourself daily and notify your physician if you have a weight gain of two or more pounds in one day or 5 or more pounds in a week. If you experience any of the warning signs for stroke: Sudden numbness or weakness of the face, arm or leg; especially on one side of the body, sudden confusion, trouble speaking or understanding, sudden trouble seeing in one or both eyes, sudden trouble walking, dizziness, loss of balance or coordination, sudden sever headache with no cause; Call 911 or go to the emergency room. Stroke is a medical emergency. Some risk factors for stroke: Age, cigarette smoking, diabetes, excessive alcohol consumption, family history , high blood pressure, overweight, physical inactivity, prior stroke, heart attack, diagnosis of carotid artery stenosis or other artery disease. If you smoke, STOP: Smoking or tobacco use significantly increases your risk of heart and lung disease. Your chance of disease greatly increases if you continue to smoke. For more information, call the [facility] quit line for smoking cessation 3 QUIT-NOW ( ) Referrals: Molly Cortez CNP [Primary Care Provider] - Prescriptions: Levofloxacin [Levaquin] 750 mg PO Q48H #4 tablet PredniSONE 40 mg PO DAILY 7 Days
--- NOTE | 2016-12-20 15:36 | IR Procedure Note ---
Date of procedure: 12/20/16 Consent Obtained: Verbal consent, Written consent Timeout: Correct patient and procedure verified, Correct site verified, Time out performed, Skin prep completed Local anesthetic: Lidocaine 1% Indications: Pleural effusions, lung mass Procedure Performed: Left lung mass biopsy and left thoracentesis Site/Technique: Left lung mass biopsy and left thoracentesis performed Results/Findings: Large left pleural effusion Estimated blood loss (cc): 2 Complications: None; Tolerated procedure well Post Procedure Treatment Plan: Bedrest x1 hour
[2016-12-21] MEDS: Ipratropium/Albuterol Neb 3 ML IH SCH ×4 (04:03→21:31)
[2016-12-21 05:46] LABS: Hematocrit 32.9 % (37.5-50.1); Hemoglobin 10.4 g/dL (12.9-16.9); Immature Granulocytes % 0.6 % (0-4); Lymphocytes # 1.4 K/mcL (0.6-4.6); Lymphocytes % 15.2 %; Mean Corpuscular HGB Conc 31.6 g/dL (31.6-35.5); Mean Corpuscular Volume 88.7 fL (83.0-100.0); Mean Platelet Volume 11.4 fL (9.4-12.4); Monocytes # 0.7 K/mcL (0.0-1.3); Monocytes % 6.9 %; Neutrophils # 7.3 K/mcL (1.6-8.9); Platelet Count 136 K/mcL (140-400); Red Blood Count 3.71 M/mcL (4.19-5.50); Red Cell Distribution Width 14.9 % (11.5-14.5); Segmented Neutrophils % 77.3 %
[2016-12-21 06:07] LABS: Alanine Aminotransferase 124 Units/L (0-55); Albumin/Globulin Ratio 0.4 (1.1-2.2); Alkaline Phosphatase 197 Units/L (38-126); Aspartate Amino Transferase 99 Units/L (5-34); BUN/Creatinine Ratio 36 (6-26); Bilirubin,Total 0.2 mg/dL (0.2-1.2); Blood Urea Nitrogen 45 mg/dL (8-26); Calcium 7.8 mg/dL (8.6-10.8); Carbon Dioxide 27 mEq/L (19-29); Chloride 106 mEq/L (98-109); Globulin 3.3 g/dL (2.4-3.5); Glucose 167 mg/dL (70-99); Osmolality,Calculated 301 (280-300); Potassium 4.1 mEq/L (3.5-4.5); Sodium 138 mEq/L (136-145); Total Protein 4.6 g/dL (6.0-8.3); eGFR For African Americans > 60 (> 60); eGFR For Non-African Americans 55 (> 60)
[2016-12-21 06:14] LABS: Albumin 1.3 g/dL (3.5-5.0)
[2016-12-21] MEDS: *HR* Heparin 5,000 UNIT/ML VIAL SQ SCH ×2 (06:20→17:32)
[2016-12-21 10:06] LABS: Complement Component 3 126 mg/dL (88-201); Complement Component 4 20 mg/dL (10-40)
[2016-12-21] MEDS: levoFLOXacin 750 MG TABLET PO SCH (12:05)
[2016-12-21] MEDS: Gabapentin 400 MG CAPSULE PO SCH ×3 (12:05→20:21)
[2016-12-21] MEDS: Nicotine 14 MG PATCH.TD24 TD SCH (12:05)
[2016-12-21] MEDS: Furosemide 40 MG/4 ML VIAL IVP SCH (12:05)
[2016-12-21] MEDS: predniSONE 20 MG TABLET PO SCH (12:06)
--- NOTE | 2016-12-21 14:48 | Palliative Progress Note ---
Date of Encounter: 12/21/16 Time of Encounter: 09:45 - Assessment and plan (1) REBEKAH (acute kidney injury) Current Visit: Yes Status: Acute Assessment and plan: This is improving, continue to watch. And avoid nephrotoxic medications. Continues to improve slowly he is maintaining well at 4 L/m (2) COPD (chronic obstructive pulmonary disease) Current Visit: Yes Status: Acute Assessment and plan: He is feeling better with the fluid removed from both sides of the lung at this time. He is maintaining well at 4 L/m Qualifiers: COPD type: unspecified COPD Qualified Code(s): J44.9 - Chronic obstructive pulmonary disease, unspecified (3) Dyspnea Current Visit: No Status: Acute Assessment and plan: This has improved, however the patient still becomes short of breath even sometimes with talking. His oxygenation is retaining well at 4 L/m nasal cannula. Qualifiers: Dyspnea type: dyspnea on exertion Qualified Code(s): R06.09 - Other forms of dyspnea (4) Goals of care, counseling/discussion Current Visit: No Status: Acute Assessment and plan: Full code, also care for the patient returned home. Biopsy of mass is now done a course results of biopsy are not back yet. Patient will probably be going out for rehabilitation and will follow-up as an outpatient in all likelihood for the results of that biopsy. (5) Lung mass Current Visit: No Status: Acute Assessment and plan: Mass has now been biopsied, (6) Constipation Current Visit: Yes Status: Acute Assessment and plan: The patient has no recorded bowel movement since coming in, and has had when necessary medications ordered however is not gotten any, except for one dose 2 days ago. He is now on a full scheduled bowel regimen. Includes senna twice a day, as well as suppositories. - Time Spent With Patient Total time spent is greater than 50% in coordination of care (as documented) at patient's floor/unit and/or counseling patient: - Subjective Interval history: He has no complaint pain at this time states his breathing is about the same. Maybe a little bit better. He is willing to continue the workup. - Constitutional Vitals: Abnormal lab results RBC 3.71 M/mcL (4.19-5.50) L 12/21/16 05:17 Hgb 10.4 g/dL (12.9-16.9) L 12/21/16 05:17 Hct 32.9 % (37.5-50.1) L 12/21/16 05:17 RDW 14.9 % (11.5-14.5) H 12/21/16 05:17 Plt Count 136 K/mcL (140-400) L 12/21/16 05:17 ABG pCO2 54 mmHg (35-45) H 12/15/16 04:43 ABG pO2 68 mmHg (85-104) L 12/15/16 04:43 ABG HCO3 36.7 mEQ/L (21-27) H 12/15/16 04:43 ABG Total CO2 38.4 mEq/L (20-26) H 12/15/16 04:43 ABG O2 Saturation 94 % (95-98) L 12/15/16 04:43 ABG Base Excess 11.1 mEq/L (-2.0 to 3.0) H 12/15/16 04:43 BUN 45 mg/dL (8-26) H 12/21/16 05:17 Creatinine 1.26 mg/dL (0.72-1.25) H 12/21/16 05:17 Est GFR (Non-Af Amer) 55 (> 60) L 12/21/16 05:17 BUN/Creatinine Ratio 36 (6-26) H 12/21/16 05:17 Glucose 167 mg/dL (70-99) H 12/21/16 05:17 Calculated Osmolality 301 (280-300) H 12/21/16 05:17 Calcium 7.8 mg/dL (8.6-10.8) L 12/21/16 05:17 AST 99 Units/L (5-34) H 12/21/16 05:17 ALT 124 Units/L (0-55) H 12/21/16 05:17 Alkaline Phosphatase 197 Units/L (38-126) H 12/21/16 05:17 B-Natriuretic Peptide 397 pg/mL (0-100) H 12/14/16 14:22 Serum Total Protein 4.6 g/dL (6.0-8.3) L 12/21/16 05:17 Albumin 1.3 g/dL (3.5-5.0) L 12/21/16 05:17 Albumin/Globulin Ratio 0.4 (1.1-2.2) L 12/21/16 05:17 Urine Clarity Cloudy (Clear) A 12/14/16 14:43 Urine Protein 100 mg/dL (Neg-Trace) H 12/14/16 14:43 Urine Blood Moderate (Negative) H 12/14/16 14:43 Ur Leukocyte Esterase Small (Negative) H 12/14/16 14:43 Urine Microscopic RBC 30-50 per hpf (0-3) H 12/14/16 14:43 Urine Microscopic WBC 50-100 per hpf (0-3) H 12/14/16 14:43 Ur Squamous Epith Cells Many per lpf (None-Few) H 12/14/16 14:43 Urine Yeast Few per hpf (None Seen) H 12/14/16 14:43 Ur Culture Indicated? YES (NO) A 12/14/16 14:43 Protein/Creatinin Ratio 13.95 mg/mg (0-0.20) H 12/17/16 09:26 Urine Total Protein 1381 mg/dL (1-14) H 12/17/16 09:26 General appearance: Present: no acute distress - Head Head exam: Present: atraumatic, normal inspection - Eye Eye exam: Present: normal appearance - ENT ENT exam: Present: mucous membranes dry (Slightly) - Respiratory Respiratory exam: Present: decreased breath sounds - Cardiovascular Cardiovascular exam: Present: RRR - GI/Abdominal GI/Abdominal exam: Present: normal bowel sounds, soft. Absent: tenderness - Extremities Exam Extremities exam: Present: normal inspection. Absent: pedal edema, tenderness - Psychiatric Psychiatric exam: Present: normal affect, normal mood. Absent: agitated, anxious - Skin Skin exam: Present: dry, warm Palliative Quality Palliative Quality: Screen for Code Status: Yes, Screen for Goals of Care: Yes, Screen for Pain: Yes, If Pain Regimen Started, Initiate Bowel Regimen: No, Screen for Nausea/Vomitting: Yes - Labs CBC & Chem 7: 12/21/16 05:17 12/21/16 05:17 Labs: Laboratory Results - last 24 hr 12/18/16 12/21/16 12/21/16 10:20 05:17 05:17 WBC 9.5 RBC 3.71 L Hgb 10.4 L Hct 32.9 L MCV 88.7 MCH 28.0 MCHC 31.6 RDW 14.9 H Plt Count 136 L MPV 11.4 Immature Gran % 0.6 Seg Neutrophils % 77.3 Lymphocytes % 15.2 Monocytes % 6.9 Eosinophils % 0.0 Basophils % 0.0 Neutrophils # 7.3 Lymphocytes # 1.4 Monocytes # 0.7 Eosinophils # 0.0 Basophils # 0.0 Sodium 138 Potassium 4.1 Chloride 106 Carbon Dioxide 27 BUN 45 H Creatinine 1.26 H Est GFR ( Amer) > 60 Est GFR (Non-Af Amer) 55 L BUN/Creatinine Ratio 36 H Glucose 167 H Calculated Osmolality 301 H Calcium 7.8 L Total Bilirubin 0.2 AST 99 H ALT 124 H Alkaline Phosphatase 197 H Serum Total Protein 4.6 L Albumin 1.3 L Globulin 3.3 Albumin/Globulin Ratio 0.4 L Complement C3 126 Complement C4 20 - Impressions Impressions Lung Biopsy CT 12/20/16 00:00 IMPRESSION: Successful CT guided core biopsy of a left upper lobe mass. Successful CT-guided left-sided thoracentesis. D/ / Daryn Mckeon MD / Daryn Mckeon MD Interpreting Provider: Daryn Mckeon MD Thoracentesis 12/20/16 00:00 IMPRESSION: Successful CT guided core biopsy of a left upper lobe mass. Successful CT-guided left-sided thoracentesis. D/ / Daryn Mckeon MD / Daryn Mckeon MD Interpreting Provider: Daryn Mckeon MD Chest X-Ray 12/20/16 16:35 IMPRESSION: No pneumothorax. Slight interval decrease in size of left pleural effusion. D/ / Halie Mclean MD / Halie Mclean MD Interpreting Provider: Halie Mclean MD Liver Ultrasound 12/21/16 10:00 IMPRESSION: 1. Incomplete distention of the gallbladder with mobile echogenic foci suspected to represent sludge. Small nonshadowing stones may also be considered. 2. No inflammation to suggest acute cholecystitis. 3. Incidental right pleural effusion. D/ / Roland Garcia MD / Roland Garcia MD Interpreting Provider: Roland Garcia MD - ABG Interpretation ABG results: ABG ABG pH 7.44 pH Units (7.32-7.45) 12/15/16 04:43 ABG pCO2 54 mmHg (35-45) H 12/15/16 04:43 ABG pO2 68 mmHg (85-104) L 12/15/16 04:43 ABG O2 Saturation 94 % (95-98) L 12/15/16 04:43 PT/INR, D-dimer PT 11.0 Seconds (9.4-12.1) 12/14/16 14:22 Consult Discharge Plan - Plan Instructions: Prednisone (By mouth), Levofloxacin (By mouth), Heart Failure (DC ), Urinary Tract Infection in Men (DC), Atkinson Catheter Placement and Care (DC), Atkinson Catheter Placement and Care (GEN), Chronic Obstructive Pulmonary Disease ( DC), Chronic Hypertension (DC), Anemia (GEN), Pneumonia (DC), Cigarette Smoking and Your Health, Physiatrist (GEN) Additional Instructions: Follow-up appointments: If there is not an appointment listed below, please call your physician and schedule a follow-up appointment. If you have congestive heart failure and your symptoms return, make an appointment with your physician. Symptoms: If your condition changes or you experience any of the following symptoms, notify your physician immediately: Unusual or worsening pain, fever, persistent nausea and vomiting, bleeding, increase in swelling (especially in your legs), sudden weight gain, extreme dizziness, chest pain, increased drainage or redness from a wound or incision. Go to the emergency department if you experience a problem with breathing. Weights: If you have a history of swelling or shortness of breath, weigh yourself daily and notify your physician if you have a weight gain of two or more pounds in one day or 5 or more pounds in a week. If you experience any of the warning signs for stroke: Sudden numbness or weakness of the face, arm or leg; especially on one side of the body, sudden confusion, trouble speaking or understanding, sudden trouble seeing in one or both eyes, sudden trouble walking, dizziness, loss of balance or coordination, sudden sever headache with no cause; Call 911 or go to the emergency room. Stroke is a medical emergency. Some risk factors for stroke: Age, cigarette smoking, diabetes, excessive alcohol consumption, family history , high blood pressure, overweight, physical inactivity, prior stroke, heart attack, diagnosis of carotid artery stenosis or other artery disease. If you smoke, STOP: Smoking or tobacco use significantly increases your risk of heart and lung disease. Your chance of disease greatly increases if you continue to smoke. For more information, call the [facility] tobacco quit line for smoking cessation -NOW ( ) Referrals: Molly Cortez CNP [Primary Care Provider] - Prescriptions: Levofloxacin [Levaquin] 750 mg PO Q48H #4 tablet PredniSONE 40 mg PO DAILY 7 Days
--- NOTE | 2016-12-21 15:35 | Internal Med Progress Note ---
Addendum entered and electronically signed by Ramin Bhardwaj, 12/21/16 15:37: Elevated liver enzymes: Patient's AST and ALT and alkaline phosphatase have gradually been climbing since admission. Bilirubin is 0.2 Patient denies pain. Possibly related to metastatic disease or medication related. Right upper Quadrant ultrasound reveals sludge in gallbladder. No evidence of acute cholecystitis. We will continue to monitor. Original Note: <Ramin Bhardwaj - Last Filed: 12/21/16 15:32> Date of Encounter: 12/21/16 Time of Encounter: 15:32 - Assessment and plan (1) Lung mass Current Visit: No Status: Acute Assessment and plan: Concern for malignancy. Patient underwent needle aspiration biopsy today. Pathology pending. (2) Pleural effusion Current Visit: No Status: Acute Assessment and plan: Bilateral. s/p right side thoracentesis on Tuesday. Lymphocytic predominate transudative effusion. Cytology pending. Micro negative at 24h. underwent left- sided thoracentesis yesterday. (3) REBEKAH (acute kidney injury) Current Visit: Yes Status: Acute Assessment and plan: Cr Improving and good UOP. 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 Continue diureses. Continue to monitor renal function (4) Hypertension Current Visit: No Status: Chronic Assessment and plan: Stable. Continue to monitor Qualifiers: Hypertension type: essential hypertension Qualified Code(s): I10 - Essential (primary) hypertension - Subjective Interval history: Patient seen and examined at bedside. Patient has no complaints at this time. He states his breathing is pretty good. He states the swelling is improved. Patient did have small bowel movements a day. He denies fevers, chills, hemoptysis - Constitutional Vitals: Temp Pulse Resp BP Pulse Ox 97.8 F 69 16 123/62 98 12/21/16 07:19 12/21/16 07:19 12/21/16 10:50 12/21/16 11:35 12/21/16 10:50 General appearance: Present: A&O X 3, answers questions appropriately - Respiratory Respiratory exam: Present: decreased breath sounds, wheezes (Scattered expiratory). Absent: rales, rhonchi - Cardiovascular Cardiovascular exam: Present: RRR. Absent: gallop, rubs, systolic murmur - GI/Abdominal GI/Abdominal exam: Present: distended (mild), normal bowel sounds, soft. Absent : tenderness - Extremities Exam Extremities exam: Present: pedal edema (3+) - Neurological Exam Neurological exam: Present: alert, CN II-XII intact, oriented X3 Internal Medicine: Result - Labs CBC & Chem 7: 12/21/16 05:17 12/21/16 05:17 Labs: Short CBC 12/21/16 Range/Units 05:17 WBC 9.5 (4.3-11.1) K/mcL Hgb 10.4 L (12.9-16.9) g/dL Hct 32.9 L (37.5-50.1) % Plt Count 136 L (140-400) K/mcL Neutrophils # 7.3 (1.6-8.9) K/mcL BMP 12/21/16 05:17 Sodium 138 Potassium 4.1 Chloride 106 Carbon Dioxide 27 BUN 45 H Creatinine 1.26 H Glucose 167 H Calcium 7.8 L Liver Function 12/21/16 Range/Units 05:17 Total Bilirubin 0.2 (0.2-1.2) mg/dL AST 99 H (5-34) Units/L ALT 124 H (0-55) Units/L Alkaline Phosphatase 197 H (38-126) Units/L Albumin 1.3 L (3.5-5.0) g/dL - ABG Interpretation ABG results: ABG ABG pH 7.44 pH Units (7.32-7.45) 12/15/16 04:43 ABG pCO2 54 mmHg (35-45) H 12/15/16 04:43 ABG pO2 68 mmHg (85-104) L 12/15/16 04:43 ABG O2 Saturation 94 % (95-98) L 12/15/16 04:43 PT/INR, D-dimer PT 11.0 Seconds (9.4-12.1) 12/14/16 14:22 - Impressions Impressions Lung Biopsy CT 12/20/16 00:00 IMPRESSION: Successful CT guided core biopsy of a left upper lobe mass. Successful CT-guided left-sided thoracentesis. D/ / Daryn Mckeon MD / Daryn Mckeon MD Interpreting Provider: Daryn Mckeon MD Thoracentesis 12/20/16 00:00 IMPRESSION: Successful CT guided core biopsy of a left upper lobe mass. Successful CT-guided left-sided thoracentesis. D/ / Daryn cMkeon MD / Daryn Mckeon MD Interpreting Provider: Daryn Mckeon MD Chest X-Ray 12/20/16 16:35 IMPRESSION: No pneumothorax. Slight interval decrease in size of left pleural effusion. D/ / Halie Mclean MD / Halie Mclean MD Interpreting Provider: Halie Mclean MD Liver Ultrasound 12/21/16 10:00 IMPRESSION: 1. Incomplete distention of the gallbladder with mobile echogenic foci suspected to represent sludge. Small nonshadowing stones may also be considered. 2. No inflammation to suggest acute cholecystitis. 3. Incidental right pleural effusion. D/ / Roland Garcia MD / Roland Garcia MD Interpreting Provider: Roland Garcia MD - VTE Documentation of Mechanical Device: Graduated compression elastic hosiery Consult Discharge Plan - Plan Instructions: Prednisone (By mouth), Levofloxacin (By mouth), Heart Failure (DC ), Urinary Tract Infection in Men (DC), Atkinson Catheter Placement and Care (DC), [place]kinson Catheter Placement and Care (GEN), Chronic Obstructive Pulmonary Disease ( DC), Chronic Hypertension (DC), Anemia (GEN), Pneumonia (DC), Cigarette Smoking and Your Health, Ramp Agent (GEN) Additional Instructions: Follow-up appointments: If there is not an appointment listed below, please call your physician and schedule a follow-up appointment. If you have congestive heart failure and your symptoms return, make an appointment with your physician. Symptoms: If your condition changes or you experience any of the following symptoms, notify your physician immediately: Unusual or worsening pain, fever, persistent nausea and vomiting, bleeding, increase in swelling (especially in your legs), sudden weight gain, extreme dizziness, chest pain, increased drainage or redness from a wound or incision. Go to the emergency department if you experience a problem with breathing. Weights: If you have a history of swelling or shortness of breath, weigh yourself daily and notify your physician if you have a weight gain of two or more pounds in one day or 5 or more pounds in a week. If you experience any of the warning signs for stroke: Sudden numbness or weakness of the face, arm or leg; especially on one side of the body, sudden confusion, trouble speaking or understanding, sudden trouble seeing in one or both eyes, sudden trouble walking, dizziness, loss of balance or coordination, sudden sever headache with no cause; Call 911 or go to the emergency room. Stroke is a medical emergency. Some risk factors for stroke: Age, cigarette smoking, diabetes, excessive alcohol consumption, family history , high blood pressure, overweight, physical inactivity, prior stroke, heart attack, diagnosis of carotid artery stenosis or other artery disease. If you smoke, STOP: Smoking or tobacco use significantly increases your risk of heart and lung disease. Your chance of disease greatly increases if you continue to smoke. For more information, call the [employer] tobacco quit line for smoking cessation 4-641- QUIT-NOW ( ) Referrals: Molly Cortez CNP [Primary Care Provider] - Prescriptions: Levofloxacin [Levaquin] 750 mg PO Q48H #4 tablet PredniSONE 40 mg PO DAILY 7 Days <John Watkins - Last Filed: 12/21/16 17:59> - Assessment and plan (1) Acute and chronic respiratory failure with hypoxia Current Visit: Yes Status: Acute Assessment and plan: Continue to follow. (2) Acute on chronic diastolic (congestive) heart failure Current Visit: Yes Status: Resolved (3) Hypertension Current Visit: No Status: Chronic Qualifiers: Hypertension type: essential hypertension Qualified Code(s): I10 - Essential (primary) hypertension (4) Pleural effusion Current Visit: No Status: Acute (5) Lung mass Current Visit: No Status: Acute (6) COPD (chronic obstructive pulmonary disease) Current Visit: Yes Status: Acute Qualifiers: COPD type: unspecified COPD Qualified Code(s): J44.9 - Chronic obstructive pulmonary disease, unspecified (7) Coronary artery disease Current Visit: Yes Status: Acute Qualifiers: Coronary Disease-Associated Artery/Lesion type: [place] artery [place] vs. transplanted heart: [place] heart Associated angina: angina presence unspecified Qualified Code(s): I25.10 - Atherosclerotic heart disease of [place] coronary artery without angina pectoris - Constitutional Vitals: Temp Pulse Resp BP Pulse Ox 97.6 F 79 18 120/72 94 L 12/21/16 16:38 12/21/16 16:38 12/21/16 16:38 12/21/16 16:38 12/21/16 16:38 Internal Medicine: Result - Labs CBC & Chem 7: 12/21/16 05:17 12/21/16 05:17 Labs: Short CBC 12/21/16 Range/Units 05:17 WBC 9.5 (4.3-11.1) K/mcL Hgb 10.4 L (12.9-16.9) g/dL Hct 32.9 L (37.5-50.1) % Plt Count 136 L (140-400) K/mcL Neutrophils # 7.3 (1.6-8.9) K/mcL BMP 12/21/16 05:17 Sodium 138 Potassium 4.1 Chloride 106 Carbon Dioxide 27 BUN 45 H Creatinine 1.26 H Glucose 167 H Calcium 7.8 L Liver Function 12/21/16 Range/Units 05:17 Total Bilirubin 0.2 (0.2-1.2) mg/dL AST 99 H (5-34) Units/L ALT 124 H (0-55) Units/L Alkaline Phosphatase 197 H (38-126) Units/L Albumin 1.3 L (3.5-5.0) g/dL - ABG Interpretation ABG results: ABG ABG pH 7.44 pH Units (7.32-7.45) 12/15/16 04:43 ABG pCO2 54 mmHg (35-45) H 12/15/16 04:43 ABG pO2 68 mmHg (85-104) L 12/15/16 04:43 ABG O2 Saturation 94 % (95-98) L 12/15/16 04:43 PT/INR, D-dimer PT 11.0 Seconds (9.4-12.1) 12/14/16 14:22 - Impressions Impressions Chest X-Ray 12/20/16 16:35 IMPRESSION: No pneumothorax. Slight interval decrease in size of left pleural effusion. D/ / Halie Mclean MD / Halie Mclean MD Interpreting Provider: Halie Mclean MD Liver Ultrasound 12/21/16 10:00 IMPRESSION: 1. Incomplete distention of the gallbladder with mobile echogenic foci suspected to represent sludge. Small nonshadowing stones may also be considered. 2. No inflammation to suggest acute cholecystitis. 3. Incidental right pleural effusion. D/ / Roland Garcia MD / Roland Garcia MD Interpreting Provider: Roland Garcia MD - Attending Attestation I examined this patient and my medical decision-making was reviewed with the Resident Physician on 12/21/16. I agree with the documented findings, disposition and treatment plan as described except to the extent set forth below. Mr. Bustos is currently admitted for acute respiratory distress/failure associated with pleural effusion. He is s/p thoracentesis. He remains moderate to high risk due to potential for worsening respiratory status. Mr. Bustos feels OK. He wants to go home tomorrow. Breathing is doing better after fluid removed. Exam Alert. Comfortable. Heart reg Wheeze present Edema present I/P 1. Acute hypoxic resp failure due to pleural effusions, lung mass - 2. Lung mass 3. Diastolic heart failure - chronic. Not in exacerbation 4. Elevated liver function - ? congestion vs meds vs other 5. REBEKAH - improving 6. HTN Further diagnoses and plan as above.
[2016-12-21] MEDS: Sennosides/Docusate Sodium TABLET PO SCH (20:22)
[2016-12-21] MEDS ORDERED: Bisacodyl 10 MG RECTAL SUPPOSITORY RC SCH (21:00)
[2016-12-22 03:23] LABS: Urine Collection Duration RANDOM hr; Urine Collection Volume RANDOM mL
[2016-12-22] MEDS: Ipratropium/Albuterol Neb 3 ML IH SCH ×2 (04:24→11:00)
[2016-12-22] MEDS: *HR* Heparin 5,000 UNIT/ML VIAL SQ SCH (05:38)
[2016-12-22 06:26] LABS: Basophils % 0.1 %; Eosinophils % 0.1 %; Hematocrit 32.4 % (37.5-50.1); Hemoglobin 10.1 g/dL (12.9-16.9); Immature Granulocytes % 1.2 % (0-4); Lymphocytes # 1.7 K/mcL (0.6-4.6); Lymphocytes % 17.9 %; Mean Corpuscular HGB Conc 31.2 g/dL (31.6-35.5); Mean Corpuscular Hemoglobin 27.6 pg (28.0-33.3); Mean Corpuscular Volume 88.5 fL (83.0-100.0); Mean Platelet Volume 10.9 fL (9.4-12.4); Monocytes # 0.8 K/mcL (0.0-1.3); Monocytes % 8.7 %; Neutrophils # 6.8 K/mcL (1.6-8.9); Platelet Count 125 K/mcL (140-400); Red Blood Count 3.66 M/mcL (4.19-5.50); Red Cell Distribution Width 15.1 % (11.5-14.5)
[2016-12-22 06:30] LABS: Alanine Aminotransferase 155 Units/L (0-55); Albumin/Globulin Ratio 0.4 (1.1-2.2); Alkaline Phosphatase 240 Units/L (38-126); Aspartate Amino Transferase 134 Units/L (5-34); BUN/Creatinine Ratio 31 (6-26); Bilirubin,Direct 0.1 mg/dL (0.0-0.5); Bilirubin,Indirect 0.1 mg/dL (0.0-1.2); Bilirubin,Total 0.2 mg/dL (0.2-1.2); Blood Urea Nitrogen 41 mg/dL (8-26); Carbon Dioxide 27 mEq/L (19-29); Chloride 107 mEq/L (98-109); Globulin 3.1 g/dL (2.4-3.5); Glucose 137 mg/dL (70-99); Magnesium 1.7 mg/dL (1.6-2.6); Osmolality,Calculated 302 (280-300); Potassium 4.1 mEq/L (3.5-4.5); Sodium 140 mEq/L (136-145); Total Protein 4.3 g/dL (6.0-8.3); eGFR For African Americans > 60 (> 60); eGFR For Non-African Americans 52 (> 60)
[2016-12-22 06:31] LABS: Albumin 1.2 g/dL (3.5-5.0)
[2016-12-22 07:46] VITALS: BP 118/59
[2016-12-22] MEDS: Nicotine 14 MG PATCH.TD24 TD SCH (08:42)
[2016-12-22] MEDS: predniSONE 20 MG TABLET PO SCH (08:42)
[2016-12-22] MEDS: Gabapentin 400 MG CAPSULE PO SCH (08:42)
[2016-12-22] MEDS: Furosemide 40 MG/4 ML VIAL IVP SCH (08:42)
[2016-12-22] MEDS: Sennosides/Docusate Sodium TABLET PO SCH (08:42)
[2016-12-22 08:49] LABS: ANA IgG by ELISA NONE DETECTED (None Detected)
[2016-12-22] MEDS ORDERED: Sennosides 8.6 MG TABLET PO SCH (09:00)
--- NOTE | 2016-12-22 09:18 | Discharge Summary ---
<Ramin Bhardwaj - Last Filed: 12/22/16 09:13> Date of Encounter: 12/22/16 Time of Encounter: 09:14 - Discharge Diagnosis (1) Lung mass Priority: Primary Status: Acute (2) Pleural effusion Priority: Primary Status: Acute (3) REBEKAH (acute kidney injury) Priority: Primary Status: Acute (4) Hypertension Priority: Secondary Status: Chronic Qualifiers: Hypertension type: essential hypertension Qualified Code(s): I10 - Essential (primary) hypertension - Discharge Medications Prescriptions: Levofloxacin [Levaquin] 750 mg PO Q48H #4 tablet PredniSONE 40 mg PO DAILY 7 Days Home Medications: Albuterol Sulfate [Albuterol Inhaler] 2 puff IH Q4HR PRN 08/20/15 [History] Calcium Carbonate/Vitamin D3 [Calcium 600 + D Tablet] 1 each PO DAILY 08/20/15 [ History] Cholecalciferol (Vitamin D3) [Vitamin D] 1,000 unit PO DAILY 08/20/15 [History] Dutasteride [Avodart] 0.5 mg PO DAILY 08/20/15 [History] Gabapentin [Neurontin] 400 mg PO TID 08/20/15 [History] Levothyroxine [Synthroid] 100 mcg PO DAILY 08/20/15 [History] Guaifenesin [Mucinex] 600 mg PO Q12HR PRN 11/13/16 [History] Ipratropium/Albuterol Sulfate [Combivent Respimat Inhal [place]] 1 - 2 puff IH QID 11/13/16 [History] Sennosides/Docusate Sodium [Senna-Docusate Sodium Tablet] 8.6 mg PO HS 11/13/16 [History] Tamsulosin [Flomax] 0.4 mg PO HS 11/13/16 [History] Ipratropium/Albuterol Neb [Duoneb] 3 ml IH Q6H PRN 12/14/16 [History] Metoprolol [Lopressor] 25 mg PO BID 12/14/16 [History] Mometasone/Formoterol [Dulera 200 Mcg/5 Mcg Inhaler] 2 puff IH BID 12/14/16 [ History] Levofloxacin [Levaquin] 750 mg PO Q48H #4 tablet 12/16/16 [Rx] PredniSONE 40 mg PO DAILY 7 Days 12/16/16 [Rx] Allergies/Adverse Reactions: Allergies No Known Allergies Allergy (Verified 11/13/16 20:07) Procedures/tests Complete & Pending: Procedures Performed prior 72 hours Category Date Time Status CT biopsy lung LT [CT] Routine Cat Scan 12/20/[address] guided thoracentesis [CT] Routine Cat Scan 12/20/16 Completed US liver [US] Routine Exams 12/21/16 10:00 Completed Date of admission: 12/15/16 13:47 Primary care physician: Molly Cortez CNP Consults: 12/16/16 09:56 Consult to Palliative Care [CONS] Routine Comment: Consulting Provider: Palliative Care [place] 12/20/16 09:34 Consult to Interventional Radiology [CONS] Routine Consulting Provider: Radiology Interventional Cols Reason for Consult: Lung mass/pleural effusion Call Completed: Yes Discharging clinician: Ramin Bhardwaj - Patient Status Disposition: Home, Self-Care Condition: Fair Functional capacity at discharge: independent ambulation Overall status at discharge: patient is progressing back to baseline - Discharge Instructions Instructions: Prednisone (By mouth), Levofloxacin (By mouth), Heart Failure (DC ), Thoracentesis (DC), Urinary Tract Infection in Men (DC), Atkinson Catheter Placement and Care (DC), Atkinson Catheter Placement and Care (GEN), Hypothyroidism (DC), Chronic Obstructive Pulmonary Disease (DC), Chronic Hypertension (DC), Anemia (GEN), Cigarette Smoking and Your Health, Post Doc Fellowship (GEN) Follow Up With: Molly Cortez CNP [Primary Care Provider] - Additional Instructions: Please follow up with your PCP as soon as possible Resume your home meds. Return for any new or worsening symptoms - Diet and Activity Activity: increase activity as tolerated Diet: low salt diet Hospital course: Mr. Bustos is a 76 year old male - Time Spent with Patient Total time spent providing and/or coordinating discharge services: - Constitutional Vitals: Temp Pulse Resp BP Pulse Ox 97.8 F 72 16 118/59 94 L 12/22/16 07:42 12/22/16 07:42 12/22/16 07:42 12/22/16 07:42 12/22/16 07:42 General appearance: Present: A&O X 3, answers questions appropriately Exam: agitated - Respiratory Respiratory exam: Present: decreased breath sounds, wheezes (bilateral end expiratory). Absent: rales, rhonchi - Cardiovascular Cardiovascular exam: Present: RRR. Absent: gallop, rubs, systolic murmur - Extremities Exam Extremities exam: Present: pedal edema (2+ bilateral) - Neurological Exam Neurological exam: Present: alert, CN II-XII intact, oriented X3, no focal deficits - VTE Documentation of Mechanical Device: Graduated compression elastic hosiery <John Watkins Jose - Last Filed: 12/22/16 13:19> - Discharge Diagnosis (1) Acute and chronic respiratory failure with hypoxia Priority: Primary Status: Acute (2) Acute on chronic diastolic (congestive) heart failure Priority: Secondary Status: Resolved (3) Pleural effusion Status: Acute (4) Hypertension Status: Chronic Qualifiers: Hypertension type: essential hypertension Qualified Code(s): I10 - Essential (primary) hypertension (5) Lung mass Status: Acute (6) COPD (chronic obstructive pulmonary disease) Priority: Secondary Status: Acute Qualifiers: COPD type: unspecified COPD Qualified Code(s): J44.9 - Chronic obstructive pulmonary disease, unspecified (7) Coronary artery disease Priority: Secondary Status: Acute Qualifiers: Coronary Disease-Associated Artery/Lesion type: [place] artery [place] vs. transplanted heart: [place] heart Associated angina: angina presence unspecified Qualified Code(s): I25.10 - Atherosclerotic heart disease of [place] coronary artery without angina pectoris (8) Hypothyroidism Priority: Secondary Status: Chronic Qualifiers: Hypothyroidism type: acquired Qualified Code(s): E03.9 - Hypothyroidism, unspecified (9) Nicotine dependence with nicotine-induced disorder Priority: Secondary Status: Chronic Qualifiers: Nicotine product type: cigarettes Qualified Code(s): F17.219 - Nicotine dependence, cigarettes, with unspecified nicotine-induced disorders (10) Constipation Priority: Secondary Status: Acute Qualifiers: Constipation type: slow transit constipation Qualified Code(s): K59.01 - Slow transit constipation (11) Protein-calorie malnutrition, severe Priority: Secondary Status: Chronic Procedures/tests Complete & Pending: Procedures Performed prior 72 hours Category Date Time Status CT biopsy lung LT [CT] Routine Cat Scan 12/20/[address] guided thoracentesis [CT] Routine Cat Scan 12/20/16 Completed US liver [US] Routine Exams 12/21/16 10:00 Completed Date of admission: 12/15/16 13:47 Primary care physician: Molly Cortez CNP Consults: 12/16/16 09:56 Consult to Palliative Care [CONS] Routine Comment: Consulting Provider: Palliative Care [place] 12/20/16 09:34 Consult to Interventional Radiology [CONS] Routine Consulting Provider: Radiology Interventional Cols Reason for Consult: Lung mass/pleural effusion Call Completed: Yes Hospital course: Mr. Bustos is a 76 year old male - Time Spent with Patient Total time spent providing and/or coordinating discharge services: 38min - Constitutional Vitals: Temp Pulse Resp BP Pulse Ox 97.8 F 72 16 118/59 94 L 12/22/16 07:42 12/22/16 07:42 12/22/16 11:01 12/22/16 07:42 12/22/16 11:01 - Attending Attestation I examined this patient and my medical decision-making was reviewed with the Resident Physician on 12/22/16. I agree with the documented findings, disposition and treatment plan as described except to the extent set forth below. Mr. Bustos feels OK at this time. No new issues overnight. He wants to go home today. Exam Alert. Comfortable Heart reg No wheeze No edema now Plan D/C today LFTs are still elevated (slightly higher than yesterday). Pt encouraged to follow up with PCP especially in light of needed lab recheck and biopsy results still pending. He would not tell us name of PCP at this time.
--- NOTE | 2016-12-22 13:37 | Palliative Progress Note ---
Date of Encounter: 12/22/16 Time of Encounter: 09:50 - Assessment and plan (1) REBEKAH (acute kidney injury) Status: Acute Assessment and plan: No significant changes today. Possibly a little bit worse but hard to tell could all be lab error. Essentially no Significant change. (2) COPD (chronic obstructive pulmonary disease) Status: Acute Assessment and plan: He is feeling better with the fluid removed from both sides of the lung at this time. He is maintaining well at 4 L/m Day he is demanding to go home and is not wanting to have rehabilitation. Qualifiers: COPD type: unspecified COPD Qualified Code(s): J44.9 - Chronic obstructive pulmonary disease, unspecified (3) Dyspnea Status: Acute Assessment and plan: This has improved, however the patient still becomes short of breath even sometimes with talking. His oxygenation is retaining well at 4 L/m nasal cannula. Today he is demanding to go home and does not wish to do rehabilitation. Qualifiers: Dyspnea type: dyspnea on exertion Qualified Code(s): R06.09 - Other forms of dyspnea (4) Goals of care, counseling/discussion Status: Acute Assessment and plan: Full code, Biopsy of mass is now done she will need to follow-up as an outpatient to get the results of this. He has been encouraged to follow up, it is difficult to tell if he will actually do this or not. (5) Lung mass Status: Acute Assessment and plan: Mass has now been biopsied, Follow-up as outpatient. (6) Constipation Status: Acute Assessment and plan: The patient has no recorded bowel movement since coming in, and has had when necessary medications ordered however is not gotten any, except for one dose 2 days ago. He is now on a full scheduled bowel regimen. Includes senna twice a day, as well as suppositories. Having bowel movements the time of this exam. Bowels also removed yesterday. Qualifiers: Constipation type: slow transit constipation Qualified Code(s): K59.01 - Slow transit constipation - Time Spent With Patient Total time spent is greater than 50% in coordination of care (as documented) at patient's floor/unit and/or counseling patient: - Subjective Interval history: He has no complaint pain at this time, states he wants to go home and does not wish to consider rehabilitation. Unclear whether not the patient's willing to follow up or not. - Constitutional Vitals: Abnormal lab results RBC 3.66 M/mcL (4.19-5.50) L 12/22/16 05:28 Hgb 10.1 g/dL (12.9-16.9) L 12/22/16 05:28 Hct 32.4 % (37.5-50.1) L 12/22/16 05:28 MCH 27.6 pg (28.0-33.3) L 12/22/16 05:28 MCHC 31.2 g/dL (31.6-35.5) L 12/22/16 05:28 RDW 15.1 % (11.5-14.5) H 12/22/16 05:28 Plt Count 125 K/mcL (140-400) L 12/22/16 05:28 ABG pCO2 54 mmHg (35-45) H 12/15/16 04:43 ABG pO2 68 mmHg (85-104) L 12/15/16 04:43 ABG HCO3 36.7 mEQ/L (21-27) H 12/15/16 04:43 ABG Total CO2 38.4 mEq/L (20-26) H 12/15/16 04:43 ABG O2 Saturation 94 % (95-98) L 12/15/16 04:43 ABG Base Excess 11.1 mEq/L (-2.0 to 3.0) H 12/15/16 04:43 BUN 41 mg/dL (8-26) H 12/22/16 05:28 Creatinine 1.33 mg/dL (0.72-1.25) H 12/22/16 05:28 Est GFR (Non-Af Amer) 52 (> 60) L 12/22/16 05:28 BUN/Creatinine Ratio 31 (6-26) H 12/22/16 05:28 Glucose 137 mg/dL (70-99) H 12/22/16 05:28 Calculated Osmolality 302 (280-300) H 12/22/16 05:28 Calcium 8.0 mg/dL (8.6-10.8) L 12/22/16 05:28 AST 134 Units/L (5-34) H 12/22/16 05:28 ALT 155 Units/L (0-55) H 12/22/16 05:28 Alkaline Phosphatase 240 Units/L (38-126) H 12/22/16 05:28 B-Natriuretic Peptide 397 pg/mL (0-100) H 12/14/16 14:22 Serum Total Protein 4.3 g/dL (6.0-8.3) L 12/22/16 05:28 Albumin 1.2 g/dL (3.5-5.0) L 12/22/16 05:28 Albumin/Globulin Ratio 0.4 (1.1-2.2) L 12/22/16 05:28 Urine Clarity Cloudy (Clear) A 12/14/16 14:43 Urine Protein 100 mg/dL (Neg-Trace) H 12/14/16 14:43 Urine Blood Moderate (Negative) H 12/14/16 14:43 Ur Leukocyte Esterase Small (Negative) H 12/14/16 14:43 Urine Microscopic RBC 30-50 per hpf (0-3) H 12/14/16 14:43 Urine Microscopic WBC 50-100 per hpf (0-3) H 12/14/16 14:43 Ur Squamous Epith Cells Many per lpf (None-Few) H 12/14/16 14:43 Urine Yeast Few per hpf (None Seen) H 12/14/16 14:43 Ur Culture Indicated? YES (NO) A 12/14/16 14:43 Protein/Creatinin Ratio 13.95 mg/mg (0-0.20) H 12/17/16 09:26 U Free [place] Light Ch 28.60 mg/dL (0.14-2.42) H 12/19/16 02:10 U Free [place] Light Ch 10.90 mg/dL (0.02-0.67) H 12/19/16 02:10 General appearance: Present: mild distress. Absent: no acute distress ( Shortness of breath) - Head Head exam: Present: atraumatic, normal inspection - Eye Eye exam: Present: normal appearance - Respiratory Respiratory exam: Present: decreased breath sounds, prolonged expiratory phase, wheezes - Cardiovascular Cardiovascular exam: Present: RRR - GI/Abdominal GI/Abdominal exam: Present: normal bowel sounds, soft. Absent: tenderness - Extremities Exam Extremities exam: Present: normal inspection. Absent: pedal edema, tenderness - Neurological Exam Neurological exam: Present: alert - Psychiatric Psychiatric exam: Absent: agitated, anxious - Skin Skin exam: Present: dry, warm Palliative Quality Palliative Quality: Screen for Code Status: Yes, Screen for Goals of Care: Yes, Screen for Pain: Yes, If Pain Regimen Started, Initiate Bowel Regimen: No, Screen for Nausea/Vomitting: Yes - Labs CBC & Chem 7: 12/22/16 05:28 12/22/16 05:28 Labs: Laboratory Results - last 24 hr 12/19/16 12/19/16 12/22/16 02:10 05:06 05:28 WBC 9.5 RBC 3.66 L Hgb 10.1 L Hct 32.4 L MCV 88.5 MCH 27.6 L MCHC 31.2 L RDW 15.1 H Plt Count 125 L MPV 10.9 Immature Gran % 1.2 Seg Neutrophils % 72.0 Lymphocytes % 17.9 Monocytes % 8.7 Eosinophils % 0.1 Basophils % 0.1 Neutrophils # 6.8 Lymphocytes # 1.7 Monocytes # 0.8 Eosinophils # 0.0 Basophils # 0.0 Sodium Potassium Chloride Carbon Dioxide BUN Creatinine Est GFR ( Amer) Est GFR (Non-Af Amer) BUN/Creatinine Ratio Glucose Calculated Osmolality Calcium Magnesium Total Bilirubin Direct Bilirubin Indirect Bilirubin AST ALT Alkaline Phosphatase Serum Total Protein Albumin Globulin Albumin/Globulin Ratio Ur Collection Duration RANDOM Urine Total Volume RANDOM Urine Total Protein SEE NOTE Urine Albumin (PEP) DETECTED U [id number] DETECTED U [id number] DETECTED U Beta Globulin DETECTED U Gamma Globulin DETECTED U Free [place] Light Ch 28.60 H U Free [place] Chain 24h SEE NOTE U Free Lambda Light Ch 10.90 H U Free Lambda Chn 24h SEE NOTE U Free [place]/Lambda 2.62 Urine UYEN Interpret SEE NOTE PRADEEP Screen NONE DETECTED 12/22/16 05:28 WBC RBC Hgb Hct MCV MCH MCHC RDW Plt Count MPV Immature Gran % Seg Neutrophils % Lymphocytes % Monocytes % Eosinophils % Basophils % Neutrophils # Lymphocytes # Monocytes # Eosinophils # Basophils # Sodium 140 Potassium 4.1 Chloride 107 Carbon Dioxide 27 BUN 41 H Creatinine 1.33 H Est GFR ( Amer) > 60 Est GFR (Non-Af Amer) 52 L BUN/Creatinine Ratio 31 H Glucose 137 H Calculated Osmolality 302 H Calcium 8.0 L Magnesium 1.7 Total Bilirubin 0.2 Direct Bilirubin 0.1 Indirect Bilirubin 0.1 AST 134 H ALT 155 H Alkaline Phosphatase 240 H Serum Total Protein 4.3 L Albumin 1.2 L Globulin 3.1 Albumin/Globulin Ratio 0.4 L Ur Collection Duration Urine Total Volume Urine Total Protein Urine Albumin (PEP) U [id number] U Kwzgy-[id number] U Beta Globulin U Gamma Globulin U Free [place] Light Ch U Free [place] Chain 24h U Free Lambda Light Ch U Free Lambda Chn 24h U Free [place]/Lambda Urine UYEN Interpret PRADEEP Screen - ABG Interpretation ABG results: ABG ABG pH 7.44 pH Units (7.32-7.45) 12/15/16 04:43 ABG pCO2 54 mmHg (35-45) H 12/15/16 04:43 ABG pO2 68 mmHg (85-104) L 12/15/16 04:43 ABG O2 Saturation 94 % (95-98) L 12/15/16 04:43 PT/INR, D-dimer PT 11.0 Seconds (9.4-12.1) 12/14/16 14:22 Consult Discharge Plan - Plan Instructions: Prednisone (By mouth), Levofloxacin (By mouth), Heart Failure (DC ), Thoracentesis (DC), Urinary Tract Infection in Men (DC), Atkinson Catheter Placement and Care (DC), Atkinson Catheter Placement and Care (GEN), Hypothyroidism (DC), Chronic Obstructive Pulmonary Disease (DC), Chronic Hypertension (DC), Anemia (GEN), Cigarette Smoking and Your Health, Barrel Maker (GEN) Additional Instructions: Please follow up with your PCP as soon as possible Resume your home meds. Return for any new or worsening symptoms Referrals: Molly Cortez CNP [Primary Care Provider] - Prescriptions: Levofloxacin [Levaquin] 750 mg PO Q48H #4 tablet PredniSONE 40 mg PO DAILY 7 Days
[2016-12-23 11:15] LABS: Immunoglobulin G 838 mg/dL (768-1632); Immunoglobulin M 600 mg/dL (35-263)
[2016-12-23 11:16] LABS: Immunoglobulin A 254 mg/dL (68-408)
[2016-12-23 15:21] LABS: Beta Globulin (PEP) 0.72 g/dL (0.48-1.10)
[2016-12-23 15:30] LABS: IFE Reflexed IFE Done
== END 2016-12-22 13:15 | disposition home or self-care (01) | DRG 291 ==
LOC: EMEROO 13:18 → 2NENU 13:18 → SUATTDRO 12-15 13:47
PROVIDERS: ADMIT Family Medicine; ATTEND Internal Medicine